=== PATIENT | female | born 1965 | race Caucasian/White ===

== ENCOUNTER 2016-07-25 11:43 | Emergency (ER) | payer MEDICARE, OTHER ==
[2016-07-25 11:50] VITALS: BP 166/98
--- NOTE | 2016-07-25 12:11 | ERNOTE ---
ENT HPI Date of Service: 07/25/16 Time Seen by Provider: 07/25/16 11:52 Source: patient Exam Limitations: no limitations - Immun/Allergies/Home Medications Immunizations: IMMUNIZATION HX Immunizations Up to Date Yes Allergies/Adverse Reactions: Allergies Allergy/AdvReac Type Severity Reaction Status Date / Time Penicillins Allergy Mild Hives Verified 07/25/16 11:50 meloxicam [From Mobic] AdvReac Intermediate swelling Verified 07/25/16 11:50 in extremites acetaminophen [From Percocet] AdvReac Mild "KNOCKS Verified 07/25/16 11:50 HER OUT" aripiprazole [From Abilify] AdvReac Mild lower leg Verified 07/25/16 11:50 edema oxycodone HCl [From Percocet] AdvReac Mild "KNOCKS Verified 07/25/16 11:50 HER OUT" tizanidine [Tizanidine] AdvReac Mild dizzy, dry Verified 07/25/16 11:50 mouth Home Medications: HOME MEDICATIONS Budesonide/Formoterol Fumarate [Symbicort 160-4.5 Mcg Inhaler] 2 puff IH BID [Last Taken Unknown] Esomeprazole Magnesium [Nexium] 40 mg PO DAILY 09/26/13 [Last Taken Unknown] Levothyroxine Sodium [Synthroid] 175 mcg PO DAILY 09/26/13 [Last Taken Unknown] Losartan Potassium 100 mg PO DAILY 09/26/13 [Last Taken Unknown] EPINEPHrine [Epipen] 0.3 mg IJ ONCE PRN 05/01/14 [Last Taken Unknown] Aspirin [Aspirin Enteric Coated] 81 mg PO DAILY 03/16/15 [Last Taken Unknown] ALPRAZolam [Xanax] 1 mg PO BID 06/23/15 [Last Taken Unknown] Clonidine HCl [Catapres] 0.1 mg PO BID #60 tab 06/23/15 [Last Taken Unknown] Meclizine HCl [Antivert] 25 mg PO QID PRN #40 tab 07/01/15 [Last Taken Unknown] Acetaminophen [Extra Strength Non-Aspirin] 1,000 mg PO Q6H PRN 01/12/16 [Last Taken Unknown] Ascorbic Acid [Vitamin C] 1,000 mg PO BID 01/12/16 [Last Taken Unknown] Atorvastatin Calcium [Lipitor] 40 mg PO DAILY 01/12/16 [Last Taken Unknown] Calcium Carbonate/Vitamin D3 [Calcium 600 + Vit D3 Caplet] 1 each PO DAILY 01/11 [Last Taken Unknown] Cholecalciferol (Vitamin D3) [Vitamin D3] 1,000 unit PO DAILY 01/12/16 [Last Taken Unknown] Cyanocobalamin (Vitamin B-12) [B-12] 1,000 mcg PO DAILY 01/12/16 [Last Taken Unknown] Dextroamphetamine/Amphetamine [Adderall 30 mg Tablet] 30 mg PO BID 01/12/16 [ Last Taken Unknown] Ferrous Sulfate 325 mg PO DAILY 01/12/16 [Last Taken Unknown] Lamotrigine [Lamictal] 25 mg PO DAILY 01/12/16 [Last Taken Unknown] Milnacipran HCl [Savella] 50 mg PO BID 01/12/16 [Last Taken Unknown] Multivitamins [Multivitamin Arina] 1 cap PO DAILY 01/12/16 [Last Taken Unknown] Sulindac 200 mg PO BID PRN 01/12/16 [Last Taken Unknown] Ziprasidone HCl [Geodon] 60 mg PO BID 01/12/16 [Last Taken Unknown] HYDROcodone/ACETAMINOPHEN [[place] 5-325] 1 - 2 tab PO Q4H PRN #30 tab 02/02/16 [ Last Taken Unknown] Cephalexin Monohydrate [Keflex] 500 mg PO QID #40 cap 07/25/16 [Last Taken Unknown] - History of Present Illness Narrative: Pt. comes in with a lump on her R christianity that she has had for four months that has worsened over malik past two weeks. Pt. denies any fevers, prehospital treatment, headaches, dizziness, NVD, alleviating factors or aggravating factors but does state that it has become painful to touch recently as well. Review of Systems - Review of Systems Constitutional: Present: no symptoms reported. Absent: recent illness, fever, chills, fatigue, malaise EYE: Present: no symptoms reported ENT: Present: no symptoms reported Respiratory: Present: no symptoms reported. Absent: shortness of breath, cough , wheezing Cardiology: Present: no symptoms reported. Absent: chest pain, palpitations, edema Gastrointestinal/Abdominal: Present: no symptoms reported. Absent: nausea, vomiting, diarrhea Genitourinary: Present: no symptoms reported Musculoskeletal: Present: no symptoms reported. Absent: back pain, joint pain Skin: Present: lumps - R christianity All Other Systems: All systems neg except as marked - Patient's Past Medical History Patient History - Medical: Diabetes Type 2, Depression, Fibromyalgia, GERD, Headache, Hypothyroidism Patient History - Cardiac/Respiratory: Hypertension Patient History - Cancer: Thyroid Patient History - Surgical Procedures: Back Surgery, Cancer Surgery, Cholecystectomy, Colonoscopy, EGD, Tubal Ligation, T & A, Other - Family History Father Family History - Medical: , No pertinent hx Family History - Cardiac/Respiratory: Hypertension, Myocardial Infarction Mother Family History - Medical: , Alzheimer's Disease, Other Family History - Cardiac/Respiratory: CVA/Stroke, Hypertension, TIA - Social History Living Situations: home Smoking Status: Never smoker Have you smoked in the past 12 months: No Alcohol Use: rarely Drug Use: none Physical Exam - Physical Exam General Appearance: Present: wd/wn, alert, no apparent distress Eye Exam: Normal inspection: bilateral, PERRL: bilateral, EOMI: bilateral Ears, Nose, Throat: Present: normal ENT inspection, hearing grossly normal, normal pharynx Neck: Present: normal inspection, nontender Respiratory: Present: no respiratory distress, normal breath sounds, no accessory muscle use, chest nontender, lungs clear Cardiovascular/Chest: Present: regular rate, rhythm, no murmur, normal peripheral pulses Gastrointestinal/Abdominal: Present: normal bowel sounds, nontender, nondistended, soft, no organomegaly Back Exam: Present: normal inspection, normal range of motion, no CVA tenderness , no vertebral tenderness Extremity Exam: Present: normal inspection, non-tender, no edema, normal range of motion Neurological Exam: Present: alert, oriented, normal mood/affect, no motor/ sensory deficits, performance instructor II-XII nml as tested, normal cerebellar test Skin Exam: Present: other - R christianity mass soft nonmobile 3cm in diameter Lymphatic Exam: Present: no adenopathy ED Progress - Date and Time Seen: Date and Time: 07/25/16 12:55 Pt. without any demonstrated cause for Lump will assume that it is localized cellulitis and treat with abx and have pt. follow up with PCP. in 2-3 days. - Results and Orders Patient's Lab Results:: I have reviewed the patient's lab results. - Vital Signs Patient's Vital Signs:: I have reviewed the patient's vital signs. Vital Signs: Vital Signs 07/25/16 11:47 Temperature 36.3 C L Pulse Rate 95 Respiratory 15 Rate Blood Pressure 166/98 O2 Sat by Pulse 98 Oximetry - CT/Ultrasound CT/Ultrasound Narrative: US of lump over temporal area Targeted ultrasound evaluation demonstrates no focal solid or cystic mass or fluid collection. IMPRESSION: 1. Negative targeted ultrasound evaluation. - Progress/Reassessment Chief Complaint: Facial Injury Departure Clinical Impression: Cellulitis Qualifiers: Site of cellulitis: face Qualified Code(s): L03.211 - Cellulitis of face - Departure Disposition: Home self-care Condition: Good Instructions: Cellulitis, Adult, [id number] Additional Instructions: Please follow up with Dr Uvaldo sahrp in 2-3 days. Referrals: Santiago Dougherty MD [Primary Care Provider] - Prescriptions: Cephalexin Monohydrate [Keflex] 500 mg PO QID #40 cap
[2016-07-25 12:26] LABS: Hematocrit 40.7 % (37.0-47.0); Hemoglobin 13.5 gm/dL (12.5-16.0); Mean Cell Volume 87.2 fl (78-100); Mean Corpuscular Hemoglobin 28.9 pg (27-31); Mean Corpuscular Hgb Conc 33.2 g/dl (32-36); Mean Platelet Volume 8.8 fl (6.0-9.5); Neutrophil # 4.2 K/mm3 (1.3-6.0); Neutrophil % 56.6 % (42-75.0); Platelet Count 353 K/mm3 (150-450); Red Blood Count 4.67 M/mm3 (4.2-5.4); Red Cell Distribution Width 13.8 % (11.5-14.0); White Blood Count 7.3 K/mm3 (4.0-10.5)
[2016-07-25 12:48] LABS: Anion Gap 11.7 mmol/L (6.8-13.8); BUN/Creatinine Ratio 16.5 (9.0-21.6); Bilirubin, Total 0.6 mg/dL (0.0-1.1); Ca. Corrected For Albumin 8.8 mg/dL (8.4-10.2); Calcium * 9.1 mg/dL (7.9-10.9); Potassium 3.7 mmol/L (3.4-4.6); TSH * 1.113 uIU/mL (0.358-3.74); Total Protein 7.7 gm/dL (6.2-8.2)
== END 2016-07-25 13:06 | disposition home or self-care (01) ==
LOC: ER 11:43
DX: L03.211 Cellulitis of face (principal); Z90.49 Acquired absence of other specified parts of digestive tract; Z85.850 Personal history of malignant neoplasm of thyroid

== ENCOUNTER 2016-08-14 17:16 | Emergency (ER) | payer MEDICARE, OTHER ==
[2016-08-14 17:54] VITALS: BP 114/81
== END 2016-08-14 19:10 | disposition left against medical advice (07) ==
LOC: ER 17:16
DX: Z53.21 Procedure and treatment not carried out due to patient leaving prior to being seen by health care provider (principal)

== ENCOUNTER 2016-08-15 12:01 | Emergency (ER) | payer MEDICARE, OTHER ==
[2016-08-15] MEDS ORDERED: NORMAL SALINE 1,000 ML IV ONE ×2 (12:46→14:24)
[2016-08-15] MEDS ORDERED: ONDANSETRON HCL/PF 2 MG/ML VIAL IV ONE (12:48)
[2016-08-15 13:13] LABS: Hematocrit 47.1 % (37.0-47.0); Hemoglobin 15.7 gm/dL (12.5-16.0); Mean Cell Volume 85.8 fl (78-100); Mean Corpuscular Hemoglobin 28.6 pg (27-31); Mean Corpuscular Hgb Conc 33.3 g/dl (32-36); Mean Platelet Volume 8.8 fl (6.0-9.5); Neutrophil # 6.9 K/mm3 (1.3-6.0); Neutrophil % 67.6 % (42-75.0); Platelet Count 449 K/mm3 (150-450); Red Blood Count 5.49 M/mm3 (4.2-5.4); Red Cell Distribution Width 13.2 % (11.5-14.0); White Blood Count 10.3 K/mm3 (4.0-10.5)
--- NOTE | 2016-08-15 13:15 | ERNOTE ---
Medical Problem HPI - Narrative Date of Service: 08/15/16 - General Chief Complaint: Nausea/Vomiting Time Seen by Provider: 08/15/16 12:38 Source: patient Exam Limitations: no limitations - Immun/Allergies/Home Medications Immunizations: IMMUNIZATION HX Immunizations Up to Date Yes Allergies/Adverse Reactions: Allergies Penicillins Allergy (Mild, Verified 08/15/16 12:34) Hives meloxicam [From Mobic] Adverse Reaction (Intermediate, Verified 08/15/16 12:34) swelling in extremites acetaminophen [From Percocet] Adverse Reaction (Mild, Verified 08/15/16 12:34) "KNOCKS HER OUT" aripiprazole [From Abilify] Adverse Reaction (Mild, Verified 08/15/16 12:34) lower leg edema oxycodone HCl [From Percocet] Adverse Reaction (Mild, Verified 08/15/16 12:34) "KNOCKS HER OUT" tizanidine [Tizanidine] Adverse Reaction (Mild, Verified 08/15/16 12:34) dizzy, dry mouth Home Medications: HOME MEDICATIONS Budesonide/Formoterol Fumarate [Symbicort 160-4.5 Mcg Inhaler] 2 puff IH BID [Last Taken Unknown] Esomeprazole Magnesium [Nexium] 40 mg PO DAILY 09/26/13 [Last Taken Unknown] Levothyroxine Sodium [Synthroid] 175 mcg PO DAILY 09/26/13 [Last Taken Unknown] Losartan Potassium 100 mg PO DAILY 09/26/13 [Last Taken Unknown] EPINEPHrine [Epipen] 0.3 mg IJ ONCE PRN 05/01/14 [Last Taken Unknown] Aspirin [Aspirin Enteric Coated] 81 mg PO DAILY 03/16/15 [Last Taken Unknown] Clonidine HCl [Catapres] 0.1 mg PO BID #60 tab 06/23/15 [Last Taken Unknown] Meclizine HCl [Antivert] 25 mg PO QID PRN #40 tab 07/01/15 [Last Taken Unknown] Acetaminophen [Extra Strength Non-Aspirin] 1,000 mg PO Q6H PRN 01/12/16 [Last Taken Unknown] Ascorbic Acid [Vitamin C] 1,000 mg PO BID 01/12/16 [Last Taken Unknown] Atorvastatin Calcium [Lipitor] 40 mg PO DAILY 01/12/16 [Last Taken Unknown] Calcium Carbonate/Vitamin D3 [Calcium 600 + Vit D3 Caplet] 1 each PO DAILY 01/11 [Last Taken Unknown] Cholecalciferol (Vitamin D3) [Vitamin D3] 1,000 unit PO DAILY 01/12/16 [Last Taken Unknown] Cyanocobalamin (Vitamin B-12) [B-12] 1,000 mcg PO DAILY 01/12/16 [Last Taken Unknown] Dextroamphetamine/Amphetamine [Adderall 30 mg Tablet] 30 mg PO BID 01/12/16 [ Last Taken Unknown] Ferrous Sulfate 325 mg PO DAILY 01/12/16 [Last Taken Unknown] Lamotrigine [Lamictal] 25 mg PO DAILY 01/12/16 [Last Taken Unknown] Milnacipran HCl [Savella] 100 mg PO BID 01/12/16 [Last Taken Unknown] Multivitamins [Multivitamin Arina] 1 cap PO DAILY 01/12/16 [Last Taken Unknown] ALPRAZolam [Xanax] 0.5 mg PO BID #15 tablet 08/15/16 [Last Taken Unknown] Ondansetron [Zofran Odt] 4 mg PO Q6H PRN #20 tab 08/15/16 [Last Taken Unknown] Ziprasidone HCl [Geodon] 40 mg PO BID #60 cap 08/15/16 [Last Taken Unknown] - History of Present History Narrative: Pt. comes in with c/o nausea and vomiting for seven days and weakness and dizziness as well as ear pain for five days. Pt. denies any change in symptoms with change of position. Pt. states that she has not been able to keep down foods or fluid in seven days. Pt. denies any SOB, CP, diarrhea, fever, alleviating factors or prehospital treatment. Review of Systems - Review of Systems Constitutional: Present: weakness, fatigue, malaise. Absent: recent illness, fever, chills EYE: Present: no symptoms reported ENT: Present: ear pain. Absent: ear discharge, nose pain, nose congestion Respiratory: Present: no symptoms reported. Absent: shortness of breath, cough , wheezing Cardiology: Present: no symptoms reported. Absent: chest pain, palpitations, edema Gastrointestinal/Abdominal: Present: nausea, vomiting. Absent: diarrhea Genitourinary: Present: no symptoms reported Musculoskeletal: Present: no symptoms reported. Absent: back pain, joint pain Skin: Present: no symptoms reported. Absent: rash, change in hair/nails Neurological: Present: dizziness/light-headedness. Absent: headache All Other Systems: All systems neg except as marked - Patient's Past Medical History Patient History - Medical: Diabetes Type 2, Depression, Fibromyalgia, GERD, Headache, Hypothyroidism Patient History - Cardiac/Respiratory: Asthma, Hypertension, Hyperlipidemia Patient History - Cancer: Thyroid Patient History - Surgical Procedures: Back Surgery, Cancer Surgery, Cholecystectomy, Colonoscopy, EGD, Tubal Ligation, T & A, Other Patient History - Other: None - Family History Father Family History - Medical: , No pertinent hx Family History - Cardiac/Respiratory: Hypertension, Myocardial Infarction Mother Family History - Medical: , Alzheimer's Disease, Other Family History - Cardiac/Respiratory: CVA/Stroke, Hypertension, TIA - Social History Living Situations: home Smoking Status: Never smoker Have you smoked in the past 12 months: No Alcohol Use: rarely Drug Use: none - Immunizations Immunizations Up to Date: Yes Physical Exam - Physical Exam General Appearance: Present: wd/wn, alert, no apparent distress Eye Exam: Normal inspection: bilateral, PERRL: bilateral, EOMI: bilateral Ears, Nose, Throat: Present: abnormal TM (R) - red anwith purulent drainage and fullness, sinus pain/drainage, normal pharynx, dry mucous membranes. Absent: pharyngeal erythema, pharyngeal swelling, tonsillar exudate Neck: Present: normal inspection, nontender. Absent: lymphadenopathy (R), lymphadenopathy (L) Respiratory: Present: no respiratory distress, normal breath sounds, no accessory muscle use, chest nontender, lungs clear Cardiovascular/Chest: Present: no murmur, normal peripheral pulses, tachycardia Gastrointestinal/Abdominal: Present: normal bowel sounds, tenderness - mid upper epigastric. Absent: rebound, McBurney sign, Obturator sign, Unger sign, mass Back Exam: Present: normal inspection, normal range of motion, no CVA tenderness , no vertebral tenderness Extremity Exam: Present: normal inspection, non-tender, no edema, normal range of motion Neurological Exam: Present: alert, oriented, no motor/sensory deficits, other - flat affect appears overmedicated Skin Exam: Present: normal color, warm/dry. Absent: pallor, skin rash ED Progress - Date and Time Seen: Date and Time: 08/15/16 14:17 Am concerned as pt. with elevated CO2 level will check ABG for evidence of hyper carbia as venous CO2 is elevated and pt. appears over medicated. 08/15/16 16:[address] Halina Ervin and we both feel that pt. medications should be decreased so she is less weak and lethargic. - Results and Orders Patient's Lab Results:: I have reviewed the patient's lab results. - Vital Signs Patient's Vital Signs:: I have reviewed the patient's vital signs. Vital Signs: Vital Signs 08/15/16 12:32 Temperature 36.2 C L Pulse Rate 91 Respiratory 15 Rate Blood Pressure 160/101 O2 Sat by Pulse 96 Oximetry - Progress/Reassessment Chief Complaint: Nausea/Vomiting Progress:: Improved Departure - Departure Clinical Impression: Gastroenteritis, Medication adverse effect Disposition: Home self-care Condition: Good Instructions: Viral Gastroenteritis, Adult, [id number] Additional Instructions: Please follow up with Dr Halina ervin this week in 2-3 days. Please cut xanax in half and stop current geodon and start new smaller dose prescription. Referrals: Santiago Dougherty MD [Primary Care Provider] - Prescriptions: ALPRAZolam [Xanax] 0.5 mg PO BID #15 tablet Ondansetron [Zofran Odt] 4 mg PO Q6H PRN #20 tab PRN Reason: Nausea Ziprasidone HCl [Geodon] 40 mg PO BID #60 cap
[2016-08-15] MEDS ORDERED: ONDANSETRON HCL/PF 2 MG/ML VIAL ONE (13:18)
[2016-08-15 13:23] LABS: Urine Bilirubin Negative (NEGATIVE); Urine Blood Negative /ul (NEGATIVE); Urine Ketone Negative (NEGATIVE); Urine Nitrite Negative (NEGATIVE); Urine Protein Negative (NEGATIVE); Urine Specific Gravity 1.025 SP.GR. (1.005-1.010); Urine Urobilinogen Normal (NORMAL)
[2016-08-15 13:26] LABS: Anion Gap 14.1 mmol/L (6.8-13.8); BUN/Creatinine Ratio 22.6 (9.0-21.6); Bilirubin, Total 0.7 mg/dL (0.0-1.1); Ca. Corrected For Albumin 9.7 mg/dL (8.4-10.2); Carbon Dioxide 34.1 mmol/L (24-32.6); Potassium 3.2 mmol/L (3.4-4.6); Total Protein 8.9 gm/dL (6.2-8.2)
[2016-08-15 13:40] LABS: Cocaine Ur Negative (NEGATIVE); Urine Barbiturate Negative (NEGATIVE); Urine Opiates Negative (NEGATIVE); Urine PCP Negative (NEGATIVE); Urine THC Negative (NEGATIVE)
[2016-08-15 13:42] LABS: Urine Benzodiazepines Positive (NEGATIVE)
[2016-08-15 13:47] LABS: Urine Appearance Clear; Urine Bacteria 1+; Urine Color Yellow; Urine Fine Granular Cast TRACE /LPF; Urine RBC 0-5 /hpf (0-5); Urine WBC TRACE /hpf (0-5)
[2016-08-15] MEDS ORDERED: POTASSIUM CHLORIDE 20 MEQ TABLET.SA PO ONE (14:14)
[2016-08-15] MEDS ORDERED: POTASSIUM CHLORIDE 20 MEQ TABLET.SA ONE (14:19)
[2016-08-15 15:42] LABS: Venous Blood Gas HCO3 25.7 mmol/L (22.0-29.0); Venous Blood Gas pH 7.39 (7.32-7.43)
[2016-08-15 16:18] LABS: T4 Free * 1.37 ng/dL (0.76-1.46); TSH * 2.349 uIU/mL (0.358-3.74)
[2016-08-15 17:36] VITALS: BP 125/76
== END 2016-08-15 16:29 | disposition home or self-care (01) ==
LOC: ER 12:01
DX: K52.9 Noninfective gastroenteritis and colitis, unspecified (principal); T50.905A Adverse effect of unspecified drugs, medicaments and biological substances, initial encounter; Z90.49 Acquired absence of other specified parts of digestive tract; Z85.850 Personal history of malignant neoplasm of thyroid
CPT/HCPCS: 36415; 36416; 80053; 81001; 82803; 84439; 84443; 85025; 96374; 99283; G0479

== ENCOUNTER 2016-10-02 09:14 | Day surgery (SDC) | payer MEDICARE, OTHER ==
[~2016-10-02 09:14] MED LIST: RINGERS SOLUTION,LACTATED 1,000 ML IV PRN; ceFAZolin SODIUM 1 GM VIAL IV PRN
--- OUTSIDE RECORDS SUMMARY | 2016-10-02 09:19 | XMS REPORT | Continuity of Care Document ---
:1965 Author Organization [facility] ([facility]) Address [address] [place] [address] Phone [phone] Care Team Providers Name Role Phone Santiago Avitia Primary Care Provider [phone] Source Comments This disclosure is being made pursuant to the Care Everywhere program, applicable federal and state laws, and may not contain all informaitonavailable regarding this patient.[facility] ([facility]) Active Allergies and Adverse Reactions Allergen Noted Date Severity Reactions Comments Gemfibrozil Angioedema Meloxicam 12/10/2015 Angioedema Penicillins Urticaria (Hives) Pregabalin 12/10/2015 Unknown Tizanidine 12/10/2015 Unknown Tramadol 12/10/2015 Unknown Current Medications Prescription Sig. Disp. Refills Start Date End Date Status cyanocobalamin Take 1,000 mcg by Active (VITAMIN B-12) 1,000 mouth daily. mcg tablet MULTIVIT WITH Take by mouth. Active CALCIUM,IRON,MIN (ONE DAILY WOMEN'S PO) levothyroxine 175 mcg Take 175 mcg by 10/25/2011 Active tablet mouth daily. esomeprazole 40 mg EC Take 40 mg by 07/29/2014 Active capsule mouth daily. ALPRAZolam 2 mg tablet Take 1 mg by mouth Active daily as needed for anxiety and 2 mg by mouth every evening atorvastatin 40 mg Take 40 mg by 11 11/19/2015 Active tablet mouth daily. ziprasidone 60 mg Take 60 mg by 5 11/19/2015 Active capsule mouth at bedtime. SAVELLA 50 mg tablet take 1 tablet (50 5 01/28/2016 Active mg) by oral route 2 times per day sulindac 200 mg tablet take 1 tablet (200 5 01/28/2016 Active mg) by oral route 2 times per day with food for 30 days (filled 02/26/16) cloNIDine HCl 0.1 mg Take 0.1 mg by Active tablet mouth 2 times daily. losartan 100 mg tablet Take 100 mg by Active mouth daily. dextroamphetamine-amph Take 30 mg by Active etamine 30 mg tablet mouth twice daily before breakfast and at 2 pm budesonide-formoterol Use 2 Puffs by Active (SYMBICORT) 160-4.5 inhalation 2 times mcg/Actuation inhaler daily. meclizine 25 mg tablet Take 25 mg by Active mouth 3 times daily as needed. aspirin 81 mg EC Take 1 tablet (81 30 tablet 11 03/16/2016 Active tablet mg total) by mouth daily. furosemide PO Active cefdinir 300 mg Take 300 mg by Active capsule mouth 2 times daily. Active Problems Problem Noted Date Brain tumor 03/09/2016 Hepatomegaly 12/10/2015 Fatty liver 12/10/2015 Hemangioma of liver 12/10/2015 Arthritis of right knee 11/13/2011 Anterior knee pain 11/13/2011 Knee pain 12/01/2008 Weight gain 12/01/2008 Overview: Occurred while Haldol and Cogentin. 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 Last Filed Vital Signs Vital Sign Reading Time Taken Blood Pressure 146/100 05/01/2016 2:38 PM CDT Pulse 98 05/01/2016 2:38 PM CDT Temperature 36.2 C (97.2 F) 05/01/2016 2:38 PM CDT Respiratory Rate 16 03/11/2016 3:57 PM CDT Height 1.575 m (5' 2") 05/01/2016 2:38 PM CDT Weight 111.131 kg (245 lb) 05/01/2016 2:38 PM CDT Body Mass Index 44.8 05/01/2016 2:38 PM CDT Oxygen Saturation 95% 03/11/2016 3:57 PM CDT Plan of Care Date Type Specialty Providers Description 11/20/2016 Appointment Radiology Subj: Appointment Rescheduled 11/20/2016 Appointment Neurosurgery Oswaldo Cuevas III, Subj: Appointment Rescheduled [address] [place] [address] [phone] (Fax) Health Maintenance Due Date Last Done Comments Hepatitis B Vaccine (1 of 3 - Primary Series) 1965 Tdap Vaccine 1975 MMR Vaccine 1982 Td Vaccine 1982 Pneumococcal Vaccine (1 of 1 - PPSV23) 1983 Cervical Cancer Screening 1994 Mammogram 2004 Lipid Disorder Screening 02/22/2012 02/21/2007 Colonoscopy 2014 Influenza Vaccine: Seasonal (#1) 02/14/2016 HCV Screening Completed 12/10/2015 Results from Last 3 Months Not on file
[2016-10-02] MEDS ORDERED: RINGERS SOLUTION,LACTATED 1,000 ML IV ONE ×2 (10:29→12:15)
--- NOTE | 2016-10-02 12:27 | OR ---
Operative Report - Dictated Report Narrative: Date: 10/02/2016 Physician: Yasmany Keller M.D. Cook Tortilla: Gerry Carbone PA-C Preoperative diagnosis: Right Shoulder partial thickness supraspinatus rotator cuff tear Postoperative diagnosis: Right Shoulder partial thickness supraspinatus rotator cuff tear, type I labral tear Procedure: Right shoulder arthroscopy with mini open rotator cuff repair supraspinatus and arthroscopic debridement of the labrum Anesthesia: General plus regional Complications: None Estimated blood loss: Minimal Specimens: None Retained implants: [employer] 4.5 mm peek helicoil anchor 2, footprint anchor 1 Drains: None Indications: Mrs. Burrell Is a 51 year-old female who has been followed in my clinic with complaints of shoulder pain consistent rotator cuff pathology. Physical exam and diagnostic imaging were consistent with his complaints and concern for greater than 50% partial-thickness rotator cuff tear. Conservative measures have failed including, but not limited to, passage of time, activity modification, medications, physical therapy/home exercise program, or injections. The risks, benefits, and alternatives were discussed in clinic. The risks being , bleeding, infection, blood clots, nerve, tendon, ligament , blood vessel injury, persistent pain, arthrosis, stiffness, need for prolonged therapy, need for additional procedures, and persistent symptoms. Consent was obtained in the clinic. Procedure: After marking the correct extremity in the preoperative holding area, a timeout was performed in the operating room. IV antibiotics consisting of Ancef were administered prior to the procedure. A general followed by regional anesthetic was induced by the nurse lawn mower sharpener. This was in the supine position, then the patient was transitioned to a beachchair position with all bony prominences well-padded, head in neutral, the nonoperative arm well supported, and the legs padded with SCDs in place. The operative shoulder was then prepped and draped in a standard sterile fashion. Preoperatively the shoulder had full passive range of motion, and, gross instability. After marking out the bony landmarks, saline was infused into the joint through a posterior lateral portal site. A elke incision was made, and the blunt trocar and cannula was introduced into the shoulder joint. An accessory portal was placed in the rotator cuff interval using a spinal needle for guidance. Upon initial evaluation, the biceps tendon showed noted tendinopathy or tear. The middle glenohumeral ligament was intact. Subscapularis tendon was frayed but intact. The glenoid showed no degeneration. The humeral head articular surface showed noted degeneration. The anterior labrum was frayed but not torn off. The superior labrum was frayed but not torn off. The pouch was unremarkable. The posterior labrum was unremarkable. The supraspinatus tendon was head greater than 50% thickness tear of the tendon from just behind the biceps to the infraspinatus. The infraspinatus tendon was intact. Utilizing a shaver the labrum and rotator cuff footprint and torn portion of the rotator cuff were debrided. An accessory lateral portal was made over the rotator cuff tear and the remaining fibers were released allowing for the debridement of the remaining portion of the footprint. Attention was then turned to the subacromial space. Subacromial bursectomy was performed utilizing the prior portals. The coracoacromial ligament was unremarkable. The bursal side of the rotator cuff demonstrated a full- thickness tear as identified intra-articularly. The acromial arch was unremarkable. Based on the arthroscopic findings, as well as exam and radiographic findings, it was elected to proceed with a mini open rotator cuff repair. A longitudinal incision centered over the previously identified rotator cuff tear was made just off the edge of the acromion. This was approximately four centimeters in length. The deltoid fascia was split sharply in line with its fibers, and blunt dissection was carried through the deltoid muscle. Any remaining subacromial bursal tissue was debrided in order to expose the underlying rotator cuff tear. The rotator cuff tear appeared to be a U-shaped in orientation. The tuberosity was debrided of its soft tissues producing a bleeding bed for the tendon to be secured to. 2 4.5 mm PEEK helicoil anchor was placed just off the articular surface of the humeral head. A series of horizontal mattress sutures were placed at the prepared edge of the rotator cuff. This allowed for a tension-free return of the tendon to the greater tuberosity. The sutures were then passed longitudinally into 1 4.5 mm PEEK footprint anchor. This was performed and a suture bridge technique. This gave good overall compression to the rotator cuff at the insertion site. The shoulders place a range of motion and had no lift off of the repair site as well as no crepitance or signs of impingement. Full passive range of motion was able to be obtained. Once it was felt that the rotator cuff was adequately repaired, the wounds were thoroughly irrigated. 0 Vicryl was utilized in order to repair the deltoid fascia. 3-0 Vicryl was placed in the subcutaneous tissue. The rotator cuff incision as well as the portal sites were closed with interrupted nylon. Dressings consisting of Xeroform, 4 x 4, ABD, soft roll, and tape were applied. All sponge, needle, blade, and instrument counts were correct prior to closing the wounds. The patient was awoken and transferred to the postanesthesia care unit in stable condition.
[2016-10-02 14:11] VITALS: BP 156/94
== END 2016-10-02 09:15 | disposition home or self-care (01) ==
LOC: AMB 09:14
PROVIDERS: ATTEND Orthopaedic Surgery
PROC: 0LQ10ZZ Repair Right Shoulder Tendon, Open Approach (ICD-10-PCS; 2016-10-02)
PROC: 0RBJ4ZZ Excision of Right Shoulder Joint, Percutaneous Endoscopic Approach (ICD-10-PCS; principal; 2016-10-02 11:20)
DX: M75.111 Incomplete rotator cuff tear or rupture of right shoulder, not specified as traumatic (principal); S43.491A Other sprain of right shoulder joint, initial encounter; I10 Essential (primary) hypertension; E11.9 Type 2 diabetes mellitus without complications; K21.9 Gastro-esophageal reflux disease without esophagitis; J45.909 Unspecified asthma, uncomplicated; E78.5 Hyperlipidemia, unspecified; F32.9 Major depressive disorder, single episode, unspecified; E66.01 Morbid (severe) obesity due to excess calories; Z68.42 Body mass index [BMI] 45.0-49.9, adult; Z87.891 Personal history of nicotine dependence

== ENCOUNTER 2017-02-03 08:00 | Emergency (ER) | payer MEDICARE, OTHER ==
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
[2017-02-03 08:42] VITALS: BP 150/81
== END 2017-02-03 08:55 | disposition home or self-care (01) ==
LOC: ER 08:00
DX: S49.91XA Unspecified injury of right shoulder and upper arm, initial encounter (principal); W18.09XA Striking against other object with subsequent fall, initial encounter; Y93.89 Activity, other specified; Y92.009 Unspecified place in unspecified non-institutional (private) residence as the place of occurrence of the external cause; E11.9 Type 2 diabetes mellitus without complications; M79.7 Fibromyalgia; K21.9 Gastro-esophageal reflux disease without esophagitis; E03.9 Hypothyroidism, unspecified; I10 Essential (primary) hypertension; E78.5 Hyperlipidemia, unspecified; Z85.850 Personal history of malignant neoplasm of thyroid

== ENCOUNTER 2017-03-11 09:40 | Emergency (ER) | payer MEDICARE, OTHER ==
[2017-03-11 09:49] VITALS: BP 154/92
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
== END 2017-03-11 10:36 | disposition home or self-care (01) ==
LOC: ER 09:40
DX: J01.10 Acute frontal sinusitis, unspecified (principal); R42 Dizziness and giddiness

== ENCOUNTER 2017-06-04 06:43 | Inpatient (IN) | payer MEDICARE, OTHER ==
[~2017-06-04 06:43] MED LIST changes: +MORPHINE SULFATE 15 MG TABLET.SA PO PRN; +RINGER'S SOLUTION,LACTATED 1,000 ML IV PRN; -RINGERS SOLUTION,LACTATED 1,000 ML IV PRN; +ROPIVACAINE HCL/PF 100 MG, EPINEPHrine 0.2 MG, KETOROLAC TROMETHAMINE 30 MG in NORMAL S... IJ PRN; +TRANEXAMIC ACID 1,000 MG in NORMAL SALINE 100 ML IV PRN; -ceFAZolin SODIUM 1 GM VIAL IV PRN
[2017-06-04] MEDS ORDERED: RINGER'S SOLUTION,LACTATED 700 ML IV ONE (09:10)
[2017-06-04] MEDS: ceFAZolin SODIUM 1 GM VIAL IV PRN ×2 (09:20→10:20)
[2017-06-04] MEDS ORDERED: RINGER'S SOLUTION,LACTATED 1,000 ML IV ONE (11:48)
[2017-06-04] MEDS ORDERED: HYDROmorphone HCL 1 MG/ML DISP.SYRIN IV PRN (11:52)
[2017-06-04] MEDS ORDERED: ACETAMINOPHEN 500 MG TABLET PO PRN (11:52)
[2017-06-04] MEDS ORDERED: diphenhydrAMINE HCL 50 MG/ML VIAL IV PRN (11:52)
[2017-06-04] MEDS ORDERED: MAG HYDROX/ALUMINUM HYD/SIMETH 30 ML UDC PO PRN (11:52)
[2017-06-04] MEDS ORDERED: PROMETHAZINE HCL 5 MG in DEXTROSE 5 % IN WATER 50 ML IV PRN ×2 (11:52)
[2017-06-04] MEDS ORDERED: RINGER'S SOLUTION,LACTATED 1,000 ML IV PRN (11:52)
[2017-06-04] MEDS ORDERED: ZOLPIDEM TARTRATE 5 MG TABLET PO PRN (11:52)
[2017-06-04] MEDS ORDERED: MAGNESIUM HYDROXIDE 30 ML UDC PO PRN (11:52)
[2017-06-04] MEDS ORDERED: ONDANSETRON HCL/PF 2 MG/ML VIAL IV PRN (11:52)
[2017-06-04] MEDS ORDERED: ALPRAZolam 1 MG TABLET PO PRN (11:54)
[2017-06-04] MEDS ORDERED: MECLIZINE HCL 25 MG TABLET PO PRN (11:54)
[2017-06-04] MEDS ORDERED: EPINEPHrine 0.3 MG DISP.SYRIN IM PRN (11:54)
[2017-06-04] MEDS ORDERED: FLUTICASONE/SALMETEROL 14 PUFF DISK.W.DEV IH PRN (11:54)
--- NOTE | 2017-06-04 11:56 | POSTOP NO ---
Date of Surgery: 06/04/17 Anesthesia: Spinal, regional, local Patient Tolerated the Procedure: Well Post Operative Diagnosis/Procedures: Clean Out Driller Helper: Lucien Pagan PA-C Post-operative Diagnosis: Right knee degenerative joint disease Finding: Above Procedure: Right total knee arthroplasty Estimated Blood Loss: Minimal Specimens: Bone for disposal
--- NOTE | 2017-06-04 11:58 | OR ---
Operative Report - Dictated Report Narrative: Date: 06/04/2017 Preoperative diagnosis: Right Knee degenerative joint disease. Postoperative diagnosis: Right Knee degenerative joint disease. Procedure: Right Total knee arthroplasty. Surgeon: Yasmany Keller M.D. Certified Juvenile Probation Officer: Lucien Pagan PA-C Anesthesia: Spinal with regional block and local periarticular joint injection. Complications: None Specimens: Bone for disposal. Estimated blood loss: Minimal. Tourniquet time: 98 Minutes at 350 millimeters of mercury. Retained implants: Depuy Attune size 5 narrow right lugged cemented posterior stabilized femoral component. Size 4 fixed-bearing cemented tibial platform. 5 by 6 millimeter posterior stabilized cross-linked tibial insert. 35 millimeter medialized patella button. Indications: Mrs. Burrell is a 52-year-old female who has had long-standing right knee pain and arthrosis. This patient was followed in my clinic for period of time with significant complaints of right knee pain consistent with arthritic changes. She had failed conservative measures including, but not limited to, activity modification, passage of time, medications, and other conservative measures. Patient wished to proceed with surgical treatment. The risks, benefits, and alternatives were discussed in clinic. The risks of , blood clots, bleeding, infection, nerve/tendon blood vessel/ injury, malposition of components, intraoperative fracture, postoperative limited range of motion, persistent pain, failure of components, and need for additional procedures. Patient wished to proceed consent was obtained after answering all questions. Procedure: After marking the correct extremity on the floor, the patient was taken to the operating room. A timeout was performed. IV antibiotics consisting of Ancef were administered prior to the procedure. A regional followed by spinal anesthetic was induced by anesthesia, per my request, on the operative table with all bony prominences well-padded. Saleh catheter was placed, and a bump was placed under the operative side buttock. SCDs and NATY hose were utilized on the nonoperative leg. A well-padded tourniquet was applied to the operative thigh. The operative leg was then pre-scrubbed with alcohol prepped, and draped in a standard sterile fashion. After exsanguinating the extremity with an Esmarch bandage, the tourniquet was inflated. After marking out the anterior knee for standard incision centered over the patella, the skin was incised and dissected down to the joint retinaculum. The joint retinaculum was marked out as well as the horizontal axis of the patella, and a standard medial parapatellar arthrotomy was then made. The most proximal aspect of the quadriceps tendon and the patella tendon insertion were protected from release. A partial synovectomy was performed as well as a resection of the infrapatellar fat pad. The distal femoral fat pad proximal to the trochlea was also resected using cautery. The soft tissues were elevated off the medial aspect of the proximal tibia using a Carrasco elevator ensuring that we did not transect the medial collateral ligament. Upon initial evaluation range of motion was approximately 0 degrees to 120 degrees of flexion. There were signs of advanced arthrosis in the medial, lateral, and patellofemoral joint spaces. There were large marginal osteophytes which were removed with a rongeur. The knee was hyperflexed and the patella was tucked laterally. Protecting the surrounding soft tissues with Homans, an entry drill was placed down the femoral canal using Whitesides line for guidance into the entry point. The intramedullary femoral alignment adwoa was utilized in order to cut the distal femur in 5 degrees of valgus resecting 10 millimeters of bone. Next the distal femur was sized to a size 5. A posterior referencing guide was utilized to place the distal femoral cutting block in 3 degrees of external rotation. This was pinned into place. The rotation was confirmed both visually and based on anatomic landmarks. The 4 in 1 cutting jig of the appropriate size was utilized in order to make all bony cuts. The angle wing was used to ensure no notching. Retractors were utilized in order to protect surrounding soft tissues. This cut did not result in any excessive notching. We then cut the box centered over the distal femur. This allowed for resection of the anterior and posterior cruciate ligaments. I then turned my attention to the preparation of the tibia. Using an extra medullary tibial alignment adwoa, 3 millimeters of bone was resected off the medial articular surface. This was made perpendicular to the mechanical axis of the joint with the alignment adwoa centered over the ankle mortise. The alignment adwoa was checked and was noted to be parallel to the mechanical axis, centered over the medial one third of the tibial tubercle, paralleling the anterior surface of the tibia. We then turned our attention to the remaining meniscus and soft tissues. These were removed while protecting the surrounding ligaments and soft tissues. The marginal osteophytes off the anterior, posterior, medial, lateral aspects of the femur and tibia were removed. The tibia was sized out to a size 4. Next the tibia was drilled and punched in an externally rotated position. Next the trial femur and a series of tibial inserts were utilized in order to allow for full extension and maximal flexion. It was found that a 6 millimeter insert gave the best range of motion and stability at multiple flexion points as well as at full extension there was less than 2 mm of gapping both medially and laterally. There is minimal anterior translation with the knee at 90 degrees of flexion and no signs of being able to dislocate the knee. The patella was then prepared. The initial thickness was 22 millimeters. This was reamed down to 12 millimeters parallel to the anterior surface of the patella. It was sized out to a size 35 medialized patella button. This was then drilled and trialed. Without any medial restraint the patella tracked appropriately and did not sublux or dislocate. At this point, it was felt these were the appropriate sized implants, and all trials were removed. The standard periarticular joint injection consisting of ropivacaine, Toradol, and epinephrine were injected into the periarticular joint tissues. The bony surfaces were thoroughly irrigated with a pulsatile- suction saline irrigation device. A bone plug from the prior resected anterior chamfer cut was placed into the drill hole at the distal femur. The bony surfaces were then dried in preparation for placement of the implants. The cement was vacuum mixed per the shear helper's instructions. The cement was placed on the dry bony surfaces and posterior aspect of the implants. The implants were impacted into place, removing all extruded cement. At this point anesthesia administered tranexamic acid per protocol intravenously. The knee was placed in extension with axial loading with the trial insert while the cement cured. Once the cement cured, all remaining extruded cement was removed. The knee was placed through a range of motion with the trial insert to ensure appropriate range of motion and stability. Final range of motion was approximately 0 to 120 degrees. The knee was again thoroughly irrigated with pulsatile saline lavage. The final polyethylene insert was then impacted into place ensuring no retained soft tissues. The remaining periarticular joint injection was injected. A medium Hemovac drain was placed exiting superior laterally. The knee was then placed over a triangle and the arthrotomy was closed with interrupted #1 Vicryl after thoroughly irrigating the joint. The deep and subcutaneous tissues were closed with interrupted 0 and 3-0 Vicryl respectively. Skin was closed with a running subcutaneous 3-0 Monocryl and Prineo Dermabond dressing. 4 x 4's, Sof-Rol, and a full leg Collin wrap were applied. All sponge, needle, blade, and instrument counts were correct prior to closing the wounds. Postoperative condition: The patient was awoken and transferred to the postanesthesia care unit in stable condition. Plan is to be admitted to the inpatient medical/surgical floor postoperatively for 24 hours of IV antibiotics , physical therapy, occupational therapy, and medical comanagement. Patient will be weightbearing as tolerated with range of motion as tolerated. DVT prophylaxis will be with SCDs, NATY hose, and pharmacological anticoagulation. Anticipated hospital stay is approximately 2-4 days.
--- NOTE | 2017-06-04 12:25 | OR ---
Anesthesia Procedure Note - Anesthesia Procedure Note Date of Service: 06/04/17 Narrative: Vital Signs - Last Taken Temp 36.5 C 06/04/17 12:20 Pulse 87 06/04/17 12:20 Resp 18 06/04/17 12:20 BP 96/51 06/04/17 12:20 Pulse Ox 95 06/04/17 12:20 O2 Oxygen Delivery Method Room Air 06/04/17 12:24 ANESTHESIA PROCEDURE NOTE Date of Procedure: 06/04/2017. Time of procedure: 924. Performed by: Lalit Rhodes CRNA Market Master: None. Preprocedure diagnosis: Right knee degenerative disc disease. Post procedure diagnosis: Same. Procedure: Right ultrasound guided femoral block for postoperative analgesia. Indications: The patient is a 52 -year-old female, who is requesting a right ultrasound-guided femoral nerve block for postoperative analgesia related to right total knee arthroplasty. Findings: See below. Details of the procedure: The tissue over the intended target site was cleansed with ChloraPrep. 1 ml Lidocaine 1 % was infiltrated to the skin and subcutaneous tissue. Under sterile technique and ultrasound guidance a 21-gauge block needle was inserted anterior to the right femoral nerve . 30 mL's of 0.5 % bupivacaine plus epinephrine 1:200,000 was injected after negative aspiration for blood. Needle tip and spread of local anesthetic surrounding the femoral nerve was observed throughout the injection with realtime ultrasound visualization. The needle was removed intact. No complications were noted. The images were retained in the Hospital medical database . EBL: Minimal. Fluids: N/A. Specimen: N/A. Post procedure condition: The patient tolerated the procedure well. No complications were noted. Thank you for this consultation. Lalit Rhodes CRNA
[2017-06-04] MEDS: ceFAZolin SODIUM 1 GM in DEXTROSE 5 % IN WATER 100 ML IV SCH ×4 (13:48→18:52)
[2017-06-04] MEDS: KETOROLAC TROMETHAMINE 15 MG/ML VIAL IV SCH ×2 (13:49→18:52)
[2017-06-04] MEDS: oxyCODONE HCL/ACETAMINOPHEN 1 TAB TABLET PO PRN ×2 (16:32→20:52)
[2017-06-04] MEDS: ATORVASTATIN CALCIUM 40 MG TABLET PO SCH (20:52)
[2017-06-04] MEDS: ALPRAZolam 1 MG TABLET PO SCH (20:52)
[2017-06-04] MEDS: CLONIDINE HCL 0.1 MG TABLET PO SCH (20:52)
[2017-06-04] MEDS: MORPHINE SULFATE 15 MG TABLET.SA PO SCH (20:53)
[2017-06-04] MEDS: ASCORBIC ACID 500 MG TABLET PO SCH (20:53)
[2017-06-04] MEDS: SENNOSIDES/DOCUSATE SODIUM 1 TAB TABLET PO SCH (20:54)
[2017-06-04] MEDS: Milnacipran Hcl [Savella] 100 MG PO SCH (20:57)
[2017-06-04] MEDS: Zaleplon [Sonata] 10 MG PO SCH (20:58)
[2017-06-05] MEDS: KETOROLAC TROMETHAMINE 15 MG/ML VIAL IV SCH ×4 (00:30→20:16)
[2017-06-05] MEDS: oxyCODONE HCL/ACETAMINOPHEN 1 TAB TABLET PO PRN ×2 (00:34→15:10)
[2017-06-05] MEDS: ceFAZolin SODIUM 1 GM in DEXTROSE 5 % IN WATER 100 ML IV SCH ×2 (01:40)
[2017-06-05 06:21] LABS: Hematocrit 39.1 % (37.0-47.0); Hemoglobin 12.9 gm/dL (12.5-16.0); Mean Platelet Volume 9.1 fl (6.0-9.5); Platelet Count 331 K/mm3 (150-450); Red Cell Distribution Width 13.6 % (11.5-14.0); White Blood Count 11.2 K/mm3 (4.0-10.5)
[2017-06-05 06:32] LABS: Anion Gap 10.4 mmol/L (6.8-13.8); BUN/Creatinine Ratio 23.1 (9.0-21.6); Calcium * 8.7 mg/dL (7.9-10.9); Carbon Dioxide 31.3 mmol/L (24-32.6); Potassium 3.7 mmol/L (3.4-4.6)
[2017-06-05] MEDS: LEVOTHYROXINE SODIUM 100 MCG TABLET PO SCH (06:55)
[2017-06-05] MEDS: PANTOPRAZOLE SODIUM 40 MG TABLET.EC PO SCH (06:55)
--- NOTE | 2017-06-05 07:47 | PN ---
Subjective - Date and Time Seen Date: 06/05/17 Time: 07:41 Subjective Narrative: Doing well post op. Very little pain. Objective - Review of Systems Generalized/Overall Review: Reports: No Symptoms Reported EENTM: Reports: No Symptoms Reported Respiratory: Reports: No Symptoms Reported Cardiac: Reports: No Symptoms Reported Abdominal: Reports: No Symptoms Reported Genitourinary Symptoms: Reports: No Symptoms Reported Musculoskeletal Complaints: Reports: Other - right leg wrapped Neurological: Reports: No Symptoms Reported Skin: Reports: No Symptoms Reported Endocrine: Reports: No Symptoms Reported Misc: All systems neg except as marked - Vitals Vitals: Last Vital Signs Selected Entries 06/05/17 07:06 Temperature 36.8 C Temperature Oral Source Pulse Rate 92 Respiratory 18 Rate Respiratory Normal Depth Blood Pressure 142/88 Blood Pressure Supine Position O2 Sat by Pulse 92 Oximetry Oxygen Delivery Room Air Method Oxygen Flow 0 Rate - Abnormal Lab Findings Abnormal Lab Findings: Abnormal Lab Results 06/05/17 06/05/17 Range/Units 05:40 05:40 WBC 11.2 H (4.0-10.5) K/mm3 BUN/Creatinine Ratio 23.1 H (9.0-21.6) Random Glucose 115 H (70-110) mg/dL - Exam Constitutional: Present: Alert, Oriented x3, Cooperative, Well developed, No distress, Morbidly obese ENT Exam: Present: normal ENT inspection, hearing grossly normal Neck: Present: normal inspection Respiratory: Present: normal breath sounds, no respiratory distress Cardiovascular/Chest: Present: regular rate, rhythm, no murmur Abdomen: Present: Normal bowel sounds, soft, nontender, nondistended, no rebound tenderness, no hepatospenomegaly, no masses, obese Extremity: Present: other - right leg wrapped Skin Exam: Present: normal color, warm/dry, no cyanosis Neurologic: Present: alert, oriented x 3 Appearance: Present: appropriate appearance, appropriate insight, neat, no memory impairment Eye contact: Present: cooperative, good eye contact, normal speech Thoughts: Present: normal thought pattern Cauti Physician Documentation - Urinary Catheter Management 2-way Urethral Date of Insertion: 06/04/17 Time of Insertion: 09:45 Date of Removal: 06/05/17 Time of Removal: 07:03 Assessment/Plan Plan Narrative: Follow post op protocol - Problems/Diagnosis (1) S/P right knee surgery Problem: Acute
[2017-06-05] MEDS: POTASSIUM CHLORIDE 10 MEQ TABLET.SA PO SCH (09:22)
[2017-06-05] MEDS: MORPHINE SULFATE 15 MG TABLET.SA PO SCH ×2 (09:22→20:16)
[2017-06-05] MEDS: FLUTICASONE PROPIONATE 120 SPRAY INHALER NS SCH (09:22)
[2017-06-05] MEDS: LOSARTAN POTASSIUM 50 MG TABLET PO SCH (09:22)
[2017-06-05] MEDS: CALCIUM CARBONATE/VITAMIN D3 1 TAB TABLET PO SCH (09:22)
[2017-06-05] MEDS: CLONIDINE HCL 0.1 MG TABLET PO SCH ×2 (09:23→20:17)
[2017-06-05] MEDS: ARIPIPRAZOLE 1 MG PO SCH (09:23)
[2017-06-05] MEDS: lamoTRIgine 100 MG TABLET PO SCH (09:23)
[2017-06-05] MEDS: HYDROCHLOROTHIAZIDE 12.5 MG CAPSULE PO SCH (09:23)
[2017-06-05] MEDS: FUROSEMIDE 80 MG TABLET PO SCH (09:23)
[2017-06-05] MEDS: ASCORBIC ACID 500 MG TABLET PO SCH ×2 (09:24→20:17)
[2017-06-05] MEDS: Milnacipran Hcl [Savella] 100 MG PO SCH ×2 (09:24→20:12)
[2017-06-05] MEDS: CYANOCOBALAMIN 1,000 MCG TABLET PO SCH (09:24)
[2017-06-05] MEDS: MULTIVITAMINS 1 CAP CAPSULE PO SCH (09:24)
[2017-06-05] MEDS: CHOLECALCIFEROL 1,000 UNIT CAPSULE PO SCH (09:24)
[2017-06-05] MEDS: ENOXAPARIN SODIUM 40 MG/0.4 ML SYRG SC SCH (10:13)
--- NOTE | 2017-06-05 13:24 | PN ---
Subjective - Date and Time Seen Date: 06/05/17 Time: 13:19 Subjective Narrative: Subjective: Reports no concerns. She does report some increased somnolence with her pain meds. Was able to get to the end of the bed with therapy. Pain is well-controlled. Voiding without any complications. Tolerating by mouth intake. Denies any nausea or vomiting. Denies calf pain. Slept well. Physical exam: Alert and oriented to person, place and time Right lower extremity Extremity: Palpable dorsalis pedis pulse. Sensation grossly intact to light touch. Dressings pain and dry. Able to flex and extend ankle and toes. No excessive drainage. Calf and thigh are soft and nontender. Assessment: Postop day 1 status post right total knee arthroplasty. Plan: Due to the need for pain control, post-operative limited mobility, protection of the surgical site and joint, monitoring of the wound, and the management of chronic medical conditions, she requires continued inpatient care. She has not been able to ambulate any significant distance and thus would not be safe to discharge to home. Continue with physical and occupational therapy weightbearing as tolerated. Continue with anticoagulation. 24 hours postoperative prophylactic antibiotics. Pain control with goal to rely on oral medications. Continue bowel regimen. Will need 6 weeks with walker or assitive device to protect joint while ambulating during the recovery process. Discharge planning. Discontinued drain and Saleh catheter. Repeat hemogram and BMP in a.m. in order to monitor for postoperative anemia and electrolyte imbalance. Objective - Vitals Vitals: Last Vital Signs Temp 36.7 C 06/05/17 11:23 Pulse 89 06/05/17 11:23 Resp 18 06/05/17 11:23 BP 128/76 06/05/17 11:23 Pulse Ox 96 06/05/17 11:23 - Abnormal Lab Findings Abnormal Lab Findings: Abnormal Lab Results 06/05/17 06/05/17 Range/Units 05:40 05:40 WBC 11.2 H (4.0-10.5) K/mm3 BUN/Creatinine Ratio 23.1 H (9.0-21.6) Random Glucose 115 H (70-110) mg/dL Cauti Physician Documentation - Urinary Catheter Management 2-way Urethral Urethral Indwelling: No Date of Insertion: 06/04/17 Time of Insertion: 09:45 Date of Removal: 06/05/17 Time of Removal: 07:03 Assessment/Plan - Problems/Diagnosis (1) Status post total right knee replacement Problem: Acute (2) Constipation Problem: Chronic Qualifiers: Constipation type: unspecified constipation type Qualified Code(s): K59.00 - Constipation, unspecified (3) Gastroenteritis Problem: Chronic (4) Hypertension Problem: Chronic Qualifiers: Hypertension type: essential hypertension Qualified Code(s): I10 - Essential (primary) hypertension (5) Vertigo Problem: Chronic
[2017-06-05] MEDS: Zaleplon [Sonata] 10 MG PO SCH (20:12)
[2017-06-05] MEDS: ATORVASTATIN CALCIUM 40 MG TABLET PO SCH (20:16)
[2017-06-05] MEDS: SENNOSIDES/DOCUSATE SODIUM 1 TAB TABLET PO SCH (20:16)
[2017-06-05] MEDS: ALPRAZolam 1 MG TABLET PO SCH (20:16)
[2017-06-06] MEDS: KETOROLAC TROMETHAMINE 15 MG/ML VIAL IV SCH ×2 (01:18→06:47)
[2017-06-06 06:07] LABS: Hematocrit 39.4 % (37.0-47.0); Mean Cell Volume 85.1 fl (78-100); Mean Corpuscular Hemoglobin 28.1 pg (27-31); Mean Platelet Volume 9.1 fl (6.0-9.5); Platelet Count 335 K/mm3 (150-450); Red Blood Count 4.63 M/mm3 (4.2-5.4); Red Cell Distribution Width 13.7 % (11.5-14.0); White Blood Count 13.6 K/mm3 (4.0-10.5)
[2017-06-06 06:12] LABS: Anion Gap 8.9 mmol/L (6.8-13.8); BUN/Creatinine Ratio 25.9 (9.0-21.6); Calcium * 8.6 mg/dL (7.9-10.9); Estimated Creat Clear 60.5; Potassium 3.9 mmol/L (3.4-4.6)
[2017-06-06] MEDS: oxyCODONE HCL/ACETAMINOPHEN 1 TAB TABLET PO PRN (06:47)
[2017-06-06] MEDS: PANTOPRAZOLE SODIUM 40 MG TABLET.EC PO SCH (06:48)
[2017-06-06] MEDS: LEVOTHYROXINE SODIUM 100 MCG TABLET PO SCH (06:48)
--- NOTE | 2017-06-06 08:22 | PN ---
Subjective - Date and Time Seen Date: 06/06/17 Time: 08:18 Subjective Narrative: Doing well post op. Very little pain. Has walked in the ruiz. Hasn't done steps yet. Objective - Review of Systems Generalized/Overall Review: Reports: No Symptoms Reported EENTM: Reports: No Symptoms Reported Respiratory: Reports: No Symptoms Reported Cardiac: Reports: No Symptoms Reported Abdominal: Reports: No Symptoms Reported Genitourinary Symptoms: Reports: No Symptoms Reported Musculoskeletal Complaints: Reports: Joint Pain Neurological: Reports: No Symptoms Reported Skin: Reports: No Symptoms Reported Endocrine: Reports: No Symptoms Reported Misc: All systems neg except as marked - Vitals Vitals: Last Vital Signs Selected Entries 06/06/17 06:57 Temperature 37.5 C Temperature Temporal Artery Source Scan Pulse Rate 88 Respiratory 20 Rate Blood Pressure 161/78 Blood Pressure Sitting Position O2 Sat by Pulse 95 Oximetry Oxygen Delivery Room Air Method - Abnormal Lab Findings Abnormal Lab Findings: Abnormal Lab Results 06/06/17 06/06/17 Range/Units 05:57 05:57 WBC 13.6 H D (4.0-10.5) K/mm3 Carbon Dioxide 33.0 H (24-32.6) mmol/L BUN/Creatinine Ratio 25.9 H (9.0-21.6) - Exam Constitutional: Present: Alert, Oriented x3, Cooperative, Well developed, Well nourished, No distress ENT Exam: Present: normal ENT inspection, hearing grossly normal Neck: Present: normal inspection Respiratory: Present: normal breath sounds, no respiratory distress Cardiovascular/Chest: Present: regular rate, rhythm, no murmur Abdomen: Present: Normal bowel sounds, soft, nontender, nondistended, no rebound tenderness, no hepatospenomegaly, no masses Extremity: Present: normal range of motion, non-tender, normal inspection, no pedal edema, other - right leg still wrapped Neurologic: Present: alert, oriented x 3 Appearance: Present: appropriate appearance, appropriate insight, neat, no memory impairment Eye contact: Present: cooperative, good eye contact, normal speech Thoughts: Present: normal thought pattern Cauti Physician Documentation - Urinary Catheter Management 2-way Urethral Urethral Indwelling: No Date of Insertion: 06/04/17 Time of Insertion: 09:45 Date of Removal: 06/05/17 Time of Removal: 07:03 Assessment/Plan Plan Narrative: follow protocol - Problems/Diagnosis (1) S/P right knee surgery Problem: Deleted
[2017-06-06] MEDS: ARIPIPRAZOLE 1 MG PO SCH (09:43)
[2017-06-06] MEDS: lamoTRIgine 100 MG TABLET PO SCH (09:44)
[2017-06-06] MEDS: LOSARTAN POTASSIUM 50 MG TABLET PO SCH (09:44)
[2017-06-06] MEDS: CLONIDINE HCL 0.1 MG TABLET PO SCH (09:44)
[2017-06-06] MEDS: CALCIUM CARBONATE/VITAMIN D3 1 TAB TABLET PO SCH (09:44)
[2017-06-06] MEDS: POTASSIUM CHLORIDE 10 MEQ TABLET.SA PO SCH (09:44)
[2017-06-06] MEDS: FUROSEMIDE 80 MG TABLET PO SCH (09:44)
[2017-06-06] MEDS: FLUTICASONE PROPIONATE 120 SPRAY INHALER NS SCH (09:44)
[2017-06-06] MEDS: CYANOCOBALAMIN 1,000 MCG TABLET PO SCH (09:45)
[2017-06-06] MEDS: MULTIVITAMINS 1 CAP CAPSULE PO SCH (09:45)
[2017-06-06] MEDS: Milnacipran Hcl [Savella] 100 MG PO SCH (09:45)
[2017-06-06] MEDS: CHOLECALCIFEROL 1,000 UNIT CAPSULE PO SCH (09:45)
[2017-06-06] MEDS: MORPHINE SULFATE 15 MG TABLET.SA PO SCH (09:45)
[2017-06-06] MEDS: ASCORBIC ACID 500 MG TABLET PO SCH (09:45)
[2017-06-06] MEDS: HYDROCHLOROTHIAZIDE 12.5 MG CAPSULE PO SCH (09:45)
[2017-06-06] MEDS: ENOXAPARIN SODIUM 40 MG/0.4 ML SYRG SC SCH (10:06)
[2017-06-06 10:41] VITALS: BP 156/95
--- NOTE | 2017-06-06 14:16 | DS ---
(1) Status post total right knee replacement Problem: Acute (2) Constipation Problem: Chronic Qualifiers: Constipation type: unspecified constipation type Qualified Code(s): K59.00 - Constipation, unspecified (3) Gastroenteritis Problem: Chronic (4) Hypertension Problem: Chronic Qualifiers: Hypertension type: essential hypertension Qualified Code(s): I10 - Essential (primary) hypertension (5) Vertigo Problem: Chronic (6) Asthma Problem: Chronic (7) Diabetes mellitus type 2 in obese Problem: Chronic (8) Fibromyalgia Problem: Chronic (9) Depression Problem: Chronic (10) Hyperlipidemia Problem: Chronic (11) Sleep apnea Problem: Chronic (12) PTSD (post-traumatic stress disorder) Problem: Chronic Description of Stay: Mrs. Burrell was admitted to the floor after undergoing right total knee arthroplasty. Tolerated this well. Was admitted to the floor postoperatively for 24 hours of IV antibiotics, pain control, medical comanagement, and occupational and physical therapy. OT and PT were consulted to assist with activities of daily living and ambulation. Was made weightbearing as tolerated with range of motion as tolerated. Pain was initially controlled with IV regimen. This was transitioned to oral once tolerating a by mouth intake. Was resumed on home diet and medications. Had a Saleh catheter inserted and the operating room which was discontinued on postoperative day 1. A drain was placed intraoperatively into the knee which was discontinued on postoperative day 1. Lovenox SCD and NATY hose were utilized for DVT prophylaxis. Vital signs remained stable to the hospital course. Serial labs were obtained which showed a final hemoglobin of 13.0 grams. BMP was reviewed and was stable. Physical examination throughout the hospital course showed an extremity that had sensation that was intact to light touch, palpable pulses, a benign wound, motor intact to the toes, ankle, and knee. Knee range of motion was approximately 0 degrees to 70 degrees. Once an oral pain regimen was tolerated and physical therapy goals were met, it was felt that they were stable for discharge to home. Instructions: Continue with weightbearing as tolerated and range of motion as tolerated. It is okay to shower and get the wound wet as long as there is no drainage from the wound. Do not bathe or soak the wound. If there is any drainage from the wound keep the wound clean and dry and cover with dry gauze and tape. Change every 2-3 days as needed if there is any drainage. Cover wound while showering if there is any drainage. Continue with physical therapy. Resume home diet. Report any fever over 101.5 Fahrenheit, uncontrolled pain, increased drainage, foul odor of drainage, new or increased calf pain or shortness of breath, or any other significant complaints. A 325mg dialy aspirin will be started after finishing anticoagulation if not allergic. Continue with NATY hose on the operative extremity until instructed otherwise. No driving until instructed otherwise. Follow up in approximately 10-14 days. Procedures Performed: see notes below List Procedures: Right total knee arthroplasty Discharge Disposition: Home self care Disposition: Home self-care Condition: Good Discharge Activity: Activity as tolerated, Weight bearing Discharge Diet: Consistent carbs Halfway Therapy: Physicial Therapy Referrals: Santiago Dougherty MD [Primary Care Provider] - Additional Patient Instructions (free text): [facility] HH and therapy at discharge. Follow-up in the office with Dr. Keller on 06/19/17 at 10:45am. Prescriptions (Any new or edited meds): Enoxaparin Sodium [Lovenox] 40 mg SC Q24H #7 disp.syrin Morphine Sulfate [Ms Contin] 15 mg PO Q12H #20 tablet.sa oxyCODONE HCL/ACETAMINOPHEN [Percocet 5 MG/325 MG] 1 tab PO Q4H PRN #60 tablet PRN Reason: Moderate Pain Complete Home Medications List: Complete Home Medication List: Budesonide/Formoterol Fumarate [Symbicort 160-4.5 Mcg Inhaler] 2 puff IH BID PRN 09/26/13 Esomeprazole Magnesium [Nexium] 40 mg PO DAILY 09/26/13 EPINEPHrine [Epipen] 0.3 mg IJ ONCE PRN 05/01/14 Clonidine HCl [Catapres] 0.1 mg PO BID #60 tab 06/23/15 Atorvastatin Calcium [Lipitor] 40 mg PO HS 01/12/16 Multivitamins [Multivitamin Arina] 1 cap PO DAILY 01/12/16 Calcium Carbonate/Vitamin D3 [Calcium 600-Vit D3 200 Tablet] 1 each PO DAILY Cholecalciferol [Vitamin D] 1,000 unit PO DAILY 09/25/16 Furosemide [Lasix] 80 mg PO DAILY 09/25/16 Losartan Potassium [Cozaar] 100 mg PO DAILY 09/25/16 Meclizine HCl [Antivert] 25 mg PO DAILY PRN 09/25/16 Milnacipran HCl [Savella] 100 mg PO BID 09/25/16 Diflunisal [Dolobid] 500 mg PO BID 02/03/17 lamoTRIgine [Lamictal] 150 mg PO DAILY 02/03/17 Alprazolam 2 mg PO DAILY PRN 05/23/17 Alprazolam 4 mg PO HS 05/23/17 Ascorbic Acid [Vitamin C] 1,000 mg PO BID 05/23/17 Cyanocobalamin [Vitamin B-12] 1,000 mcg PO DAILY 05/23/17 Fluticasone Propionate [Flonase] 2 spray NS DAILY 05/23/17 Ibuprofen [Motrin] 800 mg PO DAILY PRN 05/23/17 Levothyroxine Sodium [Synthroid] 200 mcg PO DAILY 05/23/17 Zaleplon [Sonata] 10 mg PO HS 05/23/17 Aripiprazole [Abilify] 1 mg PO DAILY 06/04/17 Hydrochlorothiazide 12.5 mg PO DAILY 06/04/17 Potassium Chloride [Klor-Con 10] 10 meq PO DAILY 06/04/17 Enoxaparin Sodium [Lovenox] 40 mg SC Q24H #7 disp.syrin 06/06/17 Morphine Sulfate [Ms Contin] 15 mg PO Q12H #20 tablet.sa 06/06/17 Sennosides/Docusate Sodium [Senokot-S] 2 tab PO HS tablet 06/06/17 oxyCODONE HCL/ACETAMINOPHEN [Percocet 5 MG/325 MG] 1 tab PO Q4H PRN #60 tablet 06/06/17 Amb Orders for Discharge: PT Evaluation and Treatment Facility: [facility], Location: Rehabilitation Services
[2017-06-06] MEDS ORDERED: DIFLUNISAL 500 MG PO SCH (21:00)
== END 2017-06-06 15:25 | disposition home health service (06) | DRG 470 ==
LOC: MS 06:43
PROVIDERS: ADMIT Orthopaedic Surgery; ATTEND Orthopaedic Surgery
PROC: 0SRC0J9 Replacement of Right Knee Joint with Synthetic Substitute, Cemented, Open Approach (ICD-10-PCS; principal; 2017-06-04 10:50)
DX: M17.0 Bilateral primary osteoarthritis of knee (principal); Z68.41 Body mass index [BMI] 40.0-44.9, adult; E11.9 Type 2 diabetes mellitus without complications; E78.5 Hyperlipidemia, unspecified; I10 Essential (primary) hypertension; J45.20 Mild intermittent asthma, uncomplicated; E66.01 Morbid (severe) obesity due to excess calories; K59.00 Constipation, unspecified

== ENCOUNTER 2018-04-03 06:29 | Inpatient (IN) | payer MEDICARE, OTHER ==
[~2018-04-03 06:29] MED LIST changes: -RINGER'S SOLUTION,LACTATED 1,000 ML IV PRN; +ceFAZolin SODIUM 1 GM VIAL IV PRN
[2018-04-03] MEDS: RINGER'S SOLUTION,LACTATED 1,000 ML IV PRN ×3 (07:22→09:08)
--- NOTE | 2018-04-03 07:23 | ANES ---
Anesthesia Pre Procedure Eval Vitals/Labs: Last Vital Signs Temp 37.1 C 04/03/18 06:39 Pulse 92 04/03/18 06:39 Resp 18 04/03/18 06:39 BP 164/93 H 04/03/18 06:39 Pulse Ox 95 04/03/18 06:39 HOME MEDICATIONS Esomeprazole Magnesium [Nexium] 40 mg PO DAILY 09/26/13 [Last Taken Unknown] EPINEPHrine [Epipen] 0.3 mg IJ ONCE PRN 05/01/14 [Last Taken Unknown] Multivitamins [Multivitamin Arina] 1 cap PO DAILY 01/12/16 [Last Taken Unknown] Calcium Carbonate/Vitamin D3 [Calcium 600-Vit D3 200 Tablet] 1 ea PO DAILY 09/25 [Last Taken Unknown] Cholecalciferol [Vitamin D] 1,000 unit PO DAILY 09/25/16 [Last Taken Unknown] Meclizine HCl [Antivert] 25 mg PO DAILY PRN 09/25/16 [Last Taken Unknown] Diflunisal [Dolobid] 500 mg PO BID 02/03/17 [Last Taken Unknown] lamoTRIgine [Lamictal] 150 mg PO DAILY 02/03/17 [Last Taken Unknown] Fluticasone Propionate [Flonase] 2 spray NS DAILY 05/23/17 [Last Taken 04/03/18 06:15] Aripiprazole [Abilify] 1 mg PO DAILY 06/04/17 [Last Taken Unknown] Hydrochlorothiazide 12.5 mg PO DAILY 06/04/17 [Last Taken Unknown] ascorbic acid (vitamin C) 1,000 mg tablet 1,000 mg PO DAILY tab 01/13/18 [Last Taken Unknown] compression stocking, knee high, regular length, small See Dose Instructions .ROUTE .MEDSUPPLY #12 ea 01/13/18 [Last Taken Unknown] duloxetine 60 mg capsule,delayed release 60 mg PO DAILY 01/13/18 [Last Taken Unknown] trazodone 100 mg tablet 100 mg PO HS PRN tab 01/13/18 [Last Taken Unknown] levothyroxine 200 mcg tablet 300 mcg PO DAILY #30 tab 03/20/18 [Last Taken Unknown] albuterol sulfate HFA 90 mcg/actuation aerosol inhaler 2 puff IH Q6H PRN #8.5 g 03/22/18 [Last Taken 04/03/18 06:15] alprazolam 0.5 mg tablet See Label Instructions PO .COMPLEX #90 tab 03/26/18 [ Last Taken Unknown] losartan 100 mg tablet 100 mg PO DAILY #30 tab 04/02/18 [Last Taken 04/03/18 06: 15] Allergies/Adverse Reactions: Allergies Allergy/AdvReac Type Severity Reaction Status Date / Time meloxicam [From Mobic] Allergy Intermediate swelling Verified 04/03/18 06:52 in extremites benzoin Allergy Mild ITCH, Verified 04/03/18 06:52 RASH, BURNING Penicillins Allergy Mild Hives Verified 04/03/18 06:52 tizanidine [Tizanidine] AdvReac Mild dizzy, dry Verified 04/03/18 06:52 mouth oxycodone AdvReac "knocks Verified 04/03/18 06:52 her out" - Planned Procedure Planned Procedure: Left Arthroplasty Total Knee Medication List Reviewed:: Yes Allergies Verified: Yes Medical History (Last Reviewed 04/03/18 @ 07:21 by Joel Arredondo CRNA) Abnormal Pap smear of cervix Onset Date: ~1989 Allergic rhinitis Onset Date: Unknown Asthma Onset Date: ~08/2011 Chronic pain syndrome Onset Date: ~04/2014 Chronic venous insufficiency Onset Date: ~11/2016 Constipation Onset Date: ~09/2015 Deafness Onset Date: Unknown Depression Onset Date: Unknown Diabetes mellitus Onset Date: Unknown Edema Onset Date: ~11/2016 Fibromyalgia Onset Date: ~09/2015 Gastroesophageal reflux Onset Date: Unknown Hepatomegaly Onset Date: ~09/2012 Hyperlipidemia Onset Date: Unknown Hypertension, essential Onset Date: Unknown Insomnia Onset Date: ~11/2016 Interstitial cystitis Onset Date: Unknown Malignant neoplasm of thyroid gland Onset Date: ~02/2010 Meniere disease Onset Date: ~03/2011 Meningioma Onset Date: ~09/2012 Menometrorrhagia Onset Date: Unknown Mild concentric left ventricular hypertrophy (LVH) Onset Date: ~05/2017 Morbid obesity Onset Date: ~09/2011 Neuropathy Onset Date: ~09/2011 SHAHLA (obstructive sleep apnea) Onset Date: ~08/2011 Ovarian cyst Onset Date: Unknown PTSD (post-traumatic stress disorder) Onset Date: Unknown Rhinitis, chronic Onset Date: ~09/2015 S/P wrist surgery Onset Date: ~2012 Tinnitus Onset Date: Unknown Vertigo Onset Date: Unknown Vitamin B12 deficiency Onset Date: Unknown Previous back surgery Onset Date: ~2006 Surgical History (Last Reviewed 04/03/18 @ 07:22 by Joel Arredondo CRNA) Colonoscopy planned Onset Date: ~04/2014 De Quervain's disease (tenosynovitis) Onset Date: ~03/2015 H/O arthroscopy of shoulder Onset Date: ~09/2016 H/O brain surgery Onset Date: ~02/2016 H/O cervical biopsy Onset Date: Unknown H/O laparoscopy Onset Date: ~2010 H/O sinus surgery Onset Date: ~2003 H/O thyroidectomy Onset Date: ~2009 H/O tubal ligation Onset Date: ~1991 History of arthroscopic knee surgery Onset Date: ~05/2014 History of carpal tunnel release Onset Date: ~2003 History of cholecystectomy Onset Date: ~2009 History of endometrial biopsy Onset Date: ~09/2010 History of esophagogastroduodenoscopy Onset Date: ~1995 History of incision and drainage Onset Date: ~2001 History of salpingo-oophorectomy Onset Date: ~2010 History of total knee arthroplasty Onset Date: ~05/2017 Hx of nasal septoplasty Onset Date: ~2004 S/P cervical spinal fusion Onset Date: ~07/2005 S/P epidural steroid injection Onset Date: ~2007 S/P right knee arthroscopy Onset Date: Unknown S/P rotator cuff repair Onset Date: ~09/2016 Tonsillectomy planned Onset Date: ~1967 Family History (Last Reviewed 04/03/18 @ 07:22 by Joel Arredondo CRNA) Brother Hypertension Gout Daughter Hypertension Hypothyroidism Father Hypertension Heart disease Myocardial infarction Mother Hypertension Alzheimers disease TIA (transient ischemic attack) Gallbladder disease - Family Anesthesia History Family History:: no untoward family reactions to anesthesia - Airway/Neck/Teeth Teeth Condition: Intact Denture Type: None Neck Exam: limited range of motion Mallampatti Score: 3 Thyromental (T-M) distance: > 6 cm Mandibulo Hyoid distance: > 3 cm - Respiratory Respiratory: lungs clear, no respiratory distress Smoking Status: Former smoker Sleep Apnea by current assessment: Yes Discussed Risks/Treatment of SHAHLA: Yes - Cardiovascular Patient History - Cardiac/Respiratory: Hypertension Tolerates Activity: Fair Heart Sounds: S1 & S2, Regular - Anesthesia Assessment and Plan ASA Class: PS, III Anesthesia Type Plan: Spinal - lt adductor canal block for postop analgesia Planned difficult intubation/equipment available: No
[2018-04-03] MEDS ORDERED: MORPHINE SULFATE 4 MG/ML SYRG IV PRN (09:43)
[2018-04-03] MEDS ORDERED: ONDANSETRON HCL/PF 2 MG/ML VIAL IV PRN (09:43)
[2018-04-03] MEDS ORDERED: MAGNESIUM HYDROXIDE 30 ML UDC PO PRN (09:43)
[2018-04-03] MEDS ORDERED: ZOLPIDEM TARTRATE 5 MG TABLET PO PRN (09:43)
[2018-04-03] MEDS ORDERED: ACETAMINOPHEN 500 MG TABLET PO PRN (09:43)
[2018-04-03] MEDS ORDERED: diphenhydrAMINE HCL 50 MG/ML VIAL IV PRN (09:43)
[2018-04-03] MEDS ORDERED: RINGER'S SOLUTION,LACTATED 1,000 ML IV PRN (09:43)
[2018-04-03] MEDS ORDERED: MAG HYDROX/ALUMINUM HYD/SIMETH 30 ML UDC PO PRN (09:43)
[2018-04-03] MEDS ORDERED: ALBUTEROL SULFATE 2.5 MG/0.5 ML VIAL.NEB IH PRN ×2 (09:47→10:00)
[2018-04-03] MEDS ORDERED: MECLIZINE HCL 25 MG TABLET PO PRN (09:47)
[2018-04-03] MEDS ORDERED: traZODone HCL 50 MG TABLET PO PRN (09:47)
--- NOTE | 2018-04-03 09:56 | OR ---
Operative Report - Dictated Report Narrative: Date: 04/03/2018 Preoperative diagnosis: Left Knee degenerative joint disease. Postoperative diagnosis: Left Knee degenerative joint disease. Procedure: Left Total knee arthroplasty. Surgeon: Yasmany Keller M.D. Certified Solid Waste Facility Operator: Gerry Carbone PA-C Anesthesia: Spinal with regional block and local periarticular joint injection. Complications: None Specimens: Bone for disposal. Estimated blood loss: Minimal. Tourniquet time: 85 Minutes at 350 millimeters of mercury. Retained implants: Depuy Attune size 4 left lugged cemented posterior stabilized femoral component. Size 4 fixed-bearing cemented tibial platform. 4 by 5 millimeter posterior stabilized cross-linked tibial insert. 35 millimeter medialized patella button. Indications: Mrs. Burrell is a 53-year-old female who has had long-standing left knee pain and arthrosis. This patient was followed in my clinic for period of time with significant complaints of left knee pain consistent with arthritic changes. She had failed conservative measures including, but not limited to, activity modification, passage of time, medications, and other conservative measures. Patient wished to proceed with surgical treatment. The risks, benefits, and alternatives were discussed in clinic. The risks of , blood clots, bleeding, infection, nerve/tendon blood vessel/ injury, malposition of components, intraoperative fracture, postoperative limited range of motion, persistent pain, failure of components, and need for additional procedures. Patient wished to proceed consent was obtained after answering all questions. Procedure: After marking the correct extremity on the floor, the patient was taken to the operating room. A timeout was performed. IV antibiotics consisting of Ancef were administered prior to the procedure. A regional followed by spinal anesthetic was induced by anesthesia, per my request, on the operative table with all bony prominences well-padded. Saleh catheter was placed, and a bump was placed under the operative side buttock. SCDs and NATY hose were utilized on the nonoperative leg. A well-padded tourniquet was applied to the operative thigh. The operative leg was then pre-scrubbed with alcohol prepped, and draped in a standard sterile fashion. After exsanguinating the extremity with an Esmarch bandage, the tourniquet was inflated. After marking out the anterior knee for standard incision centered over the patella, the skin was incised and dissected down to the joint retinaculum. The joint retinaculum was marked out as well as the horizontal axis of the patella, and a standard medial parapatellar arthrotomy was then made. The most proximal aspect of the quadriceps tendon and the patella tendon insertion were protected from release. A partial synovectomy was performed as well as a resection of the infrapatellar fat pad. The distal femoral fat pad proximal to the trochlea was also resected using cautery. The soft tissues were elevated off the medial aspect of the proximal tibia using a Carrasco elevator ensuring that we did not transect the medial collateral ligament. Upon initial evaluation range of motion was approximately 0 degrees to 120 degrees of flexion. There were signs of advanced arthrosis in the medial and patellofemoral joint spaces. There were large marginal osteophytes which were removed with a rongeur. The knee was hyperflexed and the patella was tucked laterally. Protecting the surrounding soft tissues with Homans, an entry drill was placed down the femoral canal using Whitesides line for guidance into the entry point. The intramedullary femoral alignment adwoa was utilized in order to cut the distal femur in 5 degrees of valgus resecting 10 millimeters of bone. Next the distal femur was sized to a size 4. A posterior referencing guide was utilized to place the distal femoral cutting block in 3 degrees of external rotation. This was pinned into place. The rotation was confirmed both visually and based on anatomic landmarks. The 4 in 1 cutting jig of the appropriate size was utilized in order to make all bony cuts. The angle wing was used to ensure no notching. Retractors were utilized in order to protect surrounding soft tissues. This cut did not result in any excessive notching. We then cut the box centered over the distal femur. This allowed for resection of the anterior and posterior cruciate ligaments. I then turned my attention to the preparation of the tibia. Using an extra medullary tibial alignment adwoa, 4 millimeters of bone was resected off the medial articular surface. This was made perpendicular to the mechanical axis of the joint with the alignment adwoa centered over the ankle mortise. The alignment adwoa was checked and was noted to be parallel to the mechanical axis, centered over the medial one third of the tibial tubercle, paralleling the anterior surface of the tibia. We then turned our attention to the remaining meniscus and soft tissues. These were removed while protecting the surrounding ligaments and soft tissues. The marginal osteophytes off the anterior, posterior, medial, lateral aspects of the femur and tibia were removed. The tibia was sized out to a size 4. Next the tibia was drilled and punched in an externally rotated position. Next the trial femur and a series of tibial inserts were utilized in order to allow for full extension and maximal flexion. It was found that a 5 millimeter insert gave the best range of motion and stability at multiple flexion points as well as at full extension there was less than 2 mm of gapping both medially and laterally. There is minimal anterior translation with the knee at 90 degrees of flexion and no signs of being able to dislocate the knee. The patella was then prepared. The initial thickness was 22 millimeters. This was reamed down to 12 millimeters parallel to the anterior surface of the patella. It was sized out to a size 35 medialized patella button. This was then drilled and trialed. Without any medial restraint the patella tracked appropriately and did not sublux or dislocate. At this point, it was felt these were the appropriate sized implants, and all trials were removed. The standard periarticular joint injection consisting of ropivacaine, Toradol, and epinephrine were injected into the periarticular joint tissues. The bony surfaces were thoroughly irrigated with a pulsatile- suction saline irrigation device. A bone plug from the prior resected anterior chamfer cut was placed into the drill hole at the distal femur. The bony surfaces were then dried in preparation for placement of the implants. The cement was vacuum mixed per the customer support assistant's instructions. The cement was placed on the dry bony surfaces and posterior aspect of the implants. The implants were impacted into place, removing all extruded cement. At this point anesthesia administered tranexamic acid per protocol intravenously. The knee was placed in extension with axial loading with the trial insert while the cement cured. Once the cement cured, all remaining extruded cement was removed. The knee was placed through a range of motion with the trial insert to ensure appropriate range of motion and stability. Final range of motion was approximately 0 to 120 degrees. The knee was again thoroughly irrigated with pulsatile saline lavage. The final polyethylene insert was then impacted into place ensuring no retained soft tissues. The remaining periarticular joint injection was injected. A medium Hemovac drain was placed exiting superior laterally. The knee was then placed over a triangle and the arthrotomy was closed with interrupted #1 Vicryl after thoroughly irrigating the joint. The deep and subcutaneous tissues were closed with interrupted 0 and 3-0 Vicryl respectively. Skin was closed with a running subcutaneous 3-0 Monocryl and diana. Xeroform, 4 x 4's, Sof-Rol, and a full leg Collin wrap were applied. All sponge, needle, blade, and instrument counts were correct prior to closing the wounds. Postoperative condition: The patient was awoken and transferred to the postanesthesia care unit in stable condition. Plan is to be admitted to the inpatient medical/surgical floor postoperatively for 24 hours of IV antibiotics , physical therapy, occupational therapy, and medical comanagement. Patient will be weightbearing as tolerated with range of motion as tolerated. DVT prophylaxis will be with SCDs, NATY hose, and pharmacological anticoagulation. Anticipated hospital stay is approximately 1-3 days.
[2018-04-03] MEDS ORDERED: ALPRAZolam 0.5 MG TABLET PO SCH (10:00)
--- NOTE | 2018-04-03 10:07 | ANES ---
Post Anesthesia Discharge - Transfer of Care Transfer of Care handoff given to nurse: Yes - Discharge from PACU Discharge from PACU when meets criteria: Yes
--- NOTE | 2018-04-03 10:11 | ANES ---
Anesthesia Procedure Note Procedure Note: ANESTHESIA PROCEDURE NOTE Date of procedure: 04/03/2018 Time of procedure:[]. Performed by: Darrell Arredondo CRNA Elevator Repairer: [] Kelsey Snell RN . Preprocedure diagnosis: []. Left knee DJD. Desire for postoperative analgesia. Post procedure diagnosis: Same. Procedure:[] Ultrasound-guided left adductor canal block. Indications: []. Postoperative analgesia. Findings: [] Patient brought to operating room #4 and placed in a supine position. Patient was given IV sedation. Patient's left inner thigh area was prepped with ChloraPrep. Ultrasound was utilized to identify adductor canal. 1 mL of 1% Xylocaine was injected into the skin and subcutaneous tissue at the target site. A 20-gauge 4 inch Stimuplex regional block needle was advanced under ultrasound guidance until tip of needle was identified in adductor canal. A total of 20 mL of 0.25% Marcaine with epinephrine 1 200,000 was injected with adequate spread of local anesthesia noted. Regional block needle was removed intact. EBL: Minimal. Fluids: N/A. Specimen: N/A. Post procedure condition: The patient tolerated the procedure well. No complications were noted. Thank you for this consultation Darrell Arredondo CRNA
[2018-04-03] MEDS: KETOROLAC TROMETHAMINE 15 MG/ML VIAL IV SCH ×3 (10:53→20:57)
--- NOTE | 2018-04-03 11:10 | ANES ---
Post Anesthesia Assessment - Vital Signs Vitals: Last Vital Signs Temp 36.4 C 04/03/18 10:15 Pulse 79 04/03/18 10:15 Resp 17 04/03/18 10:15 BP 118/86 04/03/18 10:15 Pulse Ox 97 04/03/18 10:15 Airway Patency: Normal - Mental Status Level Of Consciousness: Awake - Pain Level Pain Score: 0 - N/V Assessment Nausea/Vomiting Presence: None Dehydration:: No
[2018-04-03] MEDS: ceFAZolin SODIUM 1 GM in DEXTROSE 5 % IN WATER 100 ML IV SCH ×6 (13:20→22:50)
[2018-04-03] MEDS: MORPHINE SULFATE 10 MG/0.5 ML SYRINGE PO PRN ×2 (15:43→18:25)
[2018-04-03] MEDS: DIFLUNISAL 500 MG PO SCH (20:57)
[2018-04-03] MEDS: MORPHINE SULFATE 15 MG TABLET.SA PO SCH (20:57)
[2018-04-03] MEDS ORDERED: SENNOSIDES/DOCUSATE SODIUM 1 TAB TABLET PO SCH (21:00)
[2018-04-03] MEDS ORDERED: ALPRAZolam 1 MG TABLET PO SCH (21:00)
[2018-04-04] MEDS: MORPHINE SULFATE 10 MG/0.5 ML SYRINGE PO PRN ×3 (02:24→12:13)
[2018-04-04] MEDS: KETOROLAC TROMETHAMINE 15 MG/ML VIAL IV SCH ×2 (02:48→10:37)
[2018-04-04 05:13] LABS: Hematocrit 37.2 % (37.0-47.0); Hemoglobin 11.9 gm/dL (12.5-16.0); Mean Cell Volume 89.6 fl (78-100); Mean Corpuscular Hemoglobin 28.7 pg (27-31); Platelet Count 265 K/mm3 (150-450); Red Blood Count 4.15 M/mm3 (4.2-5.4); Red Cell Distribution Width 14.7 % (11.5-14.0)
[2018-04-04 05:24] LABS: Anion Gap 5.8 mmol/L (6.8-13.8); BUN/Creatinine Ratio 17.9 (9.0-21.6); Calcium * 7.8 mg/dL (7.9-10.9); Carbon Dioxide 34.6 mmol/L (24-32.6); Estimated Creat Clear 64.6; Potassium 4.4 mmol/L (3.4-4.6)
[2018-04-04] MEDS ORDERED: LEVOTHYROXINE SODIUM 150 MCG TABLET PO SCH (07:00)
[2018-04-04] MEDS ORDERED: PANTOPRAZOLE SODIUM 40 MG TABLET.EC PO SCH (07:00)
[2018-04-04] MEDS ORDERED: ENOXAPARIN SODIUM 40 MG/0.4 ML SYRG SC SCH (08:43)
[2018-04-04] MEDS ORDERED: lamoTRIgine 100 MG TABLET PO SCH (09:00)
[2018-04-04] MEDS ORDERED: ASCORBIC ACID 500 MG TABLET PO SCH (09:00)
[2018-04-04] MEDS ORDERED: ALPRAZolam 0.25 MG TABLET PO SCH (09:00)
[2018-04-04] MEDS ORDERED: HYDROCHLOROTHIAZIDE 12.5 MG CAPSULE PO SCH (09:00)
[2018-04-04] MEDS ORDERED: CHOLECALCIFEROL 1,000 UNIT CAPSULE PO SCH (09:00)
[2018-04-04] MEDS ORDERED: ARIPIPRAZOLE 1 MG PO SCH (09:00)
[2018-04-04] MEDS ORDERED: MULTIVITAMINS 1 CAP CAPSULE PO SCH (09:00)
[2018-04-04] MEDS ORDERED: DULoxetine HCL 30 MG CAPSULE.SA PO SCH (09:00)
[2018-04-04] MEDS ORDERED: CALCIUM CARBONATE/VITAMIN D3 1 TAB TABLET PO SCH (09:00)
[2018-04-04] MEDS ORDERED: FLUTICASONE PROPIONATE 120 SPRAY INHALER NS SCH (09:00)
[2018-04-04] MEDS: MORPHINE SULFATE 15 MG TABLET.SA PO SCH (09:12)
[2018-04-04] MEDS: DIFLUNISAL 500 MG PO SCH (09:13)
--- NOTE | 2018-04-04 14:11 | DS ---
(1) Total knee replacement status Problem: Acute (2) Acute blood loss anemia Problem: Acute (3) SHAHLA (obstructive sleep apnea) Problem: Chronic (4) Adult BMI 45.0-49.9 kg/sq m Problem: Chronic (5) Acquired hypothyroidism Problem: Chronic (6) Hyperlipidemia type II Problem: Chronic (7) Osteoarthritis of left knee Problem: Chronic Qualifiers: (8) Hypertension Problem: Chronic (9) Asthma Problem: Chronic Qualifiers: (10) Diabetes mellitus type 2 in obese Problem: Chronic (11) Depression Problem: Chronic (12) Hyperlipidemia Problem: Chronic (13) Sleep apnea Problem: Chronic (14) PTSD (post-traumatic stress disorder) Problem: Chronic Description of Stay: Mrs. Burrell was admitted to the floor after undergoing left total knee arthroplasty. Tolerated this well. Was admitted to the floor postoperatively for 24 hours of IV antibiotics, pain control, medical comanagement, and occupational and physical therapy. OT and PT were consulted to assist with activities of daily living and ambulation. Was made weightbearing as tolerated with range of motion as tolerated. Pain was initially controlled with IV regimen. This was transitioned to oral once tolerating a by mouth intake. Was resumed on home diet and medications. Had a Saleh catheter inserted and the operating room which was discontinued on postoperative day 1. A drain was placed intraoperatively into the knee which was discontinued on postoperative day 1. Lovenox SCD and NATY hose were utilized for DVT prophylaxis. Vital signs remained stable to the hospital course. Serial labs were obtained which showed a final hemoglobin of 11.9 grams. BMP was reviewed and was stable. Physical examination throughout the hospital course showed an extremity that had sensation that was intact to light touch, palpable pulses, a benign wound, motor intact to the toes, ankle, and knee. Knee range of motion was approximately 5 degrees to 70 degrees. Once an oral pain regimen was tolerated and physical therapy goals were met, it was felt that they were stable for discharge to home. Instructions: Continue with weightbearing as tolerated and range of motion as tolerated. Keep incision clean and dry If you note any drainage or for comfort you can cover with dry gauze and tape. Change every 2-3 days as needed. Continue with physical therapy. Resume home diet. Report any fever over 101.5 Fahrenheit, uncontrolled pain, increased drainage, foul odor of drainage, new or increased calf pain or shortness of breath, or any other significant complaints. A 325mg dialy aspirin will be started after finishing anticoagulation if not allergic. Continue with NATY hose on the operative extremity until instructed otherwise. No driving until instructed otherwise. Follow up in approximately 10-14 days. Procedures Performed: see notes below List Procedures: Left total knee arthroplasty Results and Findings: Lab Pending Results 04/04/18 05:05: WBC 12.0 H, RBC 4.15 L, Hgb 11.9 L, Hct 37.2, MCV 89.6, MCH 28.7 , MCHC 32.0, RDW 14.7 H, Plt Count 265, MPV 9.0 04/04/18 05:05: Sodium 140, Plasma Sodium 140, Potassium 4.4, Chloride 104, Carbon Dioxide 34.6 H, Anion Gap 5.8 L, BUN 14, Creatinine 0.78, Est GFR (Non- Af Amer) 82 D, BUN/Creatinine Ratio 17.9, Random Glucose 126 H, Calcium 7.8 L Discharge Location: Home Disposition: Home Health Service Condition: Good Face to Face Encounter completed per [facility] Guidelines: Yes Discharge Activity: Activity as tolerated, Weight bearing, Other - with walker Discharge Diet: Consistent carbs, Low salt, Low fat/chol Referrals: Park Bean ARNP [Family Provider] - Additional Patient Instructions (free text): [facility] at discharge, please fax and call discharge information to them. Follow up Orthopedic appointment on 04/18/18 at 10:45am. Prescriptions (Any new or edited meds): Enoxaparin Sodium [Lovenox] 40 mg SC Q24H #7 disp.syrin Morphine Sulfate [Morphine Sulfate Conc. Oral Solution] 10 mg PO Q2H PRN #90 tab PRN Reason: Moderate Pain (Pain Scale 4-6) Morphine Sulfate [Ms Contin] 15 mg PO Q12H #20 tablet.sa Sennosides/Docusate Sodium [Senokot-S] 2 tab PO HS #30 tab Complete Home Medications List: Complete Home Medication List: Esomeprazole Magnesium [Nexium] 40 mg PO DAILY 09/26/13 EPINEPHrine [Epipen] 0.3 mg IJ ONCE PRN 05/01/14 Multivitamins [Multivitamin Arina] 1 cap PO DAILY 01/12/16 Calcium Carbonate/Vitamin D3 [Calcium 600-Vit D3 200 Tablet] 1 ea PO DAILY 09/25 Cholecalciferol [Vitamin D] 1,000 unit PO DAILY 09/25/16 Meclizine HCl [Antivert] 25 mg PO DAILY PRN 09/25/16 Diflunisal [Dolobid] 500 mg PO BID 02/03/17 lamoTRIgine [Lamictal] 150 mg PO DAILY 02/03/17 Fluticasone Propionate [Flonase] 2 spray NS DAILY 05/23/17 Aripiprazole [Abilify] 1 mg PO DAILY 06/04/17 Hydrochlorothiazide 12.5 mg PO DAILY 06/04/17 ascorbic acid (vitamin C) 1,000 mg tablet 1,000 mg PO DAILY tab 01/13/18 compression stocking, knee high, regular length, small See Dose Instructions .ROUTE .MEDSUPPLY #12 ea 01/13/18 duloxetine 60 mg capsule,delayed release 60 mg PO DAILY 01/13/18 trazodone 100 mg tablet 100 mg PO HS PRN tab 01/13/18 levothyroxine 200 mcg tablet 300 mcg PO DAILY #30 tab 03/20/18 albuterol sulfate HFA 90 mcg/actuation aerosol inhaler 2 puff IH Q6H PRN #8.5 g 03/22/18 alprazolam 0.5 mg tablet See Label Instructions PO .COMPLEX #90 tab 03/26/18 losartan 100 mg tablet 100 mg PO DAILY #30 tab 04/03/18 Enoxaparin Sodium [Lovenox] 40 mg SC Q24H #7 disp.syrin 04/04/18 Morphine Sulfate [Morphine Sulfate Conc. Oral Solution] 10 mg PO Q2H PRN #90 tab 04/04/18 Morphine Sulfate [Ms Contin] 15 mg PO Q12H #20 tablet.sa 04/04/18 Sennosides/Docusate Sodium [Senokot-S] 2 tab PO HS #30 tab 04/04/18
[2018-04-04 17:52] VITALS: BP 176/98
== END 2018-04-04 18:20 | disposition home health service (06) | DRG 470 ==
LOC: MS 06:29 → EDSTATUS 08:00
PROVIDERS: ADMIT Orthopaedic Surgery; ATTEND Orthopaedic Surgery
CPT/HCPCS: 36415; 73560; 80048; 85027; 97110; 97116; 97161; 97165; 97535

== ENCOUNTER 2018-05-31 13:07 | Inpatient (IN) | payer MEDICARE, OTHER ==
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
[2018-05-31 14:14] LABS: Hematocrit 38.4 % (37.0-47.0); Hemoglobin 12.7 gm/dL (12.5-16.0); Mean Cell Volume 84.8 fl (78-100); Mean Corpuscular Hgb Conc 33.1 g/dl (32-36); Mean Platelet Volume 9.7 fl (8-12.5); Neutrophil # 16.5 K/mm3 (1.3-6.0); Neutrophil % 83.7 % (42-75.0); Platelet Count 361 K/mm3 (150-450); Red Blood Count 4.53 M/mm3 (4.2-5.4); Red Cell Distribution Width 12.6 % (11.5-14.0); White Blood Count 19.7 K/mm3 (4.0-10.5)
[2018-05-31 14:29] LABS: Albumin * 2.4 gm/dl (3.4-5.0); Anion Gap 10.8 mmol/L (6.8-13.8); BUN/Creatinine Ratio 15.8 (9.0-21.6); Calcium * 8.8 mg/dL (7.9-10.9); Carbon Dioxide 31.5 mmol/L (24-32.6); Potassium 3.3 mmol/L (3.4-4.6); Total Protein 7.8 gm/dL (6.2-8.2)
[2018-05-31 14:30] LABS: Bilirubin, Total 0.4 mg/dL (0.0-1.1); Ca. Corrected For Albumin 9.8 mg/dL (8.4-10.2)
[2018-05-31 15:20] LABS: CRP 34.8 mg/dL (0.0-0.9)
[2018-05-31] MEDS ORDERED: VANCOMYCIN HCL 1 GM in DEXTROSE 5 % IN WATER 250 ML IV ONE ×2 (16:48)
--- NOTE | 2018-05-31 17:02 | ANES ---
Anesthesia Pre Procedure Eval Vitals/Labs: Last Vital Signs Temp 36.8 C 05/31/18 13:32 Pulse 95 05/31/18 13:32 Resp 14 05/31/18 13:32 BP 117/63 05/31/18 13:32 Pulse Ox 95 05/31/18 13:32 HOME MEDICATIONS Esomeprazole Magnesium [Nexium] 40 mg PO DAILY 09/26/13 [Last Taken Unknown] EPINEPHrine [Epipen] 0.3 mg IJ ONCE PRN 05/01/14 [Last Taken Unknown] Calcium Carbonate/Vitamin D3 [Calcium 600-Vit D3 200 Tablet] 1 ea PO DAILY 09/25/16 [Last Taken Unknown] Cholecalciferol [Vitamin D] 1,000 unit PO DAILY 09/25/16 [Last Taken Unknown] Meclizine HCl [Antivert] 25 mg PO DAILY PRN 09/25/16 [Last Taken Unknown] Fluticasone Propionate [Flonase] 2 spray NS DAILY 05/23/17 [Last Taken 04/03/18 06:15] ascorbic acid (vitamin C) 1,000 mg tablet 1,000 mg PO DAILY tab 01/13/18 [Last Taken Unknown] levothyroxine 200 mcg tablet 300 mcg PO DAILY #30 tab 03/20/18 [Last Taken Unknown] albuterol sulfate HFA 90 mcg/actuation aerosol inhaler 2 puff IH Q6H PRN #8.5 g 03/22/18 [Last Taken 04/03/18 06:15] losartan 100 mg tablet 100 mg PO DAILY #30 tab 04/03/18 [Last Taken Unknown] diflunisal 500 mg tablet 500 mg PO BID #60 tab 04/05/18 [Last Taken Unknown] hydrochlorothiazide 12.5 mg tablet 12.5 mg PO DAILY #30 tab 04/05/18 [Last Taken Unknown] aripiprazole 30 mg tablet 15 mg PO DAILY #15 tab 04/15/18 [Last Taken Unknown] lamotrigine 150 mg tablet 150 mg PO BID #60 tab 04/15/18 [Last Taken Unknown] trazodone 100 mg tablet 200 mg PO HS PRN #60 tab 04/15/18 [Last Taken Unknown] alprazolam 2 mg tablet 2 mg PO HS #45 tab 04/30/18 [Last Taken Unknown] morphine 15 mg immediate release tablet 15 mg PO .COMPLEX PRN #40 tab 05/14/18 [Last Taken Unknown] cefdinir 300 mg capsule 300 mg PO Q12H 7 Days #14 cap 05/29/18 [Last Taken Unknown] ondansetron 4 mg disintegrating tablet 4 mg PO TID PRN #9 tab 05/29/18 [Last Taken Unknown] Allergies/Adverse Reactions: Allergies Allergy/AdvReac Type Severity Reaction Status Date / Time meloxicam [From Mobic] Allergy Intermediate swelling Verified 05/29/18 16:57 in extremites benzoin Allergy Mild ITCH, Verified 05/29/18 16:57 RASH, BURNING Penicillins Allergy Mild Hives Verified 05/29/18 16:57 tizanidine [Tizanidine] AdvReac Mild dizzy, dry Verified 05/29/18 16:57 mouth oxycodone AdvReac "knocks Verified 05/29/18 16:57 her out" - Planned Procedure Planned Procedure: I&D groin Medication List Reviewed:: Yes Allergies Verified: Yes Medical History (Last Reviewed 05/31/18 @ 17:00 by Lalit Rhodes CRNA) Osteoarthritis (Chronic) Acute blood loss anemia (Acute) Bipolar affective disorder, current episode depressed (Chronic) Borderline personality disorder (Chronic) SHAHLA (obstructive sleep apnea) (Chronic) Adult BMI 45.0-49.9 kg/sq m (Chronic) Acquired hypothyroidism (Chronic) Hyperlipidemia type II (Chronic) Type IIa Osteoarthritis of left knee (Chronic) Osteoarthritis of knee (Chronic) Gastroenteritis (Chronic) Cough (Acute) Otitis media (Acute) Hypertension (Chronic) Vertigo (Chronic) Constipation (Chronic) Cellulitis (Acute) Medication adverse effect (Acute) Right shoulder injury (Acute) Sinusitis (Acute) Asthma (Chronic) Diabetes mellitus type 2 in obese (Chronic) Fibromyalgia (Chronic) Depression (Chronic) Hyperlipidemia (Chronic) Sleep apnea (Chronic) PTSD (post-traumatic stress disorder) (Chronic) Abnormal Pap smear of cervix Onset Date: ~1989 Allergic rhinitis Onset Date: Unknown Asthma Onset Date: ~08/2011 Intermittent Chronic pain syndrome Onset Date: ~04/2014 Chronic venous insufficiency Onset Date: ~11/2016 Constipation Onset Date: ~09/2015 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%, 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% Depression Onset Date: Unknown Diabetes mellitus Onset Date: Unknown Edema Onset Date: ~11/2016 Fibromyalgia Onset Date: ~09/2015 Gastroesophageal reflux Onset Date: Unknown Hepatomegaly Onset Date: ~09/2012 Hyperlipidemia Onset Date: Unknown Hypertension, essential Onset Date: Unknown Insomnia Onset Date: ~11/2016 Interstitial cystitis Onset Date: Unknown Malignant neoplasm of thyroid gland Onset Date: ~02/2010 Meniere disease Onset Date: ~03/2011 Meningioma Onset Date: ~09/2012 left parafalcine Menometrorrhagia Onset Date: Unknown Mild concentric left ventricular hypertrophy (LVH) Onset Date: ~05/2017 EF 65-70%, diastolic dysfunction, Echo, [facility], 05/25/2017 Morbid obesity Onset Date: ~09/2011 Neuropathy Onset Date: ~09/2011 SHAHLA (obstructive sleep apnea) Onset Date: ~08/2011 AHI 8.4/hr, lowest O2 sat 76%, [facility] HST, 05/03/2016 Ovarian cyst Onset Date: Unknown PTSD (post-traumatic stress disorder) Onset Date: Unknown event from childhood Rhinitis, chronic Onset Date: ~09/2015 Tinnitus Onset Date: Unknown Vertigo Onset Date: Unknown Vitamin B12 deficiency Onset Date: Unknown Surgical History (Last Reviewed 05/31/18 @ 17:00 by Lalit Rhodes CRNA) Total knee replacement status (Chronic) 04/03/18 Arianna Status post total right knee replacement (Acute) History of knee replacement procedure of right knee Onset Date: 04/03/18 S/P wrist surgery Onset Date: ~201204/10/2013, 03/2015. Venancio- Right, left wrist tendon release Colonoscopy planned Onset Date: ~04/2014 Sandrita-normal recheck 10years De Quervain's disease (tenosynovitis) Onset Date: ~03/2015 Surgery left H/O arthroscopy of shoulder Onset Date: ~09/2016 right with mini open rotator cuff repair supraspinatus and arthroscopic debridement of the labrum- Dr Keller H/O brain surgery Onset Date: ~02/2016 Dr Cuevas, [place] H/O cervical biopsy Onset Date: Unknown cyst on cervix had a biopsy done and this was normal H/O laparoscopy Onset Date: ~2010 right s/o H/O sinus surgery Onset Date: ~2003 Dr Sullivan H/O thyroidectomy Onset Date: ~02/22, 03/25. Removed rt side initially with malignant nodule. Second surgery removed lt side H/O tubal ligation Onset Date: ~1991 History of arthroscopic knee surgery Onset Date: ~05/2014 Left knee. Chondroplasty of MFC. LFC, partial lateral meniscectomy History of carpal tunnel release Onset Date: ~2003 [place], right wrist. Revision 02/02/2016 right open carpal tunnel release per Dr Keller History of cholecystectomy Onset Date: ~2009 [place]-lap History of endometrial biopsy Onset Date: ~09/2010 Negative for malignancy History of esophagogastroduodenoscopy Onset Date: ~1995 1995, 11/26/2009-[place] History of incision and drainage Onset Date: ~2001 [place]- ABD wall abcess History of salpingo-oophorectomy Onset Date: ~2010 Right- [place] History of total knee arthroplasty Onset Date: ~05/[address] Keller Hx of nasal septoplasty Onset Date: ~2004 Dr Sullivan Previous back surgery Onset Date: ~2006 Lumbar, Dr Cuevas S/P cervical spinal fusion Onset Date: ~07/2005 Dr Aceves, 2005, 08/03/2010, 03/04/2012 S/P epidural steroid injection Onset Date: ~2007 2007, 2009 Multiple C6-7, C7-T1 S/P right knee arthroscopy Onset Date: Unknown x 2 S/P rotator cuff repair Onset Date: ~09/2016 right- Dr Keller Tonsillectomy planned Onset Date: ~1967 Family History (Last Reviewed 05/31/18 @ 17:00 by Lalit Rhodes CRNA) Brother Hypertension Gout Daughter Hypertension Hypothyroidism Father Hypertension Heart disease Myocardial infarction Mother Hypertension Alzheimers disease TIA (transient ischemic attack) Gallbladder disease - Family Anesthesia History Family History:: no untoward family reactions to anesthesia, no familial bleeding tendencies, no family history of clotting disorders, no family history of premature - Airway/Neck/Teeth Within Normal Limits:: Yes Teeth Condition: Intact Mallampatti Score: 3 Thyromental (T-M) distance: > 6 cm Mandibulo Hyoid distance: > 3 cm - Respiratory Respiratory: decreased breath sounds Discussed smoking cessation including day of surgery: No Sleep Apnea currently treated: No Sleep Apnea by current assessment: No Discussed Risks/Treatment of SHAHLA: No - Cardiovascular Tolerates Activity: Fair Heart Sounds: S1 & S2, Regular - Anesthesia Assessment and Plan ASA Class: PS, III Anesthesia Type Plan: General ET
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
[2018-05-31] MEDS: RINGER'S SOLUTION,LACTATED 1,000 ML IV PRN ×2 (17:10→21:54)
[2018-05-31] MEDS ORDERED: BUPIVACAINE HCL/EPINEPHRINE/PF 30 ML VIAL IJ ONE (17:56)
--- NOTE | 2018-05-31 18:23 | ANES ---
Post Anesthesia Discharge - Transfer of Care Transfer of Care handoff given to nurse: Yes - Discharge from PACU Discharge from PACU when meets criteria: Yes - Discharge to ASU Discharge to ASU-no complications/pt stable: Yes
--- NOTE | 2018-05-31 18:24 | ANES ---
Post Anesthesia Assessment - Vital Signs Vitals: Last Vital Signs Temp 36.8 C 05/31/18 13:36 Pulse 95 05/31/18 13:36 Resp 14 05/31/18 13:36 BP 117/63 05/31/18 13:36 Pulse Ox 95 05/31/18 13:36 Airway Patency: Normal - Mental Status Level Of Consciousness: Awake - Pain Level Pain Score: 0 - N/V Assessment Nausea/Vomiting Presence: None Dehydration:: No
[2018-05-31] MEDS ORDERED: NON-FORMULARY 1 DOSE DOSE (Trazodone Hcl [Trazodone Hcl] 200 MG) PO PRN (18:26)
--- NOTE | 2018-05-31 18:55 | OR ---
Operative Report - Dictated Report Narrative: OPERATIVE REPORT DATE OF OPERATION: 05/31/2018 PREOPERATIVE DIAGNOSIS: Abscess of the mons pubis POSTOPERATIVE DIAGNOSIS: Abscess of the mons pubis (16 cm medial/lateral, 4 cm depth) OPERATION: Incision and drainage of abscess of the mons pubis with packing SURGEON: Bi Remy MD ANESTHESIA: General endotracheal Lalit Rhodes CRNA INDICATIONS FOR PROCEDURE: The patient is a 53-year-old diabetic female who presented to the emergency room with a one-week history of malaise and pain in the groin. She started having drainage from the mons pubis perhaps yesterday. She is one-month status post left total knee replacement FINDINGS: Large abscess of the mons pubis extending 16 cm from the midline laterally into the right groin. 4 cm depth. C&S pending NARRATIVE OF PROCEDURE: The patient was identified preoperatively. The surgical site was confidently identified and prior to the administration of anesthetic a multidisciplinary timeout was observed. The patient was placed supine SCDs were applied and general endotracheal anesthetic administered. [place] cultures of the abscess drainage were submitted prior to starting vancomycin IV. The groin and lower abdomen were prepped with Betadine solution and a generous area outlined with 4 sterile towels to incorporate all the erythema. The remainder the patient was covered with a sterile disposable drape. A hemostat was used to probe the draining area which revealed an abscess cavity tracking laterally. The skin was anesthetized with 0.5% Marcaine with epinephrine. 1/4 cm skin incision was made over the abscess cavity and dissection carried through subcutaneous tissue until the cavity had been unroofed. A forefinger was inserted and loculations bluntly lysed. The cavity was then irrigated with a liter of normal saline. The cavity was inspected there were no additional extensions, specifically the cavity did not extend into the upper thigh. The cavity extended from the midline of the mons pubis for 16 cm laterally. The cavity was then inspected for hemostasis which appeared complete. The cavity was then packed with 2 inch iodoform gauze. A dressing of 4 x 4, Mepilex border, and Metapore tape was applied. The operative procedure was terminated at this point. The patient tolerated the anesthetic and procedure well without complication. She was recovered in the operating room and then returned to the floor awake extubated and in stable condition. Clinical suspicion is that this represents an MRSA abscess. She will require return to the operating room tomorrow for packing change. Will empirically continue vancomycin and begin trimethoprim sulfamethoxazole DS 2 tabs p.o. twice daily. Anticipate the patient will require hospitalization for at least 2 midnights pending response. Reviewed and electronically signed
[2018-05-31] MEDS: ACETAMINOPHEN 325 MG TABLET PO PRN (21:55)
[2018-05-31] MEDS: SULFAMETHOXAZOLE/TRIMETHOPRIM 1 TAB TABLET PO SCH (21:55)
[2018-05-31] MEDS: lamoTRIgine 100 MG TABLET PO SCH (21:55)
[2018-06-01] MEDS ORDERED: BUPIVACAINE HCL/EPINEPHRINE 50 ML VIAL IJ PRN ×2 (06:00→07:14)
--- NOTE | 2018-06-01 06:41 | ANES ---
Anesthesia Pre Procedure Eval Vitals/Labs: Last Vital Signs Temp 37.2 C 06/01/18 00:15 Pulse 83 06/01/18 04:15 Resp 16 06/01/18 04:15 BP 110/47 06/01/18 04:15 Pulse Ox 93 06/01/18 04:15 HOME MEDICATIONS Esomeprazole Magnesium [Nexium] 40 mg PO DAILY 09/26/13 [Last Taken Unknown] EPINEPHrine [Epipen] 0.3 mg IJ ONCE PRN 05/01/14 [Last Taken Unknown] Calcium Carbonate/Vitamin D3 [Calcium 600-Vit D3 200 Tablet] 1 ea PO DAILY 09/25/16 [Last Taken Unknown] Cholecalciferol [Vitamin D] 1,000 unit PO DAILY 09/25/16 [Last Taken Unknown] Meclizine HCl [Antivert] 25 mg PO DAILY PRN 09/25/16 [Last Taken Unknown] Fluticasone Propionate [Flonase] 2 spray NS DAILY 05/23/17 [Last Taken 04/03/18 06:15] ascorbic acid (vitamin C) 1,000 mg tablet 1,000 mg PO DAILY tab 01/13/18 [Last Taken Unknown] levothyroxine 200 mcg tablet 300 mcg PO DAILY #30 tab 03/20/18 [Last Taken Unknown] albuterol sulfate HFA 90 mcg/actuation aerosol inhaler 2 puff IH Q6H PRN #8.5 g 03/22/18 [Last Taken 04/03/18 06:15] losartan 100 mg tablet 100 mg PO DAILY #30 tab 04/03/18 [Last Taken Unknown] diflunisal 500 mg tablet 500 mg PO BID #60 tab 04/05/18 [Last Taken Unknown] hydrochlorothiazide 12.5 mg tablet 12.5 mg PO DAILY #30 tab 04/05/18 [Last Taken Unknown] aripiprazole 30 mg tablet 15 mg PO DAILY #15 tab 04/15/18 [Last Taken Unknown] lamotrigine 150 mg tablet 150 mg PO BID #60 tab 04/15/18 [Last Taken Unknown] trazodone 100 mg tablet 200 mg PO HS PRN #60 tab 04/15/18 [Last Taken Unknown] alprazolam 2 mg tablet 2 mg PO HS #45 tab 04/30/18 [Last Taken Unknown] morphine 15 mg immediate release tablet 15 mg PO .COMPLEX PRN #40 tab 05/14/18 [Last Taken Unknown] cefdinir 300 mg capsule 300 mg PO Q12H 7 Days #14 cap 05/29/18 [Last Taken Unknown] ondansetron 4 mg disintegrating tablet 4 mg PO TID PRN #9 tab 05/29/18 [Last Taken Unknown] Allergies/Adverse Reactions: Allergies Allergy/AdvReac Type Severity Reaction Status Date / Time meloxicam [From Mobic] Allergy Intermediate swelling Verified 05/29/18 16:57 in extremites benzoin Allergy Mild ITCH, Verified 05/29/18 16:57 RASH, BURNING Penicillins Allergy Mild Hives Verified 05/29/18 16:57 tizanidine [Tizanidine] AdvReac Mild dizzy, dry Verified 05/29/18 16:57 mouth oxycodone AdvReac "knocks Verified 05/29/18 16:57 her out" - Planned Procedure Planned Procedure: I&D groin Medication List Reviewed:: Yes Allergies Verified: Yes Medical History (Last Reviewed 06/01/18 @ 06:39 by Lalit Rhodes CRNA) Osteoarthritis (Chronic) Acute blood loss anemia (Acute) Bipolar affective disorder, current episode depressed (Chronic) Borderline personality disorder (Chronic) SHAHLA (obstructive sleep apnea) (Chronic) Adult BMI 45.0-49.9 kg/sq m (Chronic) Acquired hypothyroidism (Chronic) Hyperlipidemia type II (Chronic) Type IIa Osteoarthritis of left knee (Chronic) Osteoarthritis of knee (Chronic) Gastroenteritis (Chronic) Cough (Acute) Otitis media (Acute) Hypertension (Chronic) Vertigo (Chronic) Constipation (Chronic) Cellulitis (Acute) Medication adverse effect (Acute) Right shoulder injury (Acute) Sinusitis (Acute) Asthma (Chronic) Diabetes mellitus type 2 in obese (Chronic) Fibromyalgia (Chronic) Depression (Chronic) Hyperlipidemia (Chronic) Sleep apnea (Chronic) PTSD (post-traumatic stress disorder) (Chronic) Abnormal Pap smear of cervix Onset Date: ~1989 Allergic rhinitis Onset Date: Unknown Asthma Onset Date: ~08/2011 Intermittent Chronic pain syndrome Onset Date: ~04/2014 Chronic venous insufficiency Onset Date: ~11/2016 Constipation Onset Date: ~09/2015 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%, left ear 20% Depression Onset Date: Unknown Diabetes mellitus Onset Date: Unknown Edema Onset Date: ~11/2016 Fibromyalgia Onset Date: ~09/2015 Gastroesophageal reflux Onset Date: Unknown Hepatomegaly Onset Date: ~09/2012 Hyperlipidemia Onset Date: Unknown Hypertension, essential Onset Date: Unknown Insomnia Onset Date: ~11/2016 Interstitial cystitis Onset Date: Unknown Malignant neoplasm of thyroid gland Onset Date: ~02/2010 Meniere disease Onset Date: ~03/2011 Meningioma Onset Date: ~09/2012 left parafalcine Menometrorrhagia Onset Date: Unknown Mild concentric left ventricular hypertrophy (LVH) Onset Date: ~05/2017 EF 65-70%, diastolic dysfunction, Echo, [facility], 05/25/2017 Morbid obesity Onset Date: ~09/2011 Neuropathy Onset Date: ~09/2011 SHAHLA (obstructive sleep apnea) Onset Date: ~08/2011 AHI 8.4/hr, lowest O2 sat 76%, [facility] HST, 05/03/2016 Ovarian cyst Onset Date: Unknown PTSD (post-traumatic stress disorder) Onset Date: Unknown event from childhood Rhinitis, chronic Onset Date: ~09/2015 Tinnitus Onset Date: Unknown Vertigo Onset Date: Unknown Vitamin B12 deficiency Onset Date: Unknown Surgical History (Last Reviewed 06/01/18 @ 06:39 by Lalit Rhodes [employer]IAL DRILL OPERATOR) Total knee replacement status (Chronic) 04/03/18 Arianna Status post total right knee replacement (Acute) History of knee replacement procedure of right knee Onset Date: 04/03/18 S/P wrist surgery Onset Date: ~201204/10/2013, 03/2015. Venancio- Right, left wrist tendon release Colonoscopy planned Onset Date: ~04/2014 Sandrita-normal recheck 10years De Quervain's disease (tenosynovitis) Onset Date: ~03/2015 Surgery left H/O arthroscopy of shoulder Onset Date: ~09/2016 right with mini open rotator cuff repair supraspinatus and arthroscopic debridement of the labrum- Dr Keller H/O brain surgery Onset Date: ~02/2016 Dr Cuevas, [place] H/O cervical biopsy Onset Date: Unknown cyst on cervix had a biopsy done and this was normal H/O laparoscopy Onset Date: ~2010 right s/o H/O sinus surgery Onset Date: ~2003 Dr Sullivan H/O thyroidectomy Onset Date: ~02/22, 03/25. Removed rt side initially with malignant nodule. Second surgery removed lt side H/O tubal ligation Onset Date: ~1991 History of arthroscopic knee surgery Onset Date: ~05/2014 Left knee. Chondroplasty of MFC. LFC, partial lateral meniscectomy History of carpal tunnel release Onset Date: ~2003 [place], right wrist. Revision 02/02/2016 right open carpal tunnel release per Dr Keller History of cholecystectomy Onset Date: ~2009 Tingu[place]-lap History of endometrial biopsy Onset Date: ~09/2010 Negative for malignancy History of esophagogastroduodenoscopy Onset Date: ~1995 1995, 11/26/2009-[place]ingu[place] History of incision and drainage Onset Date: ~2001 Tinguely- ABD wall abcess History of salpingo-oophorectomy Onset Date: ~2010 Right- Staudte History of total knee arthroplasty Onset Date: ~05/[address] Keller Hx of nasal septoplasty Onset Date: ~2004 Dr Sullivan Previous back surgery Onset Date: ~2006 Lumbar, Dr Cuevas S/P cervical spinal fusion Onset Date: ~07/2005 Dr Aceves, 2005, 08/03/2010, 03/04/2012 S/P epidural steroid injection Onset Date: ~2007 2007, 2009 Multiple C6-7, C7-T1 S/P right knee arthroscopy Onset Date: Unknown x 2 S/P rotator cuff repair Onset Date: ~09/2016 right- Dr Keller Tonsillectomy planned Onset Date: ~1967 Family History (Last Reviewed 06/01/18 @ 06:39 by Lalit Rhodes CRNA) Brother Hypertension Gout Daughter Hypertension Hypothyroidism Father Hypertension Heart disease Myocardial infarction Mother Hypertension Alzheimers disease TIA (transient ischemic attack) Gallbladder disease - Family Anesthesia History Family History:: no untoward family reactions to anesthesia, no familial bleeding tendencies, no family history of clotting disorders, no family history of premature - Airway/Neck/Teeth Within Normal Limits:: Yes Teeth Condition: Intact Mallampatti Score: 3 Thyromental (T-M) distance: > 6 cm Mandibulo Hyoid distance: > 3 cm - Respiratory Respiratory: decreased breath sounds Smoking Status: Current every day smoker Discussed smoking cessation including day of surgery: No Sleep Apnea currently treated: Yes Sleep Apnea by current assessment: No Discussed Risks/Treatment of SHAHLA: No - Cardiovascular Tolerates Activity: Fair Heart Sounds: S1 & S2, Regular - Anesthesia Assessment and Plan ASA Class: PS, III, E Anesthesia Type Plan: MAC
[2018-06-01] MEDS ORDERED: ALBUTEROL SULFATE 2.5 MG/0.5 ML VIAL.NEB IH PRN (07:00)
[2018-06-01] MEDS ORDERED: BISACODYL 10 MG SUPP.RECT RC PRN (07:29)
[2018-06-01] MEDS: LEVOTHYROXINE SODIUM 150 MCG TABLET PO SCH (07:33)
[2018-06-01] MEDS: PANTOPRAZOLE SODIUM 40 MG TABLET.EC PO SCH (07:33)
--- NOTE | 2018-06-01 07:43 | ANES ---
Post Anesthesia Assessment - Vital Signs Vitals: Last Vital Signs Temp 37.2 C 06/01/18 00:15 Pulse 83 06/01/18 04:15 Resp 16 06/01/18 04:15 BP 110/47 06/01/18 04:15 Pulse Ox 93 06/01/18 04:15 Airway Patency: Normal - Mental Status Level Of Consciousness: Awake - Pain Level Pain Score: 0 - N/V Assessment Nausea/Vomiting Presence: None Dehydration:: No
--- NOTE | 2018-06-01 07:46 | OR ---
Operative Report - Dictated Report Narrative: OPERATIVE REPORT DATE OF OPERATION: 06/01/2018 PREOPERATIVE DIAGNOSIS: Abscess of mons pubis and groin POSTOPERATIVE DIAGNOSIS: Same (improved) OPERATION: Packing change and irrigation under anesthesia SURGEON: Bi Remy MD ANESTHESIA: MAC/local Lalit Rhodes CRNA INDICATIONS FOR PROCEDURE: The patient is a 53-year-old female who presented to the emergency room with a large abscess on the mons pubis extending into the right groin. This was incised and drained yesterday. She is brought for packing change FINDINGS: Improvement in the inflammation and induration in the groin and thigh. No extension to the abscess with beginnings of granulation The medial/lateral extent of the abscess is approximately 16 cm with 4 cm of depth. NARRATIVE OF PROCEDURE: The patient was identified preoperatively and prior to the administration of anesthetic a multidisciplinary timeout was observed. The patient was placed supine with SCDs and intravenous sedation administered. The patient's right groin was prepped with Betadine solution and isolated with 4 sterile towels. The previous packing was removed. The cavity was then explored. There was no extension. The cavity was then irrigated with 1 L of normal saline. 0.5% Marcaine with epinephrine was used for local anesthetic. The cavity was then packed with 2 inch iodoform gauze. A dressing of 4 x 4, Mepilex border, and Metapore tape was applied. The operative procedure was terminated at this point. The patient tolerated the anesthetic and procedure Well without complication. There was no measurable blood loss. No specimens were submitted. All counts were correct. The patient was transferred back to the floor awake and in stable condition. Plan is to continue IV and p.o. antibiotic pending cultures. She will be brought back to the OR for packing change and irrigation again tomorrow. Reviewed and electronically signed
[2018-06-01 08:14] LABS: Hemoglobin 11.3 gm/dL (12.5-16.0); Mean Cell Volume 86.4 fl (78-100); Mean Corpuscular Hemoglobin 27.9 pg (27-31); Mean Corpuscular Hgb Conc 32.3 g/dl (32-36); Mean Platelet Volume 9.6 fl (8-12.5); Neutrophil # 11.3 K/mm3 (1.3-6.0); Neutrophil % 72.1 % (42-75.0); Platelet Count 341 K/mm3 (150-450); Red Blood Count 4.05 M/mm3 (4.2-5.4); White Blood Count 15.7 K/mm3 (4.0-10.5)
[2018-06-01] MEDS: ACETAMINOPHEN 325 MG TABLET PO PRN ×2 (10:36→18:37)
[2018-06-01] MEDS: POLYETHYLENE GLYCOL 3350 119 GM BTL PO SCH (10:36)
[2018-06-01] MEDS: HYDROCHLOROTHIAZIDE 12.5 MG CAPSULE PO SCH (10:37)
[2018-06-01] MEDS: LOSARTAN POTASSIUM 50 MG TABLET PO SCH (10:37)
[2018-06-01] MEDS: ARIPiprazole 10 MG TABLET PO SCH (10:37)
[2018-06-01] MEDS: lamoTRIgine 100 MG TABLET PO SCH ×2 (10:37→20:44)
[2018-06-01] MEDS: SULFAMETHOXAZOLE/TRIMETHOPRIM 1 TAB TABLET PO SCH ×2 (10:37→20:44)
[2018-06-01] MEDS: FLUTICASONE PROPIONATE 120 SPRAY INHALER NS SCH (10:40)
[2018-06-01] MEDS: VANCOMYCIN HCL 1.25 GM in DEXTROSE 5 % IN WATER 250 ML IV SCH ×2 (17:43)
[2018-06-01] MEDS ORDERED: BISACODYL 5 MG TABLET.DR PO ONE (22:05)
--- NOTE | 2018-06-01 22:08 | PN ---
Dictated Progress Note - Date and Time Seen: Date: 06/01/18 Time: 12:00 - Progress Note Narrative: Vital Signs - Last Taken Temp 36.8 C 06/01/18 18:41 Pulse 80 06/01/18 21:37 Resp 16 06/01/18 21:37 BP 113/59 06/01/18 21:37 Pulse Ox 92 L 06/01/18 21:37 Abnormal/Pending Laboratory Last 24 HRS 06/01/18 07:41 WBC 15.7 H D RBC 4.05 L Hgb 11.3 L Hct 35.0 L Immature Gran % (Auto) 0.80 H Immature Gran # (Auto) 0.12 H Lymphocytes % 16.2 L Eosinophils % 4.3 H Neutrophils # 11.3 H Culture 05/31/18 14:37 Blood Culture - Preliminary Blood NO GROWTH 24 HOURS 05/31/18 14:20 Blood Culture - Preliminary Blood NO GROWTH 24 HOURS 05/31/18 18:14 Abscess Culture - Preliminary Other - Right No Growth 05/31/18 18:14 Abscess Culture - Preliminary Other - Right No Growth VS have been normal. The pubis and upper thigh are less inflamed and there is no extension to the abscess cavity and it is clean. WBC decreased. Pain controlled. Has been OOb. c/o no BM for several days. Will return to OR in AM for packing change. continue antibiotics pending C&S (no growth so far)
[2018-06-02] MEDS: RINGER'S SOLUTION,LACTATED 1,000 ML IV PRN (08:00)
[2018-06-02] MEDS ORDERED: BUPIVACAINE HCL/EPINEPHRINE 50 ML VIAL IJ ONE (08:17)
--- NOTE | 2018-06-02 09:43 | OR ---
Operative Report - Dictated Report Narrative: OPERATIVE REPORT DATE OF OPERATION: 06/02/2018 PREOPERATIVE DIAGNOSIS: Abscess of mons pubis and right groin POSTOPERATIVE DIAGNOSIS: Same (with extension into the upper thigh) OPERATION: Packing change under anesthesia with additional incision and drainage of abscess loculations in the right groin and upper right thigh SURGEON: Bi Remy MD ANESTHESIA: JESUS Rhodes CRNA INDICATIONS FOR PROCEDURE: The patient is a 53-year-old female who initially presented on 1116 with a draining area on the mons pubis which is been present for perhaps a week. The area was incised and drained with packing. Yesterday the packing was changed and there were no additional collections. Her white blood cell count has decreased. Today she is more tender. She is brought for packing change FINDINGS: Original abscess cavity is clean and granulating. Erythema in the skin is virtually resolved. There is however extension laterally into the right groin toward the flank and down the upper portion of the right thigh. The cavities are clean after irrigation and packing. There is no gas NARRATIVE OF PROCEDURE: The patient was identified preoperatively and prior to the administration of anesthetic a multidisciplinary timeout was observed. Intravenous sedation was administered. The patient's right groin was prepped with Betadine. The area was isolated with sterile towels. The old packing was removed. The cavity was then irrigated and digitally explored. There was a source of purulent drainage located on the lateral end of the incision. This was explored with a hemostat and found to track laterally and down into the upper thigh. The loculations were then bluntly lysed and the cavity thoroughly irrigated with saline until clear. No further purulent material could be expressed from either the thigh or the right flank. The cavity was packed with 2 inch iodoform gauze. A dressing of 4 x 4, Mepilex border, and Metapore tape was applied. The patient tolerated the anesthetic and procedure well without complication. There was minimal blood loss. No specimens were submitted. The patient was transferred back to the floor awake and in stable condition. As the extensions appear to be liquefication of the previous edema identified on CT without additional extension, plan will be to continue antibiotics (pending culture) and return the patient to the OR tomorrow for packing change. Ultimately this may require the use of a wound VAC, will discuss the case with the wound center tomorrow. Reviewed and electronically signed
[2018-06-02] MEDS: POLYETHYLENE GLYCOL 3350 119 GM BTL PO SCH (10:40)
[2018-06-02] MEDS: HYDROCHLOROTHIAZIDE 12.5 MG CAPSULE PO SCH (10:41)
[2018-06-02] MEDS: LOSARTAN POTASSIUM 50 MG TABLET PO SCH (10:41)
[2018-06-02] MEDS: ARIPiprazole 10 MG TABLET PO SCH (10:41)
[2018-06-02] MEDS: LEVOTHYROXINE SODIUM 150 MCG TABLET PO SCH (10:41)
[2018-06-02] MEDS: SULFAMETHOXAZOLE/TRIMETHOPRIM 1 TAB TABLET PO SCH ×2 (10:41→20:14)
[2018-06-02] MEDS: PANTOPRAZOLE SODIUM 40 MG TABLET.EC PO SCH (10:42)
[2018-06-02] MEDS: FLUTICASONE PROPIONATE 120 SPRAY INHALER NS SCH (10:42)
[2018-06-02] MEDS: lamoTRIgine 100 MG TABLET PO SCH ×2 (10:42→20:14)
[2018-06-02] MEDS: ACETAMINOPHEN 325 MG TABLET PO PRN ×2 (10:44→20:24)
--- NOTE | 2018-06-02 16:28 | ANES ---
Anesthesia Pre Procedure Eval Vitals/Labs: Last Vital Signs Temp 36.5 C 06/02/18 15:07 Pulse 85 06/02/18 15:07 Resp 18 06/02/18 15:07 BP 102/64 06/02/18 15:07 Pulse Ox 95 06/02/18 15:07 HOME MEDICATIONS Esomeprazole Magnesium [Nexium] 40 mg PO DAILY 09/26/13 [Last Taken Unknown] EPINEPHrine [Epipen] 0.3 mg IJ ONCE PRN 05/01/14 [Last Taken Unknown] Calcium Carbonate/Vitamin D3 [Calcium 600-Vit D3 200 Tablet] 1 ea PO DAILY 09/25/16 [Last Taken Unknown] Cholecalciferol [Vitamin D] 1,000 unit PO DAILY 09/25/16 [Last Taken Unknown] Meclizine HCl [Antivert] 25 mg PO DAILY PRN 09/25/16 [Last Taken Unknown] Fluticasone Propionate [Flonase] 2 spray NS DAILY 05/23/17 [Last Taken 04/03/18 06:15] ascorbic acid (vitamin C) 1,000 mg tablet 1,000 mg PO DAILY tab 01/13/18 [Last Taken Unknown] levothyroxine 200 mcg tablet 300 mcg PO DAILY #30 tab 03/20/18 [Last Taken Unknown] albuterol sulfate HFA 90 mcg/actuation aerosol inhaler 2 puff IH Q6H PRN #8.5 g 03/22/18 [Last Taken 04/03/18 06:15] losartan 100 mg tablet 100 mg PO DAILY #30 tab 04/03/18 [Last Taken Unknown] diflunisal 500 mg tablet 500 mg PO BID #60 tab 04/05/18 [Last Taken Unknown] hydrochlorothiazide 12.5 mg tablet 12.5 mg PO DAILY #30 tab 04/05/18 [Last Taken Unknown] aripiprazole 30 mg tablet 15 mg PO DAILY #15 tab 04/15/18 [Last Taken Unknown] lamotrigine 150 mg tablet 150 mg PO BID #60 tab 04/15/18 [Last Taken Unknown] trazodone 100 mg tablet 200 mg PO HS PRN #60 tab 04/15/18 [Last Taken Unknown] alprazolam 2 mg tablet 2 mg PO HS #45 tab 04/30/18 [Last Taken Unknown] morphine 15 mg immediate release tablet 15 mg PO .COMPLEX PRN #40 tab 05/14/18 [Last Taken Unknown] cefdinir 300 mg capsule 300 mg PO Q12H 7 Days #14 cap 05/29/18 [Last Taken Unknown] ondansetron 4 mg disintegrating tablet 4 mg PO TID PRN #9 tab 05/29/18 [Last Taken Unknown] Allergies/Adverse Reactions: Allergies Allergy/AdvReac Type Severity Reaction Status Date / Time meloxicam [From Mobic] Allergy Intermediate swelling Verified 05/29/18 16:57 in extremites benzoin Allergy Mild ITCH, Verified 05/29/18 16:57 RASH, BURNING Penicillins Allergy Mild Hives Verified 05/29/18 16:57 tizanidine [Tizanidine] AdvReac Mild dizzy, dry Verified 05/29/18 16:57 mouth oxycodone AdvReac "knocks Verified 05/29/18 16:57 her out" - Planned Procedure Planned Procedure: I&D groin Medication List Reviewed:: Yes Allergies Verified: Yes Medical History (Last Reviewed 06/02/18 @ 16:28 by Lalit Rhodes CRNA) Osteoarthritis (Chronic) Acute blood loss anemia (Acute) Bipolar affective disorder, current episode depressed (Chronic) Borderline personality disorder (Chronic) SHAHLA (obstructive sleep apnea) (Chronic) Adult BMI 45.0-49.9 kg/sq m (Chronic) Acquired hypothyroidism (Chronic) Hyperlipidemia type II (Chronic) Type IIa Osteoarthritis of left knee (Chronic) Osteoarthritis of knee (Chronic) Gastroenteritis (Chronic) Cough (Acute) Otitis media (Acute) Hypertension (Chronic) Vertigo (Chronic) Constipation (Chronic) Cellulitis (Acute) Medication adverse effect (Acute) Right shoulder injury (Acute) Sinusitis (Acute) Asthma (Chronic) Diabetes mellitus type 2 in obese (Chronic) Fibromyalgia (Chronic) Depression (Chronic) Hyperlipidemia (Chronic) Sleep apnea (Chronic) PTSD (post-traumatic stress disorder) (Chronic) Abnormal Pap smear of cervix Onset Date: ~1989 Allergic rhinitis Onset Date: Unknown Asthma Onset Date: ~08/2011 Intermittent Chronic pain syndrome Onset Date: ~04/2014 Chronic venous insufficiency Onset Date: ~11/2016 Constipation Onset Date: ~09/2015 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%, 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% Depression Onset Date: Unknown Diabetes mellitus Onset Date: Unknown Edema Onset Date: ~11/2016 Fibromyalgia Onset Date: ~09/2015 Gastroesophageal reflux Onset Date: Unknown Hepatomegaly Onset Date: ~09/2012 Hyperlipidemia Onset Date: Unknown Hypertension, essential Onset Date: Unknown Insomnia Onset Date: ~11/2016 Interstitial cystitis Onset Date: Unknown Malignant neoplasm of thyroid gland Onset Date: ~02/2010 Meniere disease Onset Date: ~03/2011 Meningioma Onset Date: ~09/2012 left parafalcine Menometrorrhagia Onset Date: Unknown Mild concentric left ventricular hypertrophy (LVH) Onset Date: ~05/2017 EF 65-70%, diastolic dysfunction, Echo, [facility], 05/25/2017 Morbid obesity Onset Date: ~09/2011 Neuropathy Onset Date: ~09/2011 SHAHLA (obstructive sleep apnea) Onset Date: ~08/2011 AHI 8.4/hr, lowest O2 sat 76%, [facility] HST, 05/03/2016 Ovarian cyst Onset Date: Unknown PTSD (post-traumatic stress disorder) Onset Date: Unknown event from childhood Rhinitis, chronic Onset Date: ~09/2015 Tinnitus Onset Date: Unknown Vertigo Onset Date: Unknown Vitamin B12 deficiency Onset Date: Unknown Surgical History (Last Reviewed 06/02/18 @ 16:28 by Lalit Rhodes [employer]) Total knee replacement status (Chronic) 04/03/18 Arinana Status post total right knee replacement (Acute) History of knee replacement procedure of right knee Onset Date: 04/03/18 S/P wrist surgery Onset Date: ~201204/10/2013, 03/2015. Venancio- Right, left wrist tendon release Colonoscopy planned Onset Date: ~04/2014 Sandrita-normal recheck 10years De Quervain's disease (tenosynovitis) Onset Date: ~03/2015 Surgery left H/O arthroscopy of shoulder Onset Date: ~09/2016 right with mini open rotator cuff repair supraspinatus and arthroscopic debridement of the labrum- Dr Keller H/O brain surgery Onset Date: ~02/2016 Dr Cuevas, [place] H/O cervical biopsy Onset Date: Unknown cyst on cervix had a biopsy done and this was normal H/O laparoscopy Onset Date: ~2010 right s/o H/O sinus surgery Onset Date: ~2003 Dr Sullivan H/O thyroidectomy Onset Date: ~02/22, 03/25. Removed rt side initially with malignant nodule. Second surgery removed lt side H/O tubal ligation Onset Date: ~1991 History of arthroscopic knee surgery Onset Date: ~05/2014 Left knee. Chondroplasty of MFC. LFC, partial lateral meniscectomy History of carpal tunnel release Onset Date: ~2003 [place], right wrist. Revision 02/02/2016 right open carpal tunnel release per Dr Keller History of cholecystectomy Onset Date: ~2009 [place]ingu[place]-lap History of endometrial biopsy Onset Date: ~09/2010 Negative for malignancy History of esophagogastroduodenoscopy Onset Date: ~1995 1995, 11/26/2009-Tingu[place] History of incision and drainage Onset Date: ~2001 [place]ingu[place]- ABD wall abcess History of salpingo-oophorectomy Onset Date: ~2010 Right- Staudte History of total knee arthroplasty Onset Date: ~05/[address] Keller Hx of nasal septoplasty Onset Date: ~2004 Dr Sullivan Previous back surgery Onset Date: ~2006 Lumbar, Dr Cuevas S/P cervical spinal fusion Onset Date: ~07/2005 Dr Aceves, 2005, 08/03/2010, 03/04/2012 S/P epidural steroid injection Onset Date: ~2007 2007, 2009 Multiple C6-7, C7-T1 S/P right knee arthroscopy Onset Date: Unknown x 2 S/P rotator cuff repair Onset Date: ~09/2016 right- Dr Keller Tonsillectomy planned Onset Date: ~1967 Family History (Last Reviewed 06/02/18 @ 16:28 by Lalit Rhodes CRNA) Brother Hypertension Gout Daughter Hypertension Hypothyroidism Father Hypertension Heart disease Myocardial infarction Mother Hypertension Alzheimers disease TIA (transient ischemic attack) Gallbladder disease - Family Anesthesia History Family History:: no untoward family reactions to anesthesia, no familial bleeding tendencies, no family history of clotting disorders, no family history of premature - Airway/Neck/Teeth Teeth Condition: Intact Mallampatti Score: 3 Thyromental (T-M) distance: > 6 cm Mandibulo Hyoid distance: > 3 cm - Respiratory Smoking Status: Current every day smoker Discussed smoking cessation including day of surgery: No Sleep Apnea currently treated: Yes Sleep Apnea by current assessment: No Discussed Risks/Treatment of SHAHLA: No - Cardiovascular Tolerates Activity: Fair Heart Sounds: S1 & S2, Regular - Anesthesia Assessment and Plan ASA Class: PS, III, E Anesthesia Type Plan: MAC
--- NOTE | 2018-06-02 16:29 | ANES ---
Post Anesthesia Assessment - Vital Signs Vitals: Last Vital Signs Temp 36.5 C 06/02/18 15:07 Pulse 85 06/02/18 15:07 Resp 18 06/02/18 15:07 BP 102/64 06/02/18 15:07 Pulse Ox 95 06/02/18 15:07 Airway Patency: Normal - Mental Status Level Of Consciousness: Awake - Pain Level Pain Score: 0 - N/V Assessment Nausea/Vomiting Presence: None Dehydration:: No
[2018-06-02] MEDS: VANCOMYCIN HCL 1.25 GM in DEXTROSE 5 % IN WATER 250 ML IV SCH ×2 (17:33)
[2018-06-03] MEDS ORDERED: HYDROcodone/ACETAMINOPHEN 1 EACH TABLET ONE (01:34)
[2018-06-03] MEDS: HYDROcodone/ACETAMINOPHEN 1 EACH TABLET PO PRN ×4 (01:37→21:18)
[2018-06-03] MEDS: PANTOPRAZOLE SODIUM 40 MG TABLET.EC PO SCH (06:50)
[2018-06-03] MEDS: LEVOTHYROXINE SODIUM 150 MCG TABLET PO SCH (06:51)
[2018-06-03] MEDS: SULFAMETHOXAZOLE/TRIMETHOPRIM 1 TAB TABLET PO SCH ×2 (09:16→21:18)
[2018-06-03] MEDS: lamoTRIgine 100 MG TABLET PO SCH ×2 (09:16→21:18)
[2018-06-03] MEDS: ARIPiprazole 10 MG TABLET PO SCH (09:16)
[2018-06-03] MEDS: LOSARTAN POTASSIUM 50 MG TABLET PO SCH (09:17)
[2018-06-03] MEDS: POLYETHYLENE GLYCOL 3350 119 GM BTL PO SCH (09:17)
[2018-06-03] MEDS: HYDROCHLOROTHIAZIDE 12.5 MG CAPSULE PO SCH (09:17)
[2018-06-03] MEDS: FLUTICASONE PROPIONATE 120 SPRAY INHALER NS SCH (09:17)
--- NOTE | 2018-06-03 11:57 | ANES ---
Anesthesia Pre Procedure Eval Vitals/Labs: Last Vital Signs Temp 36.6 C 06/03/18 11:45 Pulse 83 06/03/18 11:45 Resp 18 06/03/18 11:45 BP 123/74 06/03/18 11:45 Pulse Ox 94 06/03/18 11:45 HOME MEDICATIONS Esomeprazole Magnesium [Nexium] 40 mg PO DAILY 09/26/13 [Last Taken Unknown] EPINEPHrine [Epipen] 0.3 mg IJ ONCE PRN 05/01/14 [Last Taken Unknown] Calcium Carbonate/Vitamin D3 [Calcium 600-Vit D3 200 Tablet] 1 ea PO DAILY 09/25/16 [Last Taken Unknown] Cholecalciferol [Vitamin D] 1,000 unit PO DAILY 09/25/16 [Last Taken Unknown] Meclizine HCl [Antivert] 25 mg PO DAILY PRN 09/25/16 [Last Taken Unknown] Fluticasone Propionate [Flonase] 2 spray NS DAILY 05/23/17 [Last Taken 04/03/18 06:15] ascorbic acid (vitamin C) 1,000 mg tablet 1,000 mg PO DAILY tab 01/13/18 [Last Taken Unknown] levothyroxine 200 mcg tablet 300 mcg PO DAILY #30 tab 03/20/18 [Last Taken Unknown] albuterol sulfate HFA 90 mcg/actuation aerosol inhaler 2 puff IH Q6H PRN #8.5 g 03/22/18 [Last Taken 04/03/18 06:15] losartan 100 mg tablet 100 mg PO DAILY #30 tab 04/03/18 [Last Taken Unknown] diflunisal 500 mg tablet 500 mg PO BID #60 tab 04/05/18 [Last Taken Unknown] hydrochlorothiazide 12.5 mg tablet 12.5 mg PO DAILY #30 tab 04/05/18 [Last Taken Unknown] aripiprazole 30 mg tablet 15 mg PO DAILY #15 tab 04/15/18 [Last Taken Unknown] lamotrigine 150 mg tablet 150 mg PO BID #60 tab 04/15/18 [Last Taken Unknown] trazodone 100 mg tablet 200 mg PO HS PRN #60 tab 04/15/18 [Last Taken Unknown] alprazolam 2 mg tablet 2 mg PO HS #45 tab 04/30/18 [Last Taken Unknown] morphine 15 mg immediate release tablet 15 mg PO .COMPLEX PRN #40 tab 05/14/18 [Last Taken Unknown] cefdinir 300 mg capsule 300 mg PO Q12H 7 Days #14 cap 05/29/18 [Last Taken Unknown] Allergies/Adverse Reactions: Allergies Allergy/AdvReac Type Severity Reaction Status Date / Time meloxicam [From Mobic] Allergy Intermediate swelling Verified 05/29/18 16:57 in extremites benzoin Allergy Mild ITCH, Verified 05/29/18 16:57 RASH, BURNING Penicillins Allergy Mild Hives Verified 05/29/18 16:57 tizanidine [Tizanidine] AdvReac Mild dizzy, dry Verified 05/29/18 16:57 mouth oxycodone AdvReac "knocks Verified 05/29/18 16:57 her out" - Planned Procedure Planned Procedure: DRSG change Medication List Reviewed:: Yes Allergies Verified: Yes Medical History (Last Reviewed 06/03/18 @ 11:56 by Lalit Rhodes CRNA) Osteoarthritis (Chronic) Acute blood loss anemia (Acute) Bipolar affective disorder, current episode depressed (Chronic) Borderline personality disorder (Chronic) SHAHLA (obstructive sleep apnea) (Chronic) Adult BMI 45.0-49.9 kg/sq m (Chronic) Acquired hypothyroidism (Chronic) Hyperlipidemia type II (Chronic) Type IIa Osteoarthritis of left knee (Chronic) Osteoarthritis of knee (Chronic) Gastroenteritis (Chronic) Cough (Acute) Otitis media (Acute) Hypertension (Chronic) Vertigo (Chronic) Constipation (Chronic) Cellulitis (Acute) Medication adverse effect (Acute) Right shoulder injury (Acute) Sinusitis (Acute) Asthma (Chronic) Diabetes mellitus type 2 in obese (Chronic) Fibromyalgia (Chronic) Depression (Chronic) Hyperlipidemia (Chronic) Sleep apnea (Chronic) PTSD (post-traumatic stress disorder) (Chronic) Abnormal Pap smear of cervix Onset Date: ~1989 Allergic rhinitis Onset Date: Unknown Asthma Onset Date: ~08/2011 Intermittent Chronic pain syndrome Onset Date: ~04/2014 Chronic venous insufficiency Onset Date: ~11/2016 Constipation Onset Date: ~09/2015 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%, 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% Depression Onset Date: Unknown Diabetes mellitus Onset Date: Unknown Edema Onset Date: ~11/2016 Fibromyalgia Onset Date: ~09/2015 Gastroesophageal reflux Onset Date: Unknown Hepatomegaly Onset Date: ~09/2012 Hyperlipidemia Onset Date: Unknown Hypertension, essential Onset Date: Unknown Insomnia Onset Date: ~11/2016 Interstitial cystitis Onset Date: Unknown Malignant neoplasm of thyroid gland Onset Date: ~02/2010 Meniere disease Onset Date: ~03/2011 Meningioma Onset Date: ~09/2012 left parafalcine Menometrorrhagia Onset Date: Unknown Mild concentric left ventricular hypertrophy (LVH) Onset Date: ~05/2017 EF 65-70%, diastolic dysfunction, Echo, [facility], 05/25/2017 Morbid obesity Onset Date: ~09/2011 Neuropathy Onset Date: ~09/2011 SHAHLA (obstructive sleep apnea) Onset Date: ~08/2011 AHI 8.4/hr, lowest O2 sat 76%, [facility] HST, 05/03/2016 Ovarian cyst Onset Date: Unknown PTSD (post-traumatic stress disorder) Onset Date: Unknown event from childhood Rhinitis, chronic Onset Date: ~09/2015 Tinnitus Onset Date: Unknown Vertigo Onset Date: Unknown Vitamin B12 deficiency Onset Date: Unknown Surgical History (Last Reviewed 06/03/18 @ 11:56 by Lalit Rhodes CRNA) Total knee replacement status (Chronic) 04/03/18 Arianna Status post total right knee replacement (Acute) History of knee replacement procedure of right knee Onset Date: 04/03/18 S/P wrist surgery Onset Date: ~201204/10/2013, 03/2015. Venancio- Right, left wrist tendon release Colonoscopy planned Onset Date: ~04/2014 Sandrita-normal recheck 10years De Quervain's disease (tenosynovitis) Onset Date: ~03/2015 Surgery left H/O arthroscopy of shoulder Onset Date: ~09/2016 right with mini open rotator cuff repair supraspinatus and arthroscopic de bridement of the labrum- Dr Keller H/O brain surgery Onset Date: ~02/2016 Dr Cuevas, [place] H/O cervical biopsy Onset Date: Unknown cyst on cervix had a biopsy done and this was normal H/O laparoscopy Onset Date: ~2010 right s/o H/O sinus surgery Onset Date: ~2003 Dr Sullivan H/O thyroidectomy Onset Date: ~02/22, 03/25. Removed rt side initially with malignant nodule. Second surgery removed lt side H/O tubal ligation Onset Date: ~1991 History of arthroscopic knee surgery Onset Date: ~05/2014 Left knee. Chondroplasty of MFC. LFC, partial lateral meniscectomy History of carpal tunnel release Onset Date: ~2003 [place], right wrist. Revision 02/02/2016 right open carpal tunnel release per Dr Keller History of cholecystectomy Onset Date: ~2009 [place]-lap History of endometrial biopsy Onset Date: ~09/2010 Negative for malignancy History of esophagogastroduodenoscopy Onset Date: ~1995 1995, 11/26/2009-Tinguely History of incision and drainage Onset Date: ~2001 [place]ingu[place]- ABD wall abcess History of salpingo-oophorectomy Onset Date: ~2010 Right- Staudte History of total knee arthroplasty Onset Date: ~05/[address] Keller Hx of nasal septoplasty Onset Date: ~2004 Dr Sullivan Previous back surgery Onset Date: ~2006 Lumbar, Dr Cuevas S/P cervical spinal fusion Onset Date: ~07/2005 Dr Aceves, 2005, 08/03/2010, 03/04/2012 S/P epidural steroid injection Onset Date: ~2007 2007, 2009 Multiple C6-7, C7-T1 S/P right knee arthroscopy Onset Date: Unknown x 2 S/P rotator cuff repair Onset Date: ~09/2016 right- Dr Keller Tonsillectomy planned Onset Date: ~1967 Family History (Last Reviewed 06/03/18 @ 11:56 by Lalit Rhodes CRNA) Brother Hypertension Gout Daughter Hypertension Hypothyroidism Father Hypertension Heart disease Myocardial infarction Mother Hypertension Alzheimers disease TIA (transient ischemic attack) Gallbladder disease - Family Anesthesia History Family History:: no untoward family reactions to anesthesia, no familial bleeding tendencies, no family history of clotting disorders, no family history of premature - Airway/Neck/Teeth Within Normal Limits:: Yes Teeth Condition: Intact Mallampatti Score: 3 Thyromental (T-M) distance: > 6 cm Mandibulo Hyoid distance: > 3 cm - Respiratory Respiratory: lungs clear Smoking Status: Current every day smoker Discussed smoking cessation including day of surgery: No Sleep Apnea currently treated: Yes Sleep Apnea by current assessment: No Discussed Risks/Treatment of SHAHLA: No - Cardiovascular Tolerates Activity: Fair Heart Sounds: S1 & S2, Regular - Anesthesia Assessment and Plan ASA Class: PS, III Anesthesia Type Plan: MAC
[2018-06-03] MEDS: RINGER'S SOLUTION,LACTATED 1,000 ML IV PRN (14:38)
[2018-06-03] MEDS ORDERED: BUPIVACAINE HCL/EPINEPHRINE 50 ML VIAL IJ ONE (15:13)
--- NOTE | 2018-06-03 15:48 | ANES ---
Post Anesthesia Discharge - Transfer of Care Transfer of Care handoff given to nurse: Yes - Discharge to ASU Discharge to ASU-no complications/pt stable: Yes - Anesthesia Post Op Note Anesthesia Post Op Note: Discharged to M/S
--- NOTE | 2018-06-03 15:49 | ANES ---
Post Anesthesia Assessment - Vital Signs Vitals: Last Vital Signs Temp 36.6 C 06/03/18 15:44 Pulse 80 06/03/18 15:44 Resp 18 06/03/18 15:44 BP 124/58 06/03/18 15:44 Pulse Ox 99 06/03/18 15:44 Airway Patency: Normal - Mental Status Level Of Consciousness: Awake, Alert, Appropriate, Follows Commands - Pain Level Pain Score: 0 - N/V Assessment Nausea/Vomiting Presence: None Dehydration:: No - Additional Notes Comments:: No anesthesia complications.
[2018-06-03] MEDS: LEVOFLOXACIN IN DEXTROSE 5 % 750 MG/150 ML BAG IV SCH (16:56)
--- NOTE | 2018-06-03 17:42 | OR ---
Operative Report - Dictated Report Narrative: OPERATIVE REPORT DATE OF OPERATION: 06/03/2018 PREOPERATIVE DIAGNOSIS: Abscess mons pubis and right groin (MRSA positive) POSTOPERATIVE DIAGNOSIS: Same, appears stable/demarcated OPERATION: Packing change with irrigation SURGEON: Bi Remy MD ANESTHESIA: JESUS [place] CRNA INDICATIONS FOR PROCEDURE: The patient is a 53-year-old female who presented with a one-week history of a draining wound on the right side of the mons pubis. She had incision and drainage of a large abscess on 02/28/2018. Culture returned as MRSA positive today. She has had daily packing changes and is brought for same FINDINGS: No further extension of the large abscess cavity which extends from the mons pubis into the right groin and upper right thigh. NARRATIVE OF PROCEDURE: The patient was identified preoperatively and prior to the administration of anesthetic a multidisciplinary timeout was observed. With the patient supine and after the introduction of intravenous sedation the patient's pannus was retracted superiorly with Medipore tape. The old packing was removed from the wound. The right groin was then prepped with Betadine solution and isolated with sterile towels. The remainder the patient was covered with a sterile disposable drape. Digital exploration of the abscess cavity revealed it to extend from the mons pubis laterally through the right groin into the right flank and down into the right upper thigh. No additional loculations were identified. The cavity was irrigated thoroughly with 1 L of saline. The wound was then packed with an entire bottle of 2 inch iodoform gauze. A dressing of 4 x 4's, Mepilex border, and [place] tape was applied. 0.5% Marcaine with epinephrine was used for local anesthetic infiltration. All counts were correct. No specimens were submitted. The patient tolerated the anesthetic and procedure well without complication she was transferred back to the floor awake, and in stable condition. She will require return to the OR tomorrow for additional packing change and irrigation. Reviewed and electronically signed
--- NOTE | 2018-06-03 17:45 | PN ---
Dictated Progress Note - Date and Time Seen: Date: 06/03/18 Time: 17:43 - Progress Note Narrative: Vital Signs - Last Taken Temp 36.6 C 06/03/18 16:14 Pulse 92 06/03/18 16:29 Resp 20 06/03/18 16:14 BP 103/67 06/03/18 16:29 Pulse Ox 96 06/03/18 16:29 Culture 05/31/18 18:14 Abscess Culture - Final Other - Right Methicillin Resistant S.aureus 05/31/18 18:14 Abscess Culture - Final Other - Right Methicillin Resistant S.aureus 05/31/18 14:37 Blood Culture - Preliminary Blood NO GROWTH AFTER 48 HOURS 05/31/18 14:20 Blood Culture - Preliminary Blood NO GROWTH AFTER 48 HOURS Her vital signs have remained normal. The culture did return as MRSA. The bacteria is sensitive to Bactrim and vancomycin, although it is also sensitive to Levaquin. Although there is been more drainage, the abscess cavity has demarcated with no further extensions, and it appears that we can continue to care for her at this institution. The wound would be amenable to application of a wound VAC if that can be arranged. Decision was made to stop the vancomycin and start Levaquin 750 mg IV daily in addition to the Bactrim given the severity of the disease She will require return to the OR tomorrow for packing change.
[2018-06-04] MEDS: HYDROcodone/ACETAMINOPHEN 1 EACH TABLET PO PRN ×4 (03:11→19:34)
[2018-06-04] MEDS: PANTOPRAZOLE SODIUM 40 MG TABLET.EC PO SCH (06:58)
[2018-06-04] MEDS: LEVOTHYROXINE SODIUM 150 MCG TABLET PO SCH (06:58)
[2018-06-04] MEDS: LOSARTAN POTASSIUM 50 MG TABLET PO SCH (08:44)
[2018-06-04] MEDS: SULFAMETHOXAZOLE/TRIMETHOPRIM 1 TAB TABLET PO SCH ×2 (08:44→21:04)
[2018-06-04] MEDS: ARIPiprazole 10 MG TABLET PO SCH (08:44)
[2018-06-04] MEDS: FLUTICASONE PROPIONATE 120 SPRAY INHALER NS SCH (08:45)
[2018-06-04] MEDS: lamoTRIgine 100 MG TABLET PO SCH ×2 (08:45→21:05)
[2018-06-04] MEDS: POLYETHYLENE GLYCOL 3350 119 GM BTL PO SCH (08:45)
[2018-06-04] MEDS: HYDROCHLOROTHIAZIDE 12.5 MG CAPSULE PO SCH (08:45)
--- NOTE | 2018-06-04 12:39 | ANES ---
Anesthesia Pre Procedure Eval Vitals/Labs: Last Vital Signs Temp 36 C 06/04/18 11:06 Pulse 79 06/04/18 11:06 Resp 20 06/04/18 11:06 BP 122/65 06/04/18 11:06 Pulse Ox 98 06/04/18 11:06 HOME MEDICATIONS Esomeprazole Magnesium [Nexium] 40 mg PO DAILY 09/26/13 [Last Taken Unknown] EPINEPHrine [Epipen] 0.3 mg IJ ONCE PRN 05/01/14 [Last Taken Unknown] Calcium Carbonate/Vitamin D3 [Calcium 600-Vit D3 200 Tablet] 1 ea PO DAILY 09/25/16 [Last Taken Unknown] Cholecalciferol [Vitamin D] 1,000 unit PO DAILY 09/25/16 [Last Taken Unknown] Meclizine HCl [Antivert] 25 mg PO DAILY PRN 09/25/16 [Last Taken Unknown] Fluticasone Propionate [Flonase] 2 spray NS DAILY 05/23/17 [Last Taken 04/03/18 06:15] ascorbic acid (vitamin C) 1,000 mg tablet 1,000 mg PO DAILY tab 01/13/18 [Last Taken Unknown] levothyroxine 200 mcg tablet 300 mcg PO DAILY #30 tab 03/20/18 [Last Taken Unknown] albuterol sulfate HFA 90 mcg/actuation aerosol inhaler 2 puff IH Q6H PRN #8.5 g 03/22/18 [Last Taken 04/03/18 06:15] losartan 100 mg tablet 100 mg PO DAILY #30 tab 04/03/18 [Last Taken Unknown] diflunisal 500 mg tablet 500 mg PO BID #60 tab 04/05/18 [Last Taken Unknown] hydrochlorothiazide 12.5 mg tablet 12.5 mg PO DAILY #30 tab 04/05/18 [Last Taken Unknown] aripiprazole 30 mg tablet 15 mg PO DAILY #15 tab 04/15/18 [Last Taken Unknown] lamotrigine 150 mg tablet 150 mg PO BID #60 tab 04/15/18 [Last Taken Unknown] trazodone 100 mg tablet 200 mg PO HS PRN #60 tab 04/15/18 [Last Taken Unknown] alprazolam 2 mg tablet 2 mg PO HS #45 tab 04/30/18 [Last Taken Unknown] morphine 15 mg immediate release tablet 15 mg PO .COMPLEX PRN #40 tab 05/14/18 [Last Taken Unknown] cefdinir 300 mg capsule 300 mg PO Q12H 7 Days #14 cap 05/29/18 [Last Taken Unknown] Allergies/Adverse Reactions: Allergies Allergy/AdvReac Type Severity Reaction Status Date / Time meloxicam [From Mobic] Allergy Intermediate swelling Verified 05/29/18 16:57 in extremites benzoin Allergy Mild ITCH, Verified 05/29/18 16:57 RASH, BURNING Penicillins Allergy Mild Hives Verified 05/29/18 16:57 tizanidine [Tizanidine] AdvReac Mild dizzy, dry Verified 05/29/18 16:57 mouth oxycodone AdvReac "knocks Verified 05/29/18 16:57 her out" - Planned Procedure Planned Procedure: DRSG change Medication List Reviewed:: Yes Allergies Verified: Yes Medical History (Last Reviewed 06/04/18 @ 12:39 by Lalit Rhodes CRNA) Osteoarthritis (Chronic) Acute blood loss anemia (Acute) Bipolar affective disorder, current episode depressed (Chronic) Borderline personality disorder (Chronic) SHAHLA (obstructive sleep apnea) (Chronic) Adult BMI 45.0-49.9 kg/sq m (Chronic) Acquired hypothyroidism (Chronic) Hyperlipidemia type II (Chronic) Type IIa Osteoarthritis of left knee (Chronic) Osteoarthritis of knee (Chronic) Gastroenteritis (Chronic) Cough (Acute) Otitis media (Acute) Hypertension (Chronic) Vertigo (Chronic) Constipation (Chronic) Cellulitis (Acute) Medication adverse effect (Acute) Right shoulder injury (Acute) Sinusitis (Acute) Asthma (Chronic) Diabetes mellitus type 2 in obese (Chronic) Fibromyalgia (Chronic) Depression (Chronic) Hyperlipidemia (Chronic) Sleep apnea (Chronic) PTSD (post-traumatic stress disorder) (Chronic) Abnormal Pap smear of cervix Onset Date: ~1989 Allergic rhinitis Onset Date: Unknown Asthma Onset Date: ~08/2011 Intermittent Chronic pain syndrome Onset Date: ~04/2014 Chronic venous insufficiency Onset Date: ~11/2016 Constipation Onset Date: ~09/2015 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%, 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% Depression Onset Date: Unknown Diabetes mellitus Onset Date: Unknown Edema Onset Date: ~11/2016 Fibromyalgia Onset Date: ~09/2015 Gastroesophageal reflux Onset Date: Unknown Hepatomegaly Onset Date: ~09/2012 Hyperlipidemia Onset Date: Unknown Hypertension, essential Onset Date: Unknown Insomnia Onset Date: ~11/2016 Interstitial cystitis Onset Date: Unknown Malignant neoplasm of thyroid gland Onset Date: ~02/2010 Meniere disease Onset Date: ~03/2011 Meningioma Onset Date: ~09/2012 left parafalcine Menometrorrhagia Onset Date: Unknown Mild concentric left ventricular hypertrophy (LVH) Onset Date: ~05/2017 EF 65-70%, diastolic dysfunction, Echo, [facility], 05/25/2017 Morbid obesity Onset Date: ~09/2011 Neuropathy Onset Date: ~09/2011 SHAHLA (obstructive sleep apnea) Onset Date: ~08/2011 AHI 8.4/hr, lowest O2 sat 76%, [facility] HST, 05/03/2016 Ovarian cyst Onset Date: Unknown PTSD (post-traumatic stress disorder) Onset Date: Unknown event from childhood Rhinitis, chronic Onset Date: ~09/2015 Tinnitus Onset Date: Unknown Vertigo Onset Date: Unknown Vitamin B12 deficiency Onset Date: Unknown Surgical History (Last Reviewed 06/04/18 @ 12:39 by Lalit Rhodes CRNA) Total knee replacement status (Chronic) 04/03/18 Arianna Status post total right knee replacement (Acute) History of knee replacement procedure of right knee Onset Date: 04/03/18 S/P wrist surgery Onset Date: ~201204/10/2013, 03/2015. Venancio- Right, left wrist tendon release Colonoscopy planned Onset Date: ~04/2014 Sandrita-normal recheck 10years De Quervain's disease (tenosynovitis) Onset Date: ~03/2015 Surgery left H/O arthroscopy of shoulder Onset Date: ~09/2016 right with mini open rotator cuff repair supraspinatus and arthroscopic debr idement of the labrum- Dr Keller H/O brain surgery Onset Date: ~02/2016 Dr Cuevas, [place] H/O cervical biopsy Onset Date: Unknown cyst on cervix had a biopsy done and this was normal H/O laparoscopy Onset Date: ~2010 right s/o H/O sinus surgery Onset Date: ~2003 Dr Sullivan H/O thyroidectomy Onset Date: ~02/22, 03/25. Removed rt side initially with malignant nodule. Second surgery removed lt side H/O tubal ligation Onset Date: ~1991 History of arthroscopic knee surgery Onset Date: ~05/2014 Left knee. Chondroplasty of MFC. LFC, partial lateral meniscectomy History of carpal tunnel release Onset Date: ~2003 [place], right wrist. Revision 02/02/2016 right open carpal tunnel release per Dr Keller History of cholecystectomy Onset Date: ~2009 [place]-lap History of endometrial biopsy Onset Date: ~09/2010 Negative for malignancy History of esophagogastroduodenoscopy Onset Date: ~1995 1995, 11/26/2009-[place] History of incision and drainage Onset Date: ~2001 [place]- ABD wall abcess History of salpingo-oophorectomy Onset Date: ~2010 Right- [place] History of total knee arthroplasty Onset Date: ~05/[address] Keller Hx of nasal septoplasty Onset Date: ~2004 Dr Sullivan Previous back surgery Onset Date: ~2006 Lumbar, Dr Cuevas S/P cervical spinal fusion Onset Date: ~07/2005 Dr Aceves, 2005, 08/03/2010, 03/04/2012 S/P epidural steroid injection Onset Date: ~2007 2007, 2009 Multiple C6-7, C7-T1 S/P right knee arthroscopy Onset Date: Unknown x 2 S/P rotator cuff repair Onset Date: ~09/2016 right- Dr Keller Tonsillectomy planned Onset Date: ~1967 Family History (Last Reviewed 06/04/18 @ 12:39 by Lalit Rhodes CRNA) Brother Hypertension Gout Daughter Hypertension Hypothyroidism Father Hypertension Heart disease Myocardial infarction Mother Hypertension Alzheimers disease TIA (transient ischemic attack) Gallbladder disease - Family Anesthesia History Family History:: no untoward family reactions to anesthesia, no familial bleeding tendencies, no family history of clotting disorders, no family history of premature - Airway/Neck/Teeth Within Normal Limits:: Yes Mallampatti Score: 3 Thyromental (T-M) distance: > 6 cm Mandibulo Hyoid distance: > 3 cm - Respiratory Respiratory: lungs clear Smoking Status: Current every day smoker Discussed smoking cessation including day of surgery: No Sleep Apnea currently treated: Yes Sleep Apnea by current assessment: No Discussed Risks/Treatment of SHAHLA: No - Cardiovascular Tolerates Activity: Fair Heart Sounds: S1 & S2, Regular - Anesthesia Assessment and Plan ASA Class: PS, III Anesthesia Type Plan: MAC
[2018-06-04] MEDS: RINGER'S SOLUTION,LACTATED 1,000 ML IV PRN (12:50)
[2018-06-04] MEDS ORDERED: BUPIVACAINE HCL 50 ML VIAL IJ ONE (13:12)
--- NOTE | 2018-06-04 13:38 | ANES ---
Post Anesthesia Assessment - Vital Signs Vitals: Last Vital Signs Temp 36 C 06/04/18 11:06 Pulse 79 06/04/18 11:06 Resp 20 06/04/18 11:06 BP 122/65 06/04/18 11:06 Pulse Ox 98 06/04/18 11:06 Airway Patency: Normal - Mental Status Level Of Consciousness: Awake - Pain Level Pain Score: 0 - N/V Assessment Nausea/Vomiting Presence: None Dehydration:: No
--- NOTE | 2018-06-04 13:49 | OR ---
Operative Report - Dictated Report Narrative: OPERATIVE REPORT DATE OF OPERATION: 06/04/2018 PREOPERATIVE DIAGNOSIS: Abscess right groin POSTOPERATIVE DIAGNOSIS: Same (improved) OPERATION: Packing change and irrigation right groin abscess SURGEON: Bi Remy MD ANESTHESIA: MAC/local Lalit Rhodes CRNA INDICATIONS FOR PROCEDURE: The patient is a 53-year-old female with an MRSA positive abscess of the mons pubis, right groin and right upper thigh. This is been managed with initial incision and drainage and daily packing changes. She is currently receiving Bactrim DS and Levaquin as indicated by sensitivities FINDINGS: Large abscess extending from the mons pubis through the right groin and into the right upper thigh with no extension NARRATIVE OF PROCEDURE: The patient was identified preoperatively and prior to the administration of anesthetic multidisciplinary timeout was observed. With the patient supine and after the introduction of intravenous sedation the previous dressing and packing were removed. The wound was prepped with Betadine and isolated with 4 sterile towels. The remainder the patient was covered with a sterile disposable drape. The abscess cavity was irrigated thoroughly with saline and digitally explored. The cavity was found to be mature with no extensions in the beginning of granulation tissue. A new packing of 2 inch iodoform gauze was placed with a 4 x 4, Mepilex border, Medipore tape dressing. There was no measurable blood loss. 0.5% Marcaine was used for local anesthetic infiltration. No specimens were submitted. The patient tolerated the anesthetic and procedure well without complication. She was transferred back to the floor awake and in stable condition. Plan at this time is for an additional return to the OR tomorrow for placement of a wound VAC Reviewed and electronically signed
[2018-06-04] MEDS: LEVOFLOXACIN IN DEXTROSE 5 % 750 MG/150 ML BAG IV SCH (16:05)
--- NOTE | 2018-06-04 17:14 | PN ---
Dictated Progress Note - Date and Time Seen: Date: 06/04/18 Time: 17:10 - Progress Note Narrative: Vital Signs - Last Taken Temp 36.9 C 06/04/18 13:35 Pulse 77 06/04/18 14:15 Resp 15 06/04/18 14:15 BP 100/45 06/04/18 14:15 Pulse Ox 100 06/04/18 14:15 VS have been normal. More drainage last night, however the inflammation/erythema is much improved. there is still a 3cm area of induration in the medial thigh, but not fluctuant. The abscess cavity is demarcated without further extension. Was repacked today. Wound Vac has been ordered from [facility] and the plan is to apply that tomorrow with the dressing change in OR. She could then go home and be followed through the [facility].
[2018-06-05] MEDS: LEVOTHYROXINE SODIUM 150 MCG TABLET PO SCH (07:23)
[2018-06-05] MEDS: PANTOPRAZOLE SODIUM 40 MG TABLET.EC PO SCH (07:23)
[2018-06-05] MEDS: HYDROCHLOROTHIAZIDE 12.5 MG CAPSULE PO SCH (09:48)
[2018-06-05] MEDS: SULFAMETHOXAZOLE/TRIMETHOPRIM 1 TAB TABLET PO SCH (09:48)
[2018-06-05] MEDS: LOSARTAN POTASSIUM 50 MG TABLET PO SCH ×2 (09:48→09:51)
[2018-06-05] MEDS: ARIPiprazole 10 MG TABLET PO SCH ×2 (09:49→09:50)
[2018-06-05] MEDS: lamoTRIgine 100 MG TABLET PO SCH (09:49)
[2018-06-05] MEDS: POLYETHYLENE GLYCOL 3350 119 GM BTL PO SCH (09:49)
[2018-06-05] MEDS: FLUTICASONE PROPIONATE 120 SPRAY INHALER NS SCH (09:50)
[2018-06-05] MEDS ORDERED: BUPIVACAINE HCL/PF 30 ML VIAL IJ ONE (11:49)
--- NOTE | 2018-06-05 15:52 | DS ---
(1) Abscess Problem: Acute Description of Stay: She presented with a draining abscess on the mons pubis. She underwent I&D which revealed extension into the right groin and right upper thigh. She was started empirically on po Bactrim and IV Vancomycin because of suspicion for MRSA. The MRSA proved susceptible to Levaquin so this was added and the Vanco mycin D/C'd. She was returned to the OR daily for packing changes until the cavity demarcated and a wound vac could be obtained and placed on 06/05/18. she is discharged home on her usual meds with Rx for Hydrocodone/Acetamin and Bactrim DS She was instructed in wound vac care. She will return to Ambulatory Surgery on 06/07/18 for wound vac change Procedures Performed: see notes below - Initial I&D 05/31/18 with daily packing changes and wound vac application on 06/05/18 Results and Findings: Lab Pending Results 05/31/18 14:02: WBC 19.7 H, RBC 4.53, Hgb 12.7, Hct 38.4, MCV 84.8, MCH 28.0, MCHC 33.1, RDW 12.6, Plt Count 361, MPV 9.7, Immature Gran % (Auto) 0.60 H, Immature Gran # (Auto) 0.11 H, Neutrophils % 83.7 H, Lymphocytes % 8.9 L, Monocytes % 4.4, Eosinophils % 2.2, Basophils % 0.2, Nucleated RBC % 0.0, Neutrophils # 16.5 H, Lymphocytes # 1.76, Monocytes # 0.9, Eosinophils # 0.4, Absolute Basophils 0.0 05/31/18 14:02: Sodium 133, Plasma Sodium 135, Potassium 3.3 L D, Chloride 94 L, Carbon Dioxide 31.5, Anion Gap 10.8, BUN 19, Creatinine 1.20, Est GFR (Non-Af Amer) 50 L D, BUN/Creatinine Ratio 15.8, Random Glucose 195 H, Calcium 8.8, Calcium Adj for Albumin 9.8, Total Bilirubin 0.4, AST 32, ALT 57, Alkaline Phosphatase 137, C-Reactive Prot, Quant 34.8 H, Total Protein 7.8, Albumin 2.4 L 05/31/18 14:02: ESR 107 H 06/01/18 07:41: WBC 15.7 H D, RBC 4.05 L, Hgb 11.3 L, Hct 35.0 L, MCV 86.4, MCH 27.9, MCHC 32.3, RDW 13.0, Plt Count 341, MPV 9.6, Immature Gran % (Auto) 0.80 H, Immature Gran # (Auto) 0.12 H, Neutrophils % 72.1, Lymphocytes % 16.2 L, Monocytes % 6.3, Eosinophils % 4.3 H, Basophils % 0.3, Nucleated RBC % 0.0, Neutrophils # 11.3 H, Lymphocytes # 2.54, Monocytes # 1.0, Eosinophils # 0.7, Absolute Basophils 0.0 Discharge Location: Home Disposition: Home self-care Condition: Good Discharge Activity: Activity as tolerated Discharge Diet: Consistent carbs Referrals: Santiago Dougherty MD [Primary Care Provider] - Additional Patient Instructions (free text): Please arrive at the ED on Sunday at 7am. They will take you to ambulatory surgery. Nothing by mouth after midnight prior to surgery. Bring a truck driver salesperson. Prescriptions (Any new or edited meds): Sulfamethoxazole/Trimethoprim [Bactrim Ds] 2 tab PO BID #28 tablet HYDROcodone/ACETAMINOPHEN [[place] 5-325] 1 ea PO Q4H PRN #30 tab PRN Reason: Pain Complete Home Medications List: Complete Home Medication List: Esomeprazole Magnesium [Nexium] 40 mg PO DAILY 09/26/13 EPINEPHrine [Epipen] 0.3 mg IJ ONCE PRN 05/01/14 Calcium Carbonate/Vitamin D3 [Calcium 600-Vit D3 200 Tablet] 1 ea PO DAILY 09/25/16 Cholecalciferol [Vitamin D] 1,000 unit PO DAILY 09/25/16 Meclizine HCl [Antivert] 25 mg PO DAILY PRN 09/25/16 Fluticasone Propionate [Flonase] 2 spray NS DAILY 05/23/17 ascorbic acid (vitamin C) 1,000 mg tablet 1,000 mg PO DAILY tab 01/13/18 levothyroxine 200 mcg tablet 300 mcg PO DAILY #30 tab 03/20/18 albuterol sulfate HFA 90 mcg/actuation aerosol inhaler 2 puff IH Q6H PRN #8.5 g 03/22/18 losartan 100 mg tablet 100 mg PO DAILY #30 tab 04/03/18 diflunisal 500 mg tablet 500 mg PO BID #60 tab 04/05/18 hydrochlorothiazide 12.5 mg tablet 12.5 mg PO DAILY #30 tab 04/05/18 aripiprazole 30 mg tablet 15 mg PO DAILY #15 tab 04/15/18 lamotrigine 150 mg tablet 150 mg PO BID #60 tab 04/15/18 trazodone 100 mg tablet 200 mg PO HS PRN #60 tab 04/15/18 alprazolam 2 mg tablet 2 mg PO HS #45 tab 04/30/18 morphine 15 mg immediate release tablet 15 mg PO .COMPLEX PRN #40 tab 05/14/18 HYDROcodone/ACETAMINOPHEN [[place] 5-325] 1 ea PO Q4H PRN #30 tab 06/05/18 Sulfamethoxazole/Trimethoprim [Bactrim Ds] 2 tab PO BID #28 tablet 06/05/18
[2018-06-05 16:14] VITALS: BP 118/59
--- NOTE | 2018-06-05 18:06 | OR ---
Operative Report - Dictated Report Narrative: OPERATIVE REPORT DATE OF OPERATION: 06/05/2018 PREOPERATIVE DIAGNOSIS: MRSA abscess of the mons pubis, right groin, and right upper thigh POSTOPERATIVE DIAGNOSIS: Same OPERATION: Irrigation of abscess with placement of wound VAC SURGEON: Bi Remy MD ANESTHESIA: JESUS Nunez CRNA INDICATIONS FOR PROCEDURE: The patient is a 53-year-old female who presented on 05/31/2018 with a draining abscess on the mons pubis. This was initially incised and drained with packing placement. Cultures grew MRSA. She has been returned to the operating room daily for packing changes, and she is brought today for wound VAC application FINDINGS: central incision 10 cm long x 1 cm wide x 3 cm deep 3:00 tunneling of 4 cm, 9:00 tunneling 6 cm, 6:00 tunneling of 7 cm NARRATIVE OF PROCEDURE: The patient was identified preoperatively and prior to the administration of anesthetic a multidisciplinary timeout was observed. With the patient in the supine position and after the administration of intravenous sedation the patient's abdominal pannus was taped for retraction. The old dressing and packing were removed and the right groin prepped with Betadine solution and isolated with sterile drapes. The remainder of the patient was covered with sterile disposable drapes. The wound cavity was digitally explored and found to be mature. The cavity was irrigated with saline until the return was clear. [place] granufoam was tailored and placed in the abscess cavity. An occlusive dressing and wound VAC suction were then connected. The wound VAC was activated and the suction seal was seen to be good. The operative procedure was terminated at this point. The patient tolerated the anesthetic and procedure well without complication. All counts were correct. No specimens were submitted. There was no measurable blood loss. She was transferred back to the floor awake and in stable condition. Plan at this time is to discharge the patient home with return to ambulatory surgery on 06/07/2018 for wound VAC change with anesthesia Reviewed and electronically signed
== END 2018-06-05 17:00 | disposition home or self-care (01) | DRG 603 ==
LOC: ER 13:07 → AMB 16:52 → MS 18:01
PROVIDERS: ADMIT Family Medicine; ATTEND Surgery
CPT/HCPCS: 36415; 72193; 80053; 85025; 85652; 86140; 87040; 87070; 87077; 87186; 99285

== ENCOUNTER 2019-12-23 11:33 | Observation (INO) ==
[2019-12-23] MEDS ORDERED: diphenhydrAMINE HCL 50 MG/ML VIAL IV ONE (11:45)
[2019-12-23] MEDS ORDERED: DICYCLOMINE HCL 10 MG/ML AMPUL IM ONE (11:47)
[2019-12-23] MEDS ORDERED: PROCHLORPERAZINE EDISYLATE 5 MG/ML VIAL IV ONE (11:47)
[2019-12-23] MEDS ORDERED: NORMAL SALINE 1,000 ML IV ONE ×3 (11:48→17:24)
[2019-12-23 12:08] LABS: Urine Bilirubin 1 mg/dl (NEGATIVE); Urine Blood Negative /ul (NEGATIVE); Urine Ketone Negative (NEGATIVE); Urine Nitrite Negative (NEGATIVE); Urine Protein 100 mg/dL (NEGATIVE); Urine Specific Gravity >=1.030 SP.GR. (1.005-1.010); Urine Urobilinogen Normal (NORMAL); Urine pH 5.5 pH (5.0-7.0)
--- NOTE | 2019-12-23 12:08 | ERNOTE ---
Abdominal HPI - Narrative Date of Service: 12/23/19 - General Chief Complaint: Abdominal Pain Time Seen by Provider: 12/23/19 11:36 Source: patient Exam Limitations: no limitations - Immun/Allergies/Home Medications Immunizatons: IMMUNIZATION HX Immunizations Up to Date Yes History of Influenza Vaccine Yes Hx Pneumococcal Vaccination No Allergies/Adverse Reactions: Allergies meloxicam [From Mobic] Allergy (Intermediate, Verified 12/23/19 11:36) swelling in extremites oxycodone Allergy (Intermediate, Verified 12/23/19 11:36) "knocks her out" "knocks her out" benzoin Allergy (Mild, Verified 12/23/19 11:36) ITCH, RASH, BURNING gabapentin Allergy (Mild, Verified 12/23/19 11:36) 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 Penicillins Allergy (Mild, Verified 12/23/19 11:36) Hives alcohol [From Mastisol Liquid Adhesive] Allergy (Verified 12/23/19 11:36) rash gum mastic [From Mastisol Liquid Adhesive] Allergy (Verified 12/23/19 11:36) rash methyl salicylate [From Mastisol Liquid Adhesive] Allergy (Verified 12/23/19 11:36) rash storax [From Mastisol Liquid Adhesive] Allergy (Verified 12/23/19 11:36) rash tizanidine [Tizanidine] Adverse Reaction (Mild, Verified 12/23/19 11:36) dizzy, dry mouth Home Medications: HOME MEDICATIONS ascorbic acid (vitamin C) 1,000 mg tablet 1,000 mg PO DAILY tab 01/13/18 [Last Taken Unknown] Nystatin 1 gm TOPICAL DAILY PRN #1 powder 07/22/18 [Last Taken Unknown] losartan 100 mg tablet 100 mg PO DAILY #90 tab 01/01/19 [Last Taken Unknown] esomeprazole magnesium 40 mg capsule,delayed release 40 mg PO DAILY #90 cap 06/02/19 [Last Taken Unknown] rosuvastatin 5 mg tablet 5 mg PO DAILY #30 tab 06/27/19 [Last Taken Unknown] diclofenac sodium 1 % topical gel 2 g TOPICAL HS #100 g 09/30/19 [Last Taken Unknown] propranolol 120 mg capsule,24 hr,extended release 120 mg PO HS #30 cap 09/30/19 [Last Taken Unknown] pregabalin 75 mg capsule 150 mg PO BID #120 cap 10/14/19 [Last Taken Unknown] alprazolam 2 mg tablet 2 mg PO BID PRN #60 tab 10/27/19 [Last Taken Unknown] brexpiprazole 3 mg tablet 3 mg PO HS #30 tab 10/27/19 [Last Taken Unknown] buspirone 10 mg tablet 10 mg PO TID #90 tab 10/27/19 [Last Taken Unknown] duloxetine 60 mg capsule,delayed release 120 mg PO HS #60 cap 10/27/19 [Last Taken Unknown] lamotrigine 150 mg tablet 150 mg PO BID #60 tab 10/27/19 [Last Taken Unknown] ropinirole 2 mg tablet 2 mg PO HS #30 tab 10/27/19 [Last Taken Unknown] trazodone 100 mg tablet 200 mg PO HS PRN #60 tab 10/27/19 [Last Taken Unknown] levothyroxine 125 mcg tablet 125 mcg PO DAILY #90 tab 11/11/19 [Last Taken Unknown] levothyroxine 200 mcg tablet 200 mcg PO DAILY #90 tab 11/11/19 [Last Taken Unknown] - History of Present Illness Narrative: Patient presents to the ED for abdominal pain. She relates frequent abdominal pains but this has really come on since last night. Started in RLQ and has now moved to RUQ. Nausea and feels like she id going to vomit but no emesis. Some non-bloody diarrhea. No CP or SOB. No fever. Has not seen anyone for this. No dysuria. Timing: constant, getting worse Quality: severe Activities at Onset: none Modifying Factors - (Improves): Present: other - nothing Modifying Factors - (Worsens): Present: other - palpation Associated Symptoms: Absent: headache, chest pain, diarrhea-gross blood, fever/chills, shortness of breath Prior Abdominal Problems: Absent: similar symptoms Prior Treatment: Absent: recently seen Review of Systems - Review of Systems Constitutional: Absent: fever EYE: Present: no symptoms reported ENT: Present: no symptoms reported Respiratory: Absent: shortness of breath Cardiology: Absent: chest pain Gastrointestinal/Abdominal: Present: See HPI Genitourinary: Absent: dysuria Musculoskeletal: Present: other - chronic, no acute Sx Neurological: Absent: weakness All Other Systems: All systems neg except as marked Medical History (Last Reviewed 12/23/19 @ 12:06 by Joel Gorsch, MD) Cervical radiculopathy (Chronic) Left arm and hand Essential hypertension (Chronic) Failed back syndrome of cervical spine (Chronic) Major depression (Chronic) Abscess (Acute) Osteoarthritis (Chronic) Bipolar affective disorder, current episode depressed (Chronic) Borderline personality disorder (Chronic) SHAHLA (obstructive sleep apnea) (Chronic) Acquired hypothyroidism (Chronic) Hyperlipidemia type II (Chronic) Type IIa Constipation (Chronic) Asthma (Chronic) Fibromyalgia (Chronic) Stable Abnormal Pap smear of cervix Onset Date: ~1989 Allergic rhinitis Onset Date: Unknown Asthma Onset Date: ~08/2011 Intermittent Chronic pain syndrome Onset Date: ~04/2014 Chronic venous insufficiency Onset Date: ~11/2016 Constipation Onset Date: ~09/2015 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%, left ear 20% Depression Onset Date: Unknown Diabetes mellitus Onset Date: Unknown Edema Onset Date: ~11/2016 Fibromyalgia Onset Date: ~09/2015 Gastroesophageal reflux Onset Date: Unknown Hepatomegaly Onset Date: ~09/2012 Hyperlipidemia Onset Date: Unknown Hypertension, essential Onset Date: Unknown Insomnia Onset Date: ~11/2016 Interstitial cystitis Onset Date: Unknown MRSA (methicillin resistant staph aureus) culture positive Onset Date: 05/31/18 rt groin requiring surgery and wound vac, ATB Malignant neoplasm of thyroid gland Onset Date: ~02/2010 Meniere disease Onset Date: ~03/2011 Meningioma Onset Date: ~09/2012 left parafalcine Menometrorrhagia Onset Date: Unknown Mild concentric left ventricular hypertrophy (LVH) Onset Date: ~05/2017 EF 65-70%, diastolic dysfunction, Echo, [facility], 05/25/2017 Morbid obesity Onset Date: ~09/2011 Neuropathy Onset Date: ~09/2011 SHAHLA (obstructive sleep apnea) Onset Date: ~08/2011 AHI 8.4/hr, lowest O2 sat 76%, [facility] HST, 05/03/2016 Ovarian cyst Onset Date: Unknown PTSD (post-traumatic stress disorder) Onset Date: Unknown event from childhood Rhinitis, chronic Onset Date: ~09/2015 Tinnitus Onset Date: Unknown Vertigo Onset Date: Unknown Vitamin B12 deficiency Onset Date: Unknown Cough (Resolved) Depression (Resolved) Gastroenteritis (Resolved) Has received influenza vaccination in current influenza season (Resolved) Onset Date: ~08/19/18 Hyperlipidemia (Resolved) Hypertension (Resolved) Otitis media (Resolved) PTSD (post-traumatic stress disorder) (Resolved) Sleep apnea (Resolved) Cellulitis (Inactive) Sinusitis (Inactive) Vertigo (Inactive) Surgical History: Surgical History (Last Reviewed 12/23/19 @ 12:06 by Joel Parada MD) Total knee replacement status (Chronic) 04/03/18 Arianna Status post total right knee replacement (Chronic) 06/04/17 Arianna History of knee replacement procedure of right knee Onset Date: 04/03/18 S/P arthroscopy of right shoulder Onset Date: 07/07/19 Right shoulder arthroscopy with revision mini open rotator cuff repair of the supraspinatus tendon, biceps tenotomy, labral debridement, Júnior procedure- Dr. Keller S/P wrist surgery Onset Date: ~201204/10/2013, 03/2015. Venancio- Right, left wrist tendon release Colonoscopy planned Onset Date: ~04/2014 Sandrita-normal recheck 10years De Quervain's disease (tenosynovitis) Onset Date: ~03/2015 Surgery left H/O arthroscopy of shoulder Onset Date: ~09/2016 right with mini open rotator cuff repair supraspinatus and arthroscopic debridement of the labrum- Dr Keller H/O brain surgery Onset Date: ~02/2016 Dr Cuevas, [place] H/O cervical biopsy Onset Date: Unknown cyst on cervix had a biopsy done and this was normal H/O dilation and curettage Onset Date: ~1985 miscarriages in 1984 and 1985 H/O laparoscopy Onset Date: ~2010 right s/o H/O sinus surgery Onset Date: ~2003 Dr Sullivan H/O thyroidectomy Onset Date: ~02/22, 03/25. Removed rt side initially with malignant nodule. Second surgery removed lt side H/O tubal ligation Onset Date: ~1991 History of arthroscopic knee surgery Onset Date: ~05/2014 Left knee. Chondroplasty of MFC. LFC, partial lateral meniscectomy History of carpal tunnel release Onset Date: ~2003 Bryce, right wrist. Revision 02/02/2016 right open carpal tunnel release per Dr Keller History of cholecystectomy Onset Date: ~2009 [facility] History of endometrial biopsy Onset Date: ~09/2010 Negative for malignancy History of esophagogastroduodenoscopy Onset Date: ~1995 1995, 11/26/2009-[facility] History of incision and drainage Onset Date: ~2001 Xavier- ABD wall abcess History of salpingo-oophorectomy Onset Date: ~2010 Right- [place] History of total knee arthroplasty Onset Date: ~05/[address] Keller Hx of nasal septoplasty Onset Date: ~2004 Dr Sullivan Previous back surgery Onset Date: ~2006 Lumbar, Dr Cuevas S/P cervical spinal fusion Onset Date: ~07/2005 Dr Aceves, 2006, 08/03/2010, 03/04/2012 S/P epidural steroid injection Onset Date: ~2007 2007, 2009 Multiple C6-7, C7-T1 S/P right knee arthroscopy Onset Date: Unknown x 2 S/P rotator cuff repair Onset Date: ~09/2016 right- Dr Keller Tonsillectomy planned Onset Date: ~1967 Family History: Family History (Last Reviewed 12/23/19 @ 12:06 by Joel Parada MD) Brother Hypertension Gout Daughter Hypertension Hypothyroidism Father Hypertension Heart disease Myocardial infarction Mother Hypertension Alzheimers disease TIA (transient ischemic attack) Gallbladder disease Social History: (Last Reviewed 12/23/19 @ 12:06 by Joel Parada MD) Social History: retirement: No Marital status: Single household members: friend(s) number of children: 3 current occupational status: disabled Highest education level completed: high school graduate Service: No Tobacco: Smoking Status: Current every day smoker tobacco type: cigarettes Smoking cigarettes per day: 6 Alcohol: alcohol intake: current Alcohol type: wine, hard liquor alcohol intake frequency: holiday/special occasion details: 2-3 drinks occasionally Substance Use: substance use type: does not use Dietary Habits: caffeine: Yes caffeine comment: rare Type: carbonated beverages Exercise: Physical activity functional status: normal ROM and activity frequency: does not exercise Physical Exam - Physical Exam General Appearance: Present: alert, no apparent distress Head Exam: Present: normal inspection, no evidence of injury Eye Exam: Normal inspection: bilateral, PERRL: bilateral Ears, Nose, Throat: Present: normal ENT inspection Neck: Present: normal inspection Respiratory: Present: no respiratory distress, normal breath sounds, no accessory muscle use, lungs clear Cardiovascular/Chest: Present: regular rate, rhythm, normal peripheral pulses Gastrointestinal/Abdominal: Present: normal bowel sounds, soft, other - Tenderness diffuse right abdomen, more RUQ than RLQ. No peritoneal signs. No guarding or rebound. Back Exam: Absent: CVA tenderness (R), CVA tenderness (L) Extremity Exam: Present: non-tender, other - no deformity Neurological Exam: Present: alert, no motor/sensory deficits Skin Exam: Present: normal color, warm/dry Progress - Results and Orders Patient's Lab Results:: I have reviewed the patient's lab results. - Vital Signs Patient's Vital Signs:: I have reviewed the patient's vital signs. Vital Signs: Vital Signs 12/23/19 11:36 Temperature 36.1 C Pulse Rate 102 H Respiratory Rate 20 Blood Pressure 136/77 O2 Sat by Pulse Oximetry 95 - CT/Ultrasound CT/Ultrasound Narrative: I reviewed official radiology report for CT ABD/Pelvis - Progress/Reassessment Chief Complaint: Abdominal Pain Progress Note-Subjective: 12/23/19 17:24 Patient given Protonix, repeated doses of Fentanyl and IV ABx. D/W Dr Remy who saw the patient in the ED. Please see his note, patient will be admitted to hospital. I discussed the case with Dr Smith who will admit with Dr Remy consulting. Departure Clinical Impression: Abdominal pain, Abnormal CT of the abdomen, Intractable pain - Departure Disposition: Still a patient Condition: Fair Referrals: Santiago Dougherty MD [Primary Care Provider] -
[2019-12-23 12:16] LABS: Hemoglobin 13.4 gm/dL (12.5-16.0); Mean Cell Volume 88.2 fl (78-100); Mean Corpuscular Hemoglobin 28.8 pg (27-31); Mean Corpuscular Hgb Conc 32.7 g/dl (32-36); Mean Platelet Volume 9.3 fl (8-12.5); Neutrophil # 11.8 K/mm3 (1.3-6.0); Neutrophil % 84.3 % (42-75.0); Platelet Count 362 K/mm3 (150-450); Red Blood Count 4.65 M/mm3 (4.2-5.4); Red Cell Distribution Width 14.2 % (11.5-14.0); White Blood Count 13.9 K/mm3 (4.0-10.5)
[2019-12-23 12:18] LABS: Urine Appearance Clear (CLEAR); Urine Bacteria None Seen; Urine Color Dark Yellow; Urine RBC None Seen /hpf (0-5); Urine WBC 0-5 /hpf (0-5)
[2019-12-23 12:33] LABS: Albumin * 3.3 gm/dl (3.4-5.0); Anion Gap 12.1 mmol/L (6.8-13.8); BUN/Creatinine Ratio 9.4 (9.0-21.6); Bilirubin, Total 0.5 mg/dL (0.0-1.1); Calcium * 8.8 mg/dL (7.9-10.9); Carbon Dioxide 29.7 mmol/L (24-32.6); Potassium 3.8 mmol/L (3.4-4.6); Total Protein 7.5 gm/dL (6.2-8.2)
[2019-12-23] MEDS ORDERED: DIATRIZOATE MEGLUMINE, SODIUM 30 ML BTL PO ONE (12:47)
[2019-12-23] MEDS ORDERED: fentaNYL CITRATE/PF 50 MCG/ML AMPUL IV ONE ×3 (15:12→17:16)
[2019-12-23] MEDS ORDERED: PANTOPRAZOLE SODIUM 40 MG/100 ML PIGGYBACK IV ONE (17:09)
[2019-12-23] MEDS ORDERED: metroNIDAZOLE/SODIUM CHLORIDE 500 MG/100 ML BAG IV SCH (17:30)
[2019-12-23] MEDS ORDERED: LEVOFLOXACIN IN DEXTROSE 5 % 500 MG/100 ML BAG IV SCH (17:30)
--- NOTE | 2019-12-23 18:07 | HP ---
Chief Complaint - Chief Complaint Date of Service: 12/23/19 Time of Service: 15:29 Chief Complaint: Abdominal pain and nausea x2 days History of Present Illness: 54-year-old female with a past medical history of asthma, bipolar affective disorder, chronic pain syndrome, constipation, depression, diabetes mellitus, hypertension, fibromyalgia, GERD, morbid obesity, obstructive sleep apnea, osteoarthritis, PTSD presents from home with complaints of abdominal pain that began 2 days ago. Pain is located in the epigastric region and right upper and right lower abdomen. States pain is a 9 out of 10 and associated with nausea but no vomiting. She was found to have a mild leukocytosis of 13.9, GFR of 51 which is down from her baseline of 60-90. CT abdomen and pelvis is positive for a focal area of omental and mesenteric fat inflammation in the upper abdomen to the right of the midline this may represent an area of omental infarct with secondary inflammation this may be related to distal gastric or proximal duodenal ulceration. Surgery was consulted, Dr. Maya would like to perform an endoscopy in the morning. In the ER she received a dose of fentanyl, Protonix and Levaquin with Flagyl. She is being admitted for intractable abdominal pain. Medical History (Last Reviewed 12/23/19 @ 12:06 by Joel Parada MD) Cervical radiculopathy (Chronic) Left arm and hand Essential hypertension (Chronic) Failed back syndrome of cervical spine (Chronic) Major depression (Chronic) Abscess (Acute) Osteoarthritis (Chronic) Bipolar affective disorder, current episode depressed (Chronic) Borderline personality disorder (Chronic) SHAHLA (obstructive sleep apnea) (Chronic) Acquired hypothyroidism (Chronic) Hyperlipidemia type II (Chronic) Type IIa Constipation (Chronic) Asthma (Chronic) Fibromyalgia (Chronic) Stable Abnormal Pap smear of cervix Onset Date: ~1989 Allergic rhinitis Onset Date: Unknown Asthma Onset Date: ~08/2011 Intermittent Chronic pain syndrome Onset Date: ~04/2014 Chronic venous insufficiency Onset Date: ~11/2016 Constipation Onset Date: ~09/2015 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%, left ear 20% Depression Onset Date: Unknown Diabetes mellitus Onset Date: Unknown Edema Onset Date: ~11/2016 Fibromyalgia Onset Date: ~09/2015 Gastroesophageal reflux Onset Date: Unknown Hepatomegaly Onset Date: ~09/2012 Hyperlipidemia Onset Date: Unknown Hypertension, essential Onset Date: Unknown Insomnia Onset Date: ~11/2016 Interstitial cystitis Onset Date: Unknown MRSA (methicillin resistant staph aureus) culture positive Onset Date: 05/31/18 rt groin requiring surgery and wound vac, ATB Malignant neoplasm of thyroid gland Onset Date: ~02/2010 Meniere disease Onset Date: ~03/2011 Meningioma Onset Date: ~09/2012 left parafalcine Menometrorrhagia Onset Date: Unknown Mild concentric left ventricular hypertrophy (LVH) Onset Date: ~05/2017 EF 65-70%, diastolic dysfunction, Echo, [facility], 05/25/2017 Morbid obesity Onset Date: ~09/2011 Neuropathy Onset Date: ~09/2011 SHAHLA (obstructive sleep apnea) Onset Date: ~08/2011 AHI 8.4/hr, lowest O2 sat 76%, [facility] HST, 05/03/2016 Ovarian cyst Onset Date: Unknown PTSD (post-traumatic stress disorder) Onset Date: Unknown event from childhood Rhinitis, chronic Onset Date: ~09/2015 Tinnitus Onset Date: Unknown Vertigo Onset Date: Unknown Vitamin B12 deficiency Onset Date: Unknown Cough (Resolved) Depression (Resolved) Gastroenteritis (Resolved) Has received influenza vaccination in current influenza season (Resolved) Onset Date: ~08/19/18 Hyperlipidemia (Resolved) Hypertension (Resolved) Otitis media (Resolved) PTSD (post-traumatic stress disorder) (Resolved) Sleep apnea (Resolved) Cellulitis (Inactive) Sinusitis (Inactive) Vertigo (Inactive) Surgical History: Surgical History (Last Reviewed 12/23/19 @ 12:06 by Joel Parada MD) Total knee replacement status (Chronic) 04/03/18 Arianna Status post total right knee replacement (Chronic) 06/04/17 Arianna History of knee replacement procedure of right knee Onset Date: 04/03/18 S/P arthroscopy of right shoulder Onset Date: 07/07/19 Right shoulder arthroscopy with revision mini open rotator cuff repair of the supraspinatus tendon, biceps tenotomy, labral debridement, Júnior procedure- Dr. Keller S/P wrist surgery Onset Date: ~201204/10/2013, 03/2015. Venancio- Right, left wrist tendon release Colonoscopy planned Onset Date: ~04/2014 Sandrita-normal recheck 10years De Quervain's disease (tenosynovitis) Onset Date: ~03/2015 Surgery left H/O arthroscopy of shoulder Onset Date: ~09/2016 right with mini open rotator cuff repair supraspinatus and arthroscopic debridement of the labrum- Dr Keller H/O brain surgery Onset Date: ~02/2016 Dr Cuevas, [place] H/O cervical biopsy Onset Date: Unknown cyst on cervix had a biopsy done and this was normal H/O dilation and curettage Onset Date: ~1985 miscarriages in 1984 and 1985 H/O laparoscopy Onset Date: ~2010 right s/o H/O sinus surgery Onset Date: ~2003 Dr Sullivan H/O thyroidectomy Onset Date: ~02/22, 03/25. Removed rt side initially with malignant nodule. Second surgery removed lt side H/O tubal ligation Onset Date: ~1991 History of arthroscopic knee surgery Onset Date: ~05/2014 Left knee. Chondroplasty of MFC. LFC, partial lateral meniscectomy History of carpal tunnel release Onset Date: ~2003 Bryce, right wrist. Revision 02/02/2016 right open carpal tunnel release per Dr Keller History of cholecystectomy Onset Date: ~2009 Tinguely-lap History of endometrial biopsy Onset Date: ~09/2010 Negative for malignancy History of esophagogastroduodenoscopy Onset Date: ~1995 1995, 11/26/2009-Tinguely History of incision and drainage Onset Date: ~2001 Tinguely- ABD wall abcess History of salpingo-oophorectomy Onset Date: ~2010 Right- [place] History of total knee arthroplasty Onset Date: ~05/[address] Keller Hx of nasal septoplasty Onset Date: ~2004 Dr Sullivan Previous back surgery Onset Date: ~2006 Lumbar, Dr Cuevas S/P cervical spinal fusion Onset Date: ~07/2005 Dr Aceves, 2005, 08/03/2010, 03/04/2012 S/P epidural steroid injection Onset Date: ~2007 2007, 2009 Multiple C6-7, C7-T1 S/P right knee arthroscopy Onset Date: Unknown x 2 S/P rotator cuff repair Onset Date: ~09/2016 right- Dr Keller Tonsillectomy planned Onset Date: ~1967 Family History: Family History (Last Reviewed 12/23/19 @ 12:06 by Joel Parada MD) Brother Hypertension Gout Daughter Hypertension Hypothyroidism Father Hypertension Heart disease Myocardial infarction Mother Hypertension Alzheimers disease TIA (transient ischemic attack) Gallbladder disease Social History: (Last Reviewed 12/23/19 @ 12:06 by Joel Parada MD) Social History: jail: No Marital status: Single household members: friend(s) number of children: 3 current occupational status: disabled Highest education level completed: high school graduate Service: No Tobacco: Smoking Status: Current every day smoker tobacco type: cigarettes Smoking cigarettes per day: 6 Alcohol: alcohol intake: current Alcohol type: wine, hard liquor alcohol intake frequency: holiday/special occasion details: 2-3 drinks occasionally Substance Use: substance use type: does not use Dietary Habits: caffeine: Yes caffeine comment: rare Type: carbonated beverages Exercise: Physical activity functional status: normal ROM and activity frequency: does not exercise Review Of Systems (GEN) - Review of Systems Generalized/Overall Review: Absent: Fever Respiratory: Absent: Shortness of Breath Cardiac: Absent: Chest Pain Abdominal: Present: Nausea, Abdominal Pain - Right upper quadrant right lower quadrant and epigastric. Absent: Vomiting Misc: All systems neg except as marked Immunizations: IMMUNIZATION HX Immunizations Up to Date Yes History of Influenza Vaccine Yes Hx Pneumococcal Vaccination No Allergies/Adverse Reactions: Allergies Allergy/AdvReac Type Severity Reaction Status Date / Time meloxicam [From Mobic] Allergy Intermediate swelling Verified 12/23/19 11:36 in extremites oxycodone Allergy Intermediate "knocks Verified 12/23/19 11:36 her out" benzoin Allergy Mild ITCH, Verified 12/23/19 11:36 RASH, BURNING gabapentin Allergy Mild sales floor team leader Verified 12/23/19 11:36 disorder Penicillins Allergy Mild Hives Verified 12/23/19 11:36 alcohol Allergy rash Verified 12/23/19 11:36 [From Mastisol Liquid Adhesive] gum mastic Allergy rash Verified 12/23/19 11:36 [From Mastisol Liquid Adhesive] methyl salicylate Allergy rash Verified 12/23/19 11:36 [From Mastisol Liquid Adhesive] storax Allergy rash Verified 12/23/19 11:36 [From Mastisol Liquid Adhesive] tizanidine [Tizanidine] AdvReac Mild dizzy, dry Verified 12/23/19 11:36 mouth Home Medications: HOME MEDICATIONS ascorbic acid (vitamin C) 1,000 mg tablet 1,000 mg PO DAILY tab 01/13/18 [Last Taken Unknown] Nystatin 1 gm TOPICAL DAILY PRN #1 powder 07/22/18 [Last Taken Unknown] losartan 100 mg tablet 100 mg PO DAILY #90 tab 01/01/19 [Last Taken Unknown] esomeprazole magnesium 40 mg capsule,delayed release 40 mg PO DAILY #90 cap 06/02/19 [Last Taken Unknown] rosuvastatin 5 mg tablet 5 mg PO DAILY #30 tab 06/27/19 [Last Taken Unknown] diclofenac sodium 1 % topical gel 2 g TOPICAL HS #100 g 09/30/19 [Last Taken Unknown] propranolol 120 mg capsule,24 hr,extended release 120 mg PO HS #30 cap 09/30/19 [Last Taken Unknown] pregabalin 75 mg capsule 150 mg PO BID #120 cap 10/14/19 [Last Taken Unknown] alprazolam 2 mg tablet 2 mg PO BID PRN #60 tab 10/27/19 [Last Taken Unknown] brexpiprazole 3 mg tablet 3 mg PO HS #30 tab 10/27/19 [Last Taken Unknown] buspirone 10 mg tablet 10 mg PO TID #90 tab 10/27/19 [Last Taken Unknown] duloxetine 60 mg capsule,delayed release 120 mg PO HS #60 cap 10/27/19 [Last Taken Unknown] lamotrigine 150 mg tablet 150 mg PO BID #60 tab 10/27/19 [Last Taken Unknown] ropinirole 2 mg tablet 2 mg PO HS #30 tab 10/27/19 [Last Taken Unknown] trazodone 100 mg tablet 200 mg PO HS PRN #60 tab 10/27/19 [Last Taken Unknown] levothyroxine 125 mcg tablet 125 mcg PO DAILY #90 tab 11/11/19 [Last Taken Unknown] levothyroxine 200 mcg tablet 200 mcg PO DAILY #90 tab 11/11/19 [Last Taken Unknown] Exam - Exam Vital Signs: Vital Signs - Last Taken Temp 36.1 C 12/23/19 11:36 Pulse 85 12/23/19 16:56 Resp 14 12/23/19 16:56 BP 141/83 H 12/23/19 16:56 Pulse Ox 93 12/23/19 16:56 Constitutional: Present: Alert, Cooperative, Well developed, Well nourished, No distress, Morbidly obese ENT Exam: Present: hearing grossly normal Eye Exam: bilateral eye: normal inspection, PERRL, EOMI Neck: Present: non-tender, supple. Absent: lymphadenopathy (R), lymphadenopathy (L) Back Exam: Present: normal inspection, no CVA tenderness, no vertebral tenderness Respiratory: Present: lungs clear, no respiratory distress, no accessory muscle use, No wheezing. Absent: crackles, rhonchi Cardiovascular/Chest: Present: regular rate, rhythm, no edema, no murmur Peripheral Pulses: dorsalis-pedis (R): 1+, dorsalis-pedis (L): 1+ Abdomen: Present: Normal bowel sounds, soft, obese, tender - Epigastric, right upper quadrant and right lower quadrant, no rebound tenderness. Absent: guarding, rigidity Extremity: Present: no pedal edema Skin Exam: Present: normal color, warm/dry Neurologic: Present: alert, normal mood/affect Appearance: Present: appropriate appearance Eye contact: Present: cooperative Thoughts: Present: normal mood /affect Diagnostic Studies: Abnormal Lab Results 12/23/19 12/23/19 12/23/19 Range/Units 11:56 12:06 12:06 WBC 13.9 H (4.0-10.5) K/mm3 RDW 14.2 H (11.5-14.0) % Immature Gran % (Auto) 0.60 H (0.001-0.429) % Immature Gran # (Auto) 0.09 H (0.000-0.0310) K/mm3 Neutrophils % 84.3 H (42-75.0) % Lymphocytes % 10.2 L (20-51) % Neutrophils # 11.8 H (1.3-6.0) K/mm3 Lymphocytes # 1.42 L (1.5-3.5) k/mm3 Est GFR (Non-Af Amer) 51 L (60-130) mL/min Random Glucose 199 H (70-110) mg/dL Albumin 3.3 L (3.4-5.0) gm/dl Urine Protein 100 H (NEGATIVE) mg/dL Urine Bilirubin 1 H (NEGATIVE) mg/dl Laboratory Results WBC 13.9 K/mm3 (4.0-10.5) H 12/23/19 12:06 RBC 4.65 M/mm3 (4.2-5.4) 12/23/19 12:06 Hgb 13.4 gm/dL (12.5-16.0) 12/23/19 12:06 Hct 41.0 % (37.0-47.0) 12/23/19 12:06 MCV 88.2 fl (78-100) 12/23/19 12:06 MCH 28.8 pg (27-31) 12/23/19 12:06 MCHC 32.7 g/dl (32-36) 12/23/19 12:06 RDW 14.2 % (11.5-14.0) H 12/23/19 12:06 Plt Count 362 K/mm3 (150-450) 12/23/19 12:06 MPV 9.3 fl (8-12.5) 12/23/19 12:06 Immature Gran % (Auto) 0.60 % (0.001-0.429) H 12/23/19 12:06 Immature Gran # (Auto) 0.09 K/mm3 (0.000-0.0310) H 12/23/19 12:06 Neutrophils % 84.3 % (42-75.0) H 12/23/19 12:06 Lymphocytes % 10.2 % (20-51) L 12/23/19 12:06 Monocytes % 4.4 % (0.0-9) 12/23/19 12:06 Eosinophils % 0.3 % (0.0-3.0) 12/23/19 12:06 Basophils % 0.2 % (0.0-1.0) 12/23/19 12:06 Nucleated RBC % 0.0 k/mm3 (0-1) 12/23/19 12:06 Neutrophils # 11.8 K/mm3 (1.3-6.0) H 12/23/19 12:06 Lymphocytes # 1.42 k/mm3 (1.5-3.5) L 12/23/19 12:06 Monocytes # 0.6 k/mm3 (0.0-1.0) 12/23/19 12:06 Eosinophils # 0.0 k/mm3 (0.0-0.7) 12/23/19 12:06 Absolute Basophils 0.0 k/mm3 (0.0-0.1) 12/23/19 12:06 Sodium 139 mmol/L (132-142) 12/23/19 12:06 Plasma Sodium 141 mmol/L (130-142) 12/23/19 12:06 Potassium 3.8 mmol/L (3.4-4.6) 12/23/19 12:06 Chloride 101 mmol/L (97-106) 12/23/19 12:06 Carbon Dioxide 29.7 mmol/L (24-32.6) 12/23/19 12:06 Anion Gap 12.1 mmol/L (6.8-13.8) 12/23/19 12:06 BUN 11 mg/dL (3-23) 12/23/19 12:06 Creatinine 1.17 mg/dL (0.4-1.4) 12/23/19 12:06 Est GFR (Non-Af Amer) 51 mL/min (60-130) L 12/23/19 12:06 BUN/Creatinine Ratio 9.4 (9.0-21.6) 12/23/19 12:06 Random Glucose 199 mg/dL (70-110) H 12/23/19 12:06 Calcium 8.8 mg/dL (7.9-10.9) 12/23/19 12:06 Calcium Adj for Albumin 9.0 mg/dL (8.4-10.2) 12/23/19 12:06 Total Bilirubin 0.5 mg/dL (0.0-1.1) 12/23/19 12:06 AST 15 U/L (0-48) 12/23/19 12:06 ALT 24 U/L (19-67) 12/23/19 12:06 Alkaline Phosphatase 92 U/L (50-170) 12/23/19 12:06 Total Protein 7.5 gm/dL (6.2-8.2) 12/23/19 12:06 Albumin 3.3 gm/dl (3.4-5.0) L 12/23/19 12:06 Lipase 97 U/L (73-393) 12/23/19 12:06 Serum HCG, Qual Negative (NEGATIVE) 12/23/19 12:06 Urine Color Dark yellow 12/23/19 11:56 Urine Appearance Clear (CLEAR) 12/23/19 11:56 Urine pH 5.5 pH (5.0-7.0) 12/23/19 11:56 Ur Specific [place] >=1.030 SP.GR. (1.005-1.010) 12/23/19 11:56 Urine Protein 100 mg/dL (NEGATIVE) H 12/23/19 11:56 Urine Glucose (UA) Negative mg/dL (NEGATIVE) 12/23/19 11:56 Urine Ketones Negative mg/dL (NEGATIVE) 12/23/19 11:56 Urine Blood Negative /ul (NEGATIVE) 12/23/19 11:56 Urine Nitrate Negative (NEGATIVE) 12/23/19 11:56 Urine Bilirubin 1 mg/dl (NEGATIVE) H 12/23/19 11:56 Urine Ictotest Negative (NEGATIVE) 12/23/19 11:56 Prot Sulfosalicylic Acd Negative mg/dL (0) 12/23/19 11:56 Urine Urobilinogen Normal EU/dl (NORMAL) 12/23/19 11:56 Ur Leukocyte Esterase Negative /ul (NEGATIVE) 12/23/19 11:56 Urine RBC None seen /hpf (0-5) 12/23/19 11:56 Urine WBC 0-5 /hpf (0-5) 12/23/19 11:56 Ur Epithelial Cells 0-5 /hpf (0-5) 12/23/19 11:56 Urine Bacteria None seen (NONE) 12/23/19 11:56 Urine Culture Comments No culture indicated 12/23/19 11:56 Assessment/Plan - Narrative Narrative: 54-year-old female with a past medical history of asthma, bipolar affective disorder, chronic pain syndrome, constipation, depression, diabetes mellitus, hypertension, fibromyalgia, GERD, morbid obesity, obstructive sleep apnea, osteoarthritis, PTSD presents from home with complaints of abdominal pain that began 2 days ago. Pain is located in the epigastric region and right upper and right lower abdomen. States pain is a 9 out of 10 and associated with nausea but no vomiting. She was found to have a mild leukocytosis of 13.9, GFR of 51 which is down from her baseline of 60-90. CT abdomen and pelvis is positive for a focal area of omental and mesenteric fat inflammation in the upper abdomen to the right of the midline this may represent an area of omental infarct with secondary inflammation this may be related to distal gastric or proximal duodenal ulceration. Surgery was consulted, Dr. Maya would like to perform an endoscopy in the morning. In the ER she received a dose of fentanyl, Protonix and Levaquin with Flagyl. She is being admitted for intractable abdominal pain. Plan #1 Continue with IV Protonix #2 patient will be n.p.o. except for ice chips #3 continue with pain management #4 Zofran for nausea #5 CBC and CMP in the morning #6 she is scheduled for an endoscopy in the morning - Assessment/Plan (1) Abdominal pain Problem: Acute Qualifiers: Abdominal location: right upper quadrant Qualified Code(s): R10.11 - Right upper quadrant pain (2) Intractable pain Problem: Acute (3) Diabetes mellitus type 2 in obese Problem: Chronic (4) Essential hypertension Problem: Chronic (5) Benign essential hypertension Problem: Chronic (6) Osteoarthritis Problem: Chronic Qualifiers: (7) SHAHLA (obstructive sleep apnea) Problem: Chronic (8) Acquired hypothyroidism Problem: Chronic (9) Hyperlipidemia type II Problem: Chronic (10) Fibromyalgia Problem: Chronic
[2019-12-23] MEDS ORDERED: ONDANSETRON HCL/PF 2 MG/ML VIAL IV PRN (18:15)
[2019-12-23] MEDS ORDERED: fentaNYL CITRATE/PF 50 MCG/ML AMPUL IV PRN (18:26)
--- NOTE | 2019-12-23 19:20 | CONS ---
HPI - General Date of Service: 12/23/19 - The patient was initially examined in the emergency room and discussed with both Dr. Parada and Dr. Smith Source: patient, RN/MD, RN notes reviewed, old records Exam Limitations: no limitations - History of Present Illness Timing/Duration: other - She states she started having pain on 12/21/2019 Modifying Factors - (Worsens): Reports: movement Modifying Factors - (Improves): Reports: rest Associated Symptoms: nausea Allergies/Adverse Reactions: Allergies meloxicam [From Mobic] Allergy (Intermediate, Verified 12/23/19 11:36) swelling in extremites oxycodone Allergy (Intermediate, Verified 12/23/19 11:36) "knocks her out" "knocks her out" benzoin Allergy (Mild, Verified 12/23/19 11:36) ITCH, RASH, BURNING gabapentin Allergy (Mild, Verified 12/23/19 11:36) game programmer disorder Penicillins Allergy (Mild, Verified 12/23/19 11:36) Hives alcohol [From Mastisol Liquid Adhesive] Allergy (Verified 12/23/19 11:36) rash gum mastic [From Mastisol Liquid Adhesive] Allergy (Verified 12/23/19 11:36) rash methyl salicylate [From Mastisol Liquid Adhesive] Allergy (Verified 12/23/19 11:36) rash storax [From Mastisol Liquid Adhesive] Allergy (Verified 12/23/19 11:36) rash tizanidine [Tizanidine] Adverse Reaction (Mild, Verified 12/23/19 11:36) dizzy, dry mouth Home Medications: Home Medications Medication Instructions Recorded Last Taken ascorbic acid (vitamin C) 1,000 mg 1,000 mg PO DAILY tab 01/13/18 Unknown tablet Nystatin 1 gm TOPICAL DAILY PRN #1 powder 07/22/18 Unknown losartan 100 mg tablet 100 mg PO DAILY #90 tab 01/01/19 Unknown esomeprazole magnesium 40 mg 40 mg PO DAILY #90 cap 06/02/19 Unknown capsule,delayed release rosuvastatin 5 mg tablet 5 mg PO DAILY #30 tab 06/27/19 Unknown diclofenac sodium 1 % topical gel 2 g TOPICAL HS #100 g 09/30/19 Unknown propranolol 120 mg capsule,24 120 mg PO HS #30 cap 09/30/19 Unknown hr,extended release pregabalin 75 mg capsule 150 mg PO BID #120 cap 10/14/19 Unknown alprazolam 2 mg tablet 2 mg PO BID PRN #60 tab 10/27/19 Unknown brexpiprazole 3 mg tablet 3 mg PO HS #30 tab 10/27/19 Unknown buspirone 10 mg tablet 10 mg PO TID #90 tab 10/27/19 Unknown duloxetine 60 mg capsule,delayed 120 mg PO HS #60 cap 10/27/19 Unknown release lamotrigine 150 mg tablet 150 mg PO BID #60 tab 10/27/19 Unknown ropinirole 2 mg tablet 2 mg PO HS #30 tab 10/27/19 Unknown trazodone 100 mg tablet 200 mg PO HS PRN #60 tab 10/27/19 Unknown levothyroxine 125 mcg tablet 125 mcg PO DAILY #90 tab 11/11/19 Unknown levothyroxine 200 mcg tablet 200 mcg PO DAILY #90 tab 11/11/19 Unknown Procedures Application of splint (03/14/13) Arthroscopy, knee (05/19/14) Colonoscopy (05/11/14) DX ULTRASOUND-HEAD/NECK (01/28/10) Excision of Right Shoulder Joint, Percutaneous Endoscopic Approach (10/02/16) Excision of semilunar cartilage of knee (05/19/14) Exploration of tendon sheath of hand (04/09/15) Fluoroscopy of Right Shoulder (09/11/16) Injection of anesthetic into spinal canal for analgesia (06/17/10) Injection of other agent into spinal canal (06/17/10) Injection of steroid (06/17/10) LAPAROSCOPIC CHOLECYSTECTOMY (12/21/09) Laparoscopic unilateral salpingo-oophorectomy (08/24/10) OTHER ENDOSCOPY OF SM INTEST (11/26/09) Other arthrotomy, wrist (04/10/13) Other incision with drainage of skin and subcutaneous tissue (04/02/02) Other septoplasty (08/18/04) Other turbinectomy (08/18/04) PERCUTAN NEEDLE BX OF THYROID GLAND (01/28/10) Release Left Lower Arm and Wrist Tendon, Open Approach (04/09/15) Release Median Nerve, Open Approach (02/02/16) Repair Right Shoulder Tendon, Open Approach (10/02/16) Replacement of cast on upper limb (05/04/99) Medications - Medications Current Medications: Current Medications Levofloxacin/Dextrose (Levaquin) 500 mg in 100 mls @ 100 mls/hr IV ONCE KHUSHBOO; Protocol Stop: 01/22/20 17:31 Last Infusion: 12/23/19 18:46 Dose: Infused Documented by: Metronidazole (Flagyl) 500 mg in 100 mls @ 100 mls/hr IV ONCE KHUSHBOO; Protocol Stop: 01/22/20 17:31 Last Infusion: 12/23/19 18:48 Dose: Infused Documented by: Sodium Chloride (Sodium Chloride 0.9%) 1,000 mls @ 150 mls/hr IV .Q6H40M ONE Stop: 12/24/19 00:03 Last Admin: 12/23/19 18:44 Dose: 150 mls/hr Documented by: Review of Systems - Review of Systems Generalized/Overall Review: Absent: Chills, Fever EENTM: Present: No Symptoms Reported Respiratory: Absent: Cough, Shortness of Breath Cardiac: Absent: Chest Pain Abdominal: Present: Nausea, Abdominal Pain, Other - States she has had intermittent diarrhea (twice per week) for several weeks. On Sunday however she began having severe pain in the right upper abdomen and along the right flank anteriorly. It is associated with some nausea. It hurts to move or cough Genitourinary: Present: No Symptoms Reported, Frequency, Nocturia Musculoskeletal: Present: Other - She has chronic arthritic complaints and fibromyalgia Neurological: Present: Other - No new neurologic symptoms Skin: Present: No Symptoms Reported Physical Examination - Exam Vital Signs: Vital Signs - Last Taken Temp 36.8 C 12/23/19 18:56 Pulse 100 12/23/19 18:56 Resp 18 12/23/19 18:56 BP 136/56 12/23/19 18:56 Pulse Ox 100 12/23/19 18:56 O2 Oxygen Delivery Method Room Air Constitutional: Present: Alert, Oriented x3, Cooperative, Morbidly obese ENT Exam: Present: normal ENT inspection Eye Exam: bilateral eye: normal inspection Neck: Present: normal inspection, other - Short thick neck Breasts: Present: Exam deferred Respiratory: Present: no respiratory distress Cardiovascular/Chest: Present: regular rate, rhythm Abdomen: Present: obese, other - Her abdomen is soft. She has diffuse direct tenderness and marked direct tenderness in the right upper quadrant. Although she does not guard she does have increased pain with sudden removal of the examining hand. There is no percussion tenderness. 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 CT scan shows an inflammatory reaction in the fat in the right upper quadrant. There is an annular thickening in the distal stomach/pylorus area, although there is no leakage of CT contrast or evidence of gas. Lab/Microbiology results last 24 hrs: Abnormal/Pending Laboratory Last 24 HRS 12/23/19 12/23/19 12/23/19 12:06 12:06 11:56 WBC 13.9 H RDW 14.2 H Immature Gran % (Auto) 0.60 H Immature Gran # (Auto) 0.09 H Neutrophils % 84.3 H Lymphocytes % 10.2 L Neutrophils # 11.8 H Lymphocytes # 1.42 L Est GFR (Non-Af Amer) 51 L Random Glucose 199 H Albumin 3.3 L Urine Protein 100 H Urine Bilirubin 1 H - Assessments/Findings (1) Abnormal CT of the abdomen Diagnosis(s): The exact etiology of the process in the right upper quadrant is unclear, however it does appear to be inflammatory, whether from omental compromise or possible gastric process is undetermined currently. She denies taking any NSAIDs. She states her heartburn is controlled with her current medication however she gets "horrible rotten egg belches" which could be due to a distal gastric process. She will need to be admitted for pain control with empiric IV antibiotics. An EGD could be performed to examine the distal stomach, however she has had p.o. contrast for CT scan, so an EGD tonight would require general endotracheal anesthetic to prevent aspiration. It would therefore be more prudent to keep her at n.p.o. status overnight with exception of perhaps ice chips and essential medications--- with plan for EGD tomorrow morning. Reviewed and electronically signed Problem: Acute
[2019-12-23] MEDS ORDERED: fentaNYL CITRATE/PF 50 MCG/ML AMPUL ONE (23:38)
[2019-12-24 06:30] LABS: Hematocrit 32.6 % (37.0-47.0); Hemoglobin 10.5 gm/dL (12.5-16.0); Mean Cell Volume 89.3 fl (78-100); Mean Corpuscular Hemoglobin 28.8 pg (27-31); Mean Corpuscular Hgb Conc 32.2 g/dl (32-36); Mean Platelet Volume 9.5 fl (8-12.5); Neutrophil % 65.7 % (42-75.0); Platelet Count 240 K/mm3 (150-450); Red Blood Count 3.65 M/mm3 (4.2-5.4); Red Cell Distribution Width 14.6 % (11.5-14.0); White Blood Count 9.1 K/mm3 (4.0-10.5)
[2019-12-24 06:45] LABS: Albumin * 2.9 gm/dl (3.4-5.0); Anion Gap 8.1 mmol/L (6.8-13.8); BUN/Creatinine Ratio 7.2 (9.0-21.6); Bilirubin, Total 0.5 mg/dL (0.0-1.1); Ca. Corrected For Albumin 8.5 mg/dL (8.4-10.2); Calcium * 7.9 mg/dL (7.9-10.9); Carbon Dioxide 30.4 mmol/L (24-32.6); Potassium 3.5 mmol/L (3.4-4.6); Total Protein 6.3 gm/dL (6.2-8.2)
[2019-12-24] MEDS ORDERED: metroNIDAZOLE/SODIUM CHLORIDE 500 MG/100 ML BAG IV SCH (07:45)
[2019-12-24] MEDS ORDERED: ACETAMINOPHEN 1,000 MG/100 ML BTL IV ONE (07:51)
--- NOTE | 2019-12-24 09:56 | ANES ---
Anesthesia Pre Procedure Eval Vitals/Labs: Last Vital Signs Temp 37.1 C 12/24/19 06:49 Pulse 89 12/24/19 06:49 Resp 7 L 12/24/19 06:49 BP 139/95 H 12/24/19 06:49 Pulse Ox 100 12/24/19 06:49 HOME MEDICATIONS ascorbic acid (vitamin C) 1,000 mg tablet 1,000 mg PO DAILY tab 01/13/18 [Last Taken Unknown] Nystatin 1 gm TOPICAL DAILY PRN #1 powder 07/22/18 [Last Taken Unknown] losartan 100 mg tablet 100 mg PO DAILY #90 tab 01/01/19 [Last Taken Unknown] esomeprazole magnesium 40 mg capsule,delayed release 40 mg PO DAILY #90 cap 06/02/19 [Last Taken Unknown] rosuvastatin 5 mg tablet 5 mg PO DAILY #30 tab 06/27/19 [Last Taken Unknown] diclofenac sodium 1 % topical gel 2 g TOPICAL HS #100 g 09/30/19 [Last Taken Unknown] propranolol 120 mg capsule,24 hr,extended release 120 mg PO HS #30 cap 09/30/19 [Last Taken Unknown] pregabalin 75 mg capsule 150 mg PO BID #120 cap 10/14/19 [Last Taken Unknown] alprazolam 2 mg tablet 2 mg PO BID PRN #60 tab 10/27/19 [Last Taken Unknown] brexpiprazole 3 mg tablet 3 mg PO HS #30 tab 10/27/19 [Last Taken Unknown] buspirone 10 mg tablet 10 mg PO TID #90 tab 10/27/19 [Last Taken Unknown] duloxetine 60 mg capsule,delayed release 120 mg PO HS #60 cap 10/27/19 [Last Taken Unknown] lamotrigine 150 mg tablet 150 mg PO BID #60 tab 10/27/19 [Last Taken Unknown] ropinirole 2 mg tablet 2 mg PO HS #30 tab 10/27/19 [Last Taken Unknown] trazodone 100 mg tablet 200 mg PO HS PRN #60 tab 10/27/19 [Last Taken Unknown] levothyroxine 125 mcg tablet 125 mcg PO DAILY #90 tab 11/11/19 [Last Taken Unknown] levothyroxine 200 mcg tablet 200 mcg PO DAILY #90 tab 11/11/19 [Last Taken Unknown] Allergies/Adverse Reactions: Allergies Allergy/AdvReac Type Severity Reaction Status Date / Time meloxicam [From Mobic] Allergy Intermediate swelling Verified 12/23/19 11:36 in extremites oxycodone Allergy Intermediate "knocks Verified 12/23/19 11:36 her out" benzoin Allergy Mild ITCH, Verified 12/23/19 11:36 RASH, BURNING gabapentin Allergy 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:36 disorder Penicillins Allergy Mild Hives Verified 12/23/19 11:36 alcohol Allergy rash Verified 12/23/19 11:36 [From Mastisol Liquid Adhesive] gum mastic Allergy rash Verified 12/23/19 11:36 [From Mastisol Liquid Adhesive] methyl salicylate Allergy rash Verified 12/23/19 11:36 [From Mastisol Liquid Adhesive] storax Allergy rash Verified 12/23/19 11:36 [From Mastisol Liquid Adhesive] tizanidine [Tizanidine] AdvReac Mild dizzy, dry Verified 12/23/19 11:36 mouth - Planned Procedure Planned Procedure: Abdominal pain, Abnormal CT Medication List Reviewed:: Yes Allergies Verified: Yes Medical History (Last Reviewed 12/24/19 @ 09:55 by Joel Arredondo CRNA) Cervical radiculopathy (Chronic) Left arm and hand Essential hypertension (Chronic) Failed back syndrome of cervical spine (Chronic) Major depression (Chronic) Abscess (Acute) Osteoarthritis (Chronic) Bipolar affective disorder, current episode depressed (Chronic) Borderline personality disorder (Chronic) SHAHLA (obstructive sleep apnea) (Chronic) Acquired hypothyroidism (Chronic) Hyperlipidemia type II (Chronic) Type IIa Constipation (Chronic) Asthma (Chronic) Fibromyalgia (Chronic) Stable Abnormal Pap smear of cervix Onset Date: ~1989 Allergic rhinitis Onset Date: Unknown Asthma Onset Date: ~08/2011 Intermittent Chronic pain syndrome Onset Date: ~04/2014 Chronic venous insufficiency Onset Date: ~11/2016 Constipation Onset Date: ~09/2015 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%, 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% Depression Onset Date: Unknown Diabetes mellitus Onset Date: Unknown Edema Onset Date: ~11/2016 Fibromyalgia Onset Date: ~09/2015 Gastroesophageal reflux Onset Date: Unknown Hepatomegaly Onset Date: ~09/2012 Hyperlipidemia Onset Date: Unknown Hypertension, essential Onset Date: Unknown Insomnia Onset Date: ~11/2016 Interstitial cystitis Onset Date: Unknown MRSA (methicillin resistant staph aureus) culture positive Onset Date: 05/31/18 rt groin requiring surgery and wound vac, ATB Malignant neoplasm of thyroid gland Onset Date: ~02/2010 Meniere disease Onset Date: ~03/2011 Meningioma Onset Date: ~09/2012 left parafalcine Menometrorrhagia Onset Date: Unknown Mild concentric left ventricular hypertrophy (LVH) Onset Date: ~05/2017 EF 65-70%, diastolic dysfunction, Echo, [facility], 05/25/2017 Morbid obesity Onset Date: ~09/2011 Neuropathy Onset Date: ~09/2011 SHAHLA (obstructive sleep apnea) Onset Date: ~08/2011 AHI 8.4/hr, lowest O2 sat 76%, [facility] HST, 05/03/2016 Ovarian cyst Onset Date: Unknown PTSD (post-traumatic stress disorder) Onset Date: Unknown event from childhood Rhinitis, chronic Onset Date: ~09/2015 Tinnitus Onset Date: Unknown Vertigo Onset Date: Unknown Vitamin B12 deficiency Onset Date: Unknown Cough (Resolved) Depression (Resolved) Gastroenteritis (Resolved) Has received influenza vaccination in current influenza season (Resolved) Onset Date: ~08/19/18 Hyperlipidemia (Resolved) Hypertension (Resolved) Otitis media (Resolved) PTSD (post-traumatic stress disorder) (Resolved) Sleep apnea (Resolved) Cellulitis (Inactive) Sinusitis (Inactive) Vertigo (Inactive) Surgical History (Last Reviewed 12/24/19 @ 09:55 by Joel Arredondo CRNA) Total knee replacement status (Chronic) 04/03/18 Arianna Status post total right knee replacement (Chronic) 06/04/17 Arianna History of knee replacement procedure of right knee Onset Date: 04/03/18 S/P arthroscopy of right shoulder Onset Date: 07/07/19 Right shoulder arthroscopy with revision mini open rotator cuff repair of the supraspinatus tendon, biceps tenotomy, labral debridement, [facility] ure-Dr. Keller S/P wrist surgery Onset Date: ~201204/10/2013, 03/2015. Venancio- Right, left wrist tendon release Colonoscopy planned Onset Date: ~04/2014 Sandrita-normal recheck 10years De Quervain's disease (tenosynovitis) Onset Date: ~03/2015 Surgery left H/O arthroscopy of shoulder Onset Date: ~09/2016 right with mini open rotator cuff repair supraspinatus and arthroscopic debridement of the labrum- Dr Keller H/O brain surgery Onset Date: ~02/2016 Dr Cuevas, [place] H/O cervical biopsy Onset Date: Unknown cyst on cervix had a biopsy done and this was normal H/O dilation and curettage Onset Date: ~1985 miscarriages in 1984 and 1985 H/O laparoscopy Onset Date: ~2010 right s/o H/O sinus surgery Onset Date: ~2003 Dr Sullivan H/O thyroidectomy Onset Date: ~02/22, 03/25. Removed rt side initially with malignant nodule. Second surgery removed lt side H/O tubal ligation Onset Date: ~1991 History of arthroscopic knee surgery Onset Date: ~05/2014 Left knee. Chondroplasty of MFC. LFC, partial lateral meniscectomy History of carpal tunnel release Onset Date: ~2003 Bryce, right wrist. Revision 02/02/2016 right open carpal tunnel release per Dr Keller History of cholecystectomy Onset Date: ~2009 Michelleely-lap History of endometrial biopsy Onset Date: ~09/2010 Negative for malignancy History of esophagogastroduodenoscopy Onset Date: ~1995 1995, 11/26/2009-[place] History of incision and drainage Onset Date: ~2001 Michelleely- ABD wall abcess History of salpingo-oophorectomy Onset Date: ~2010 Right- Staudte History of total knee arthroplasty Onset Date: ~05/[address] Keller Hx of nasal septoplasty Onset Date: ~2004 Dr Sullivan Previous back surgery Onset Date: ~2006 Lumbar, Dr Cuevas S/P cervical spinal fusion Onset Date: ~07/2005 Dr Aceves, 2006, 08/03/2010, 03/04/2012 S/P epidural steroid injection Onset Date: ~2007 2007, 2009 Multiple C6-7, C7-T1 S/P right knee arthroscopy Onset Date: Unknown x 2 S/P rotator cuff repair Onset Date: ~09/2016 right- Dr Keller Tonsillectomy planned Onset Date: ~1967 Family History (Last Reviewed 12/24/19 @ 09:55 by Joel Arredondo CRNA) Brother Hypertension Gout Daughter Hypertension Hypothyroidism Father Hypertension Heart disease Myocardial infarction Mother Hypertension Alzheimers disease TIA (transient ischemic attack) Gallbladder disease - Family Anesthesia History Family History:: no untoward family reactions to anesthesia - Airway/Neck/Teeth Teeth Condition: intact Neck Exam: limited range of motion Mallampatti Score: 4 Thyromental (T-M) distance: > 6 cm Mandibulo Hyoid distance: > 3 cm - Respiratory Respiratory Physical: lungs clear Smoking Status: Current every day smoker Discussed smoking cessation including day of surgery: Yes Sleep Apnea currently treated: No Sleep Apnea by current assessment: Yes Discussed Risks/Treatment of SHAHLA: Yes - Cardiovascular Cardiac History: hypertension, hyperlipidemia Tolerate Activity: Fair Heart Sounds: S1 & S2, Regular - Gastrointestinal NPO since: MN - Anesthesia Assessment and Plan ASA Class: PS, III Anesthesia Type Plan: MAC Planned difficult intubation/equipment available: No
[2019-12-24] MEDS ORDERED: LIDOCAINE HCL 50 ML VIAL ONE (10:57)
[2019-12-24] MEDS ORDERED: PROPOFOL VIAL IV ONE (10:57)
--- NOTE | 2019-12-24 11:35 | ANES ---
Post Anesthesia Discharge - Transfer of Care Transfer of Care handoff given to nurse: Yes - Discharge to ASU Discharge to ASU-no complications/pt stable: Yes - Alert in room.
--- NOTE | 2019-12-24 11:50 | OR ---
Operative Report - Dictated Report Narrative: Operative Report Date of operation: 12/24/2019 Preoperative diagnosis: Abdominal pain, abnormal CAT scan Postoperative diagnosis: Normal EGD (CLOtest pending) Operation: EGD with biopsy Surgeon: Dr Remy Anesthesia: JESUS Nunez CRNA Indications for procedure: The patient is a 54-year-old female admitted through the emergency room last evening with severe right upper quadrant abdominal pain. CT scan of the abdomen and pelvis revealed inflammation in the mesentery and omentum in the right upper quadrant with ascites. There is questionable abnormality of the distal stomach/duodenum. Rapid COVID-19 test is negative Findings: Underlying obstructive sleep apnea. Relatively normal EGD, specifically no abnormality in the gastric outlet or duodenum out to the ligament of Treitz Narrative of procedure: The patient was identified preoperatively, and prior to the administration of anesthetic a multidisciplinary timeout was observed With the patient in the recumbent position, a bite-block was placed, intravenous sedation administered, and the patient's eyes covered with a towel. The flexible fiberoptic gastroscope was advanced into the posterior pharynx. There was marked crowding of the structures which was relieved only slightly by jaw thrust maneuver, however the mucosa appeared normal. Aside from the epiglottis, the supraglottic larynx was not well visualized. The scope was advanced directly into the esophagus. The esophagus appeared freely distensible with normal mucosa. There was a significant amount of saliva in the esophagus which was carefully suctioned. The esophageal mucosa appeared normal down to the gastroesophageal junction which was sharp and noninflamed. The GE junction appeared normally distensible. The scope was advanced into the stomach which contained a large amount of clear liquid. This was carefully suctioned prior to continuing the exam. The stomach was then insufflated and inspected. The gastric mucosa appeared relatively normal with exception of mild friability. There were no trav ulcers or neoplastic lesions appreciated including a retroflexed view of the gastric fundus. The scope was then redirected toward the pylorus. The pylorus appeared patent. The scope was advanced into the duo denal bulb which appeared normal. The scope was advanced further to the horizontal portion of the duodenum which appeared normal, specifically the villous architecture appeared well preserved and clear bile was present. The scope was slowly withdrawn through the duodenum and duodenal bulb with confirmation that no active ulcer was present. The scope was withdrawn into the stomach and a construction sales representative biopsy of gastric mucosa obtained for CLOtest. The biopsy site was seen to be hemostatic. The insufflated air was removed from the stomach, the scope withdrawn from the patient, and the procedure terminated. The patient tolerated the anesthetic and procedure without complication and was transferred back her room awake and in stable condition. I discussed the findings with Dr. Halina Ervin. Reviewed and electronically signed
--- NOTE | 2019-12-24 11:59 | ANES ---
Post Anesthesia Assessment - Vital Signs Vitals: Last Vital Signs Temp 36.6 C 12/24/19 11:34 Pulse 87 12/24/19 11:49 Resp 20 12/24/19 11:49 BP 136/77 12/24/19 11:49 Pulse Ox 100 12/24/19 11:49 Airway Patency: Normal - Mental Status Level Of Consciousness: Awake, Alert, Appropriate - Pain Level Pain Score: 0 - N/V Assessment Nausea/Vomiting Presence: None Dehydration:: No
--- NOTE | 2019-12-24 12:34 | DS ---
Date of Discharge:: 12/24/19 Hospital Course: Began treatment with antibiotics. Surgery consult obtained. Labwork followed. Patient has improved. No pain right now and only slight tenderness. CT scan showed inflamed omentum in RUQ but nothing else really. Dr. Remy, surgery, just completed an EGD which was normal. Dr. Remy and talked about all of this on the phone, and we agreed we don't know why there are the CT findings she has, antibiotics can be stopped, because we wouldn't know what we were treating, she doesn't need an operation, she can go home today with regular diet, then a CBC, CMP and an office visit with me in 2 days. All of this was discussed by me with the patient who expressed understanding and is willing to follow this plan. Mildly anemic this morning and elevated wbc count has normalized. Procedures Performed: see notes below - EGD Dr. Remy, with helicobacter sampling. Results and Findings: Lab Pending Results 12/23/19 11:56: Urine Color Dark yellow, Urine Appearance Clear, Urine pH 5.5, Ur Specific [place] >=1.030, Urine Protein 100 H, Urine Glucose (UA) Negative, Urine Ketones Negative, Urine Blood Negative, Urine Nitrate Negative, Urine Bilirubin 1 H, Urine Ictotest Negative, Prot Sulfosalicylic Acd Negative, Urine Urobilinogen Normal, Ur Leukocyte Esterase Negative, Urine RBC None seen, Urine WBC 0-5, Ur Epithelial Cells 0-5, Urine Bacteria None seen, Urine Culture Comments No culture indicated 12/23/19 12:06: WBC 13.9 H, RBC 4.65, Hgb 13.4, Hct 41.0, MCV 88.2, MCH 28.8, MCHC 32.7, RDW 14.2 H, Plt Count 362, MPV 9.3, Immature Gran % (Auto) 0.60 H, Immature Gran # (Auto) 0.09 H, Neutrophils % 84.3 H, Lymphocytes % 10.2 L, Monocytes % 4.4, Eosinophils % 0.3, Basophils % 0.2, Nucleated RBC % 0.0, Neutrophils # 11.8 H, Lymphocytes # 1.42 L, Monocytes # 0.6, Eosinophils # 0.0, Absolute Basophils 0.0 12/23/19 12:06: Sodium 139, Plasma Sodium 141, Potassium 3.8, Chloride 101, Carbon Dioxide 29.7, Anion Gap 12.1, BUN 11, Creatinine 1.17, Est GFR (Non-Af Amer) 51 L, BUN/Creatinine Ratio 9.4, Random Glucose 199 H, Calcium 8.8, Calcium Adj for Albumin 9.0, Total Bilirubin 0.5, AST 15, ALT 24, Alkaline Phosphatase 92, Total Protein 7.5, Albumin 3.3 L, Lipase 97 12/23/19 12:06: Serum HCG, Qual Negative 12/24/19 06:00: WBC 9.1 D, RBC 3.65 L, Hgb 10.5 L, Hct 32.6 L, MCV 89.3, MCH 28.8, MCHC 32.2, RDW 14.6 H, Plt Count 240, MPV 9.5, Immature Gran % (Auto) 0.30, Immature Gran # (Auto) 0.03, Neutrophils % 65.7, Lymphocytes % 25.7, Monocytes % 6.2, Eosinophils % 1.8, Basophils % 0.3, Nucleated RBC % 0.0, Neutrophils # 6.0, Lymphocytes # 2.33, Monocytes # 0.6, Eosinophils # 0.2, Absolute Basophils 0.0 12/24/19 06:00: Sodium 142, Plasma Sodium 143 H, Potassium 3.5, Chloride 107 H, Carbon Dioxide 30.4, Anion Gap 8.1, BUN 6, Creatinine 0.83, Est GFR (Non-Af Amer) 76 D, BUN/Creatinine Ratio 7.2 L, Random Glucose 133 H D, Calcium 7.9, Calcium Adj for Albumin 8.5, Total Bilirubin 0.5, AST 13, ALT 19, Alkaline Phosphatase 68, Total Protein 6.3, Albumin 2.9 L 12/24/19 07:55: SARS-CoV-2 (PCR) Not detected Discharge Location: Home Disposition: Home self-care Condition: Good Discharge Activity: Activity as tolerated Discharge Diet: General/regular food Consultation Done:: Dr Remy, surgery Additional Patient Instructions (free text): Will be a TCM follow up appointment. Call as needed for problems or questions. Blood work in the morning 2 days from now, followed by an office visit with me in the morning 2 days from now. Complete Home Medications List: Complete Home Medication List: ascorbic acid (vitamin C) 1,000 mg tablet 1,000 mg PO DAILY tab 01/13/18 Nystatin 1 gm TOPICAL DAILY PRN #1 powder 07/22/18 losartan 100 mg tablet 100 mg PO DAILY #90 tab 01/01/19 esomeprazole magnesium 40 mg capsule,delayed release 40 mg PO DAILY #90 cap 06/02/19 rosuvastatin 5 mg tablet 5 mg PO DAILY #30 tab 06/27/19 diclofenac sodium 1 % topical gel 2 g TOPICAL HS #100 g 09/30/19 propranolol 120 mg capsule,24 hr,extended release 120 mg PO HS #30 cap 09/30/19 pregabalin 75 mg capsule 150 mg PO BID #120 cap 10/14/19 alprazolam 2 mg tablet 2 mg PO BID PRN #60 tab 10/27/19 brexpiprazole 3 mg tablet 3 mg PO HS #30 tab 10/27/19 buspirone 10 mg tablet 10 mg PO TID #90 tab 10/27/19 duloxetine 60 mg capsule,delayed release 120 mg PO HS #60 cap 10/27/19 lamotrigine 150 mg tablet 150 mg PO BID #60 tab 10/27/19 ropinirole 2 mg tablet 2 mg PO HS #30 tab 10/27/19 trazodone 100 mg tablet 200 mg PO HS PRN #60 tab 10/27/19 levothyroxine 125 mcg tablet 125 mcg PO DAILY #90 tab 11/11/19 levothyroxine 200 mcg tablet 200 mcg PO DAILY #90 tab 11/11/19 Forms: Patient Portal Registration
[2019-12-24 14:34] VITALS: BP 140/86
[2019-12-24] MEDS ORDERED: LEVOFLOXACIN IN DEXTROSE 5 % 500 MG/100 ML BAG IV SCH (19:00)
== END 2019-12-24 15:00 | disposition home or self-care (01) ==
LOC: ER 11:33 → MS 11:33
PROVIDERS: ADMIT Internal Medicine; ATTEND Allergy & Immunology
DX: K65.9 Peritonitis, unspecified; G47.33 Obstructive sleep apnea (adult) (pediatric); E11.9 Type 2 diabetes mellitus without complications; E66.01 Morbid (severe) obesity due to excess calories; Z68.42 Body mass index [BMI] 45.0-49.9, adult; M79.7 Fibromyalgia; R10.9 Unspecified abdominal pain; F17.210 Nicotine dependence, cigarettes, uncomplicated; R93.5 Abnormal findings on diagnostic imaging of other abdominal regions, including retroperitoneum; E03.9 Hypothyroidism, unspecified
CPT/HCPCS: 36415; 74177; 80053; 81001; 83690; 84703; 85025; 87081; 96365; 96367; 96368; 96372; 96375; 96376; 99285; G0378; J0131; Q9963; Q9967